=== PATIENT | male | born 1950 | race Caucasian/White ===

== ENCOUNTER 2018-05-10 09:13 | Emergency (ER) | payer OTHER, SELFPAY ==
[2018-05-10 09:14] VITALS: BP 136/76; PULSE 85; RESP 18; TEMP 36.6; O2SAT 98; BMI 27.1
--- NOTE | 2018-05-10 09:26 | CT_ITS ---
STUDY: CT ABDOMEN AND PELVIS WITHOUT CONTRAST REASON FOR EXAM: Male, 68 years old. FLANK PAIN, HEMATURIA, CHOLECYSTECTOMY, PANCREATIC CANCER. RADIATION DOSAGE (If Supplied By Facility): CTDIvol = ( 12.11 ) mGy, DLP = ( 677.92 ) mGycm TECHNIQUE: Transaxial images were obtained from the dome of the diaphragm to the symphysis pubis without oral contrast, and without intravenous contrast. Sagittal and coronal images were reconstructed. Individualized dose optimization techniques were used for this CT. COMPARISON: None. FINDINGS: There is atelectasis at the lung bases. The visualized portions of the heart are within normal limits. There is pneumobilia. There is non-visualization of the gallbladder, which may be secondary to either contraction or a prior cholecystectomy. Normal spleen. There are pancreatic calcifications in the distribution of the ducts consistent with chronic pancreatitis. There is atrophy of the pancreas Normal bilateral adrenal glands. There are multiple small calcifications of the right kidney, less than 2 mm. There are multiple small calcifications of the left kidney, the largest measures up to 3 mm. There is moderate hydroureteronephrosis on the left. There is a 3 mm millimeter calculus at the left uterus (axial image #159 series 2) Normal visualized stomach. Normal small intestine. There is mild amount of retained stool within the colon. There is diffuse atherosclerotic calcification of the abdominal aorta, without a demonstrated aneurysm. Normal inferior vena cava. Normal retroperitoneum. Normal urinary bladder. Normal abdominal wall. There are diffuse degenerative changes of the visualized lumbar spine. CT/Abdomen/Pelvis without Cont IMPRESSION: Moderate left hydroureteronephrosis. 3 mm left bladder calculus. Small bilateral renal calculi. Electronically Signed: Claudia James MD at 12:40 EDT Tel , Service support ,
--- NOTE | 2018-05-10 09:27 | ED.VISSUMM ---
- ER Visit Summary Date of Service: 05/10/18 Chief Complaint: Left flank pain History of Present Illness: The patient is a 68 M presenting with left flank pain. He states it started on Thursday. His pain started suddenly and has been intermittent. He states this feels similar to his previous kidney stones. He has had nausea with no vomiting. He has had mild dysuria and his urine has been dark in color. He has had subjective fevers. Denies diarrhea or constipation. Denies other complaints. Physical Examination: Vitals are stable. Patient is afebrile. Alert no acute distress. HEENT exam is unremarkable. Neck is supple. Lungs are clear and equal bilaterally. Heart is regular rate and rhythm. Abdomen is soft nontender nondistended. No rebound or guarding Back: Left CVA tenderness Extremities are unremarkable. Skin is warm and dry. No rash Remainder of exam is unremarkable. Emergency Department Course and Treatment: Patient is given morphine, Zofran. CBC, chemistries unremarkable other than glucose 131, creatinine 1.55. UA shows 0-5 white blood cells, 25-[address] flank shows moderate left hydroureteronephrosis. 3 mm left bladder calculus. Small bilateral renal calculi. Patient feels improved following pain medications. He is given short course of [place] and Zofran. He is advised to follow-up with his primary care physician. Advised return to ED for worsening complaints. Disposition: Discharge home Impression: Urolithiasis This note was generated with [employer] dictation software. It may contain incorrect words, spelling, and punctuation that were not noted in review of the chart prior to signing ED Disposition - Plan for ED Patient: Chief Complaint: Flank Pain Instructions: ED Stone Renal W Colic Prescriptions: Hydrocodone Bitart/Apap 5-325 [[place] 5MG-325MG] 1 tablet PO Q6H PRN PRN 3 Days #10 tablet PRN Reason: Pain Ondansetron [Zofran Odt] 4 mg PO Q8H PRN PRN #10 tablet PRN Reason: Nausea Referrals: Patel Messer MD [Primary Care Provider] - Tung Fleming MD [STAFF PHYSICIAN] -
[2018-05-10 09:38] LABS: Absolute Lymphocyte Count 1.36 X10^3/ul (0.83-4.51); Absolute Neutrophil Count 6.8 X10^3/uL (2.0-7.7); Basophil# 0.01 X10^3/uL; Basophil% 0.1 % (0-1); Eosinophil# 0.02 X10^3/uL; Eosinophils% 0.2 % (0-5); Hemoglobin 15.1 g/dl (13.0-16.5); Lymphocyte # 1.36 X10^3/ul (4.0); Lymphocyte % 14.7 % (19-41); Mean Corp Hgb Conc 34.3 g/gl (32-36); Mean Corpuscular Hgb 31.3 pg (27.0-32.0); Mean Corpuscular Volume 91.1 fL (80-94); Mean Platelet Vol. 9.3 fl (6.2-12.0); Monocyte# 1.07 X10^3/uL; Monocyte% 11.5 % (0-10); Neutrophil % 73.3 % (47-70); POSITIVE COUNT NO; POSITIVE DIFFERENTIAL NO; POSITIVE MORPHOLOGY NO; Platelet Count 188 K/mm3 (150-450); RBC Distribution Width CV 13.4 % (11.6-14.6); RBC Distribution Width SD 44.3 fl (35.1-43.9); Red Blood Count 4.83 M/mm3 (4.6-6.2); White Blood Count 9.3 K/mm3 (4.4-11.0)
[2018-05-10 09:47] LABS: Anion Gap 10 (5-15); BUN 18 mg/dL (7-18); BUN/Creat Ratio 11.6 RATIO (10-20); Calcium,Total 8.8 mg/dL (8.5-10.1); Chloride 100 mmol/L (98-107); Creatinine, Serum 1.55 mg/dL (0.70-1.30); EST Glomerular Filtration Rate 48 mL/min (>60); Est Glom Filt Rate - Afr Amer 58 mL/min (>60); Estimated Creatinine Clearance 51.46 ml/min; Glucose 131 mg/dL (74-106); Potassium 3.6 mmol/L (3.5-5.1); Sodium Level 136 mmol/L (136-145)
[2018-05-10] MEDS: Ondansetron 4 MG/2 ML Vial IV (09:53)
[2018-05-10] MEDS: Morphine 4 MG/ML Syringe IV ×2 (09:53→11:01)
[2018-05-10] MEDS: 0.9% Normal Saline 1,000 ML 999 ML IV (11:05)
[2018-05-10 11:33] VITALS: BP 163/89; PULSE 67; RESP 14; O2SAT 97
[2018-05-10] MEDS: HYDROmorphone 1 MG/ML Syringe IV (11:36)
[2018-05-10 12:29] LABS: Color, Urine Yellow (Yellow); Glucose, Dipstick Normal (Normal); Ketone-Dipstick 50 mg/dl (Negative); Leukocyte Esterase-Dipstick 25 /ul (Negative); Nitrite-Dipstick Negative (Negative); Occult Blood-Urine 250 /ul (Negative); Protein-Dipstick 30 mg/dl (Negative); Urine Bilirubin Dipstick Negative (Negative); Urine Clarity Sl. Cloudy (Clear); Urine Urobilinogen 1 mg/dl (Normal)
[2018-05-10 12:40] LABS: Bacteria 1+ /hpf (None Seen); Mucous, Urine 2+ /hpf (<or=2+); Red Blood Cells-Urine 25-50 SEEN /hpf (0-5); Squamous Epithelial Cells - UA 0-5 SEEN /hpf (0-5); White Blood Cells 0-5 SEEN /hpf (0-5)
--- NOTE | 2018-05-10 13:34 | ED.DEP ---
ED Disposition - Plan for ED Patient: Chief Complaint: Flank Pain Instructions: ED Stone Renal W Colic Prescriptions: Hydrocodone Bitart/Apap 5-325 [[place] 5MG-325MG] 1 tablet PO Q6H PRN PRN 3 Days #10 tablet PRN Reason: Pain Ondansetron [Zofran Odt] 4 mg PO Q8H PRN PRN #10 tablet PRN Reason: Nausea Referrals: Patel Messer MD [Primary Care Provider] - Tung Fleming MD [STAFF PHYSICIAN] -
[2018-05-10 13:40] VITALS: BP 158/91; PULSE 75; RESP 16; O2SAT 95
== END 2018-05-10 13:58 | disposition home or self-care (01) ==
LOC: ED 10:40
PROVIDERS: Emergency Provider Emergency Medicine; Family Provider Family Medicine; PCP Family Medicine
DX: N21.0 Calculus in bladder (principal); N13.30 Unspecified hydronephrosis; Z87.442 Personal history of urinary calculi
CPT/HCPCS: 74176; 80048; 81001; 85025; 96361; 96374; 96375; 96376; 99283; J7030; A4216; J2405

== ENCOUNTER → 2018-05-13 18:18 | Outpatient (CLI) | payer OTHER, SELFPAY | PROVIDERS: Family Provider Family Medicine; PCP Family Medicine; Visit Provider Nurse Practitioner Adult Health | DX: N39.0 Urinary tract infection, site not specified (principal); R31.9 Hematuria, unspecified | CPT/HCPCS: 87086 ==

== ENCOUNTER 2020-11-20 05:21 | Day surgery (SDC) | payer OTHER, SELFPAY ==
[2020-11-20] VITALS (9 sets, daily range): BP systolic 103–155; BP diastolic 71–89; PULSE 53–63; RESP 16–18; TEMP 36.2–36.7; O2SAT 93–100; BMI 29.1
--- NOTE | 2020-11-20 05:57 | PCM.HP.STD ---
Problem List (1) Screening for intestinal cancer Status: Acute History of Present Illness Date of Admission: 11/20/20 The patient is a 70 year old M who presents for screening colonoscopy today. The patient had a Whipple procedure done by Dr. Bola Arguello in half years ago. He is cared for and referred by Dr. Pb Kruse. The patient states that I assisted him with a colonoscopy 10 years ago. Currently his CEA 19 9 is slightly increased. He is being followed for his pancreatic cancer. He denies abdominal pain. No unexpected weight loss. No bright red blood per rectum or melena. He otherwise has a good feeling of health Past Medical History Allergies No Known Allergies Allergy (Verified 11/12/20 13:06) Home Medications: Ambulatory Orders Medication Instructions Recorded Lipase/Protease/Amylase [Creon Dr 2 cap PO BID 12/21/13 6,000 Units Capsule] Apixaban [Eliquis] 2.5 mg PO BID 05/10/18 Hydrocodone Bitart/Apap 5-325 1 tablet PO Q6H PRN PRN 3 Days #10 05/10/18 [[place] 5MG-325MG] tablet Ondansetron [Zofran Odt] 4 mg PO Q8H PRN PRN #10 tablet 05/10/18 Surgical History: noncontributory Smoking Status: Former smoker Review of Systems Constitutional: Denies: Fever, Night Sweats HEENT: Denies: Difficulty Swallowing Cardiovascular: Denies: Chest Pain Respiratory: Denies: Cough, Shortness of Breath Gastrointestinal: Denies: Abdominal Pain, Nausea, Melena Neurological: Denies: Difficulty swallowing Endocrine: Denies: Change in Body Habitus VTE Information - Inpt Only VTE Present on Admission: No - Physical Exam General: Alert, Oriented x3, Cooperative, No apparent distress HEENT: Atraumatic Oral: Moist Mucosa Neck: Supple Lungs: Clear to auscultation, Normal air movement Cardiovascular: Regular rate, Regular Rhythm Abdomen: Bowel Sounds Present, Soft, Non Tender Extremities: No Calf Tenderness Neurological: - - Normal cognition Psych/Mental Status: Normal Affect Assessment/Plan All Active Problems Screening for intestinal cancer (Acute) Patient with a personal history of resected pancreatic cancer now with a slightly elevating CA 19-9. He has not had a colonoscopy for 10 years. I propose for him a colonoscopy with possible biopsy or polypectomy is indicated. He is aware of the technique, benefit, risk and alternatives. He has had an opportunity to ask and have questions answered. He presents via our open access program today. Waqas Lockett M.D., F.A.C.S.
[2020-11-20] MEDS: Lactated Ringers 1,000 ML 75 ML IV (06:15)
--- NOTE | 2020-11-20 06:49 | OP.COLON_ITS ---
Patient Name: Evonne Khalil Procedure Date: 11/20/2020 5:36 AM Date of : 1950 Age: 70 Procedure: Colonoscopy Indications: Screening for colorectal malignant neoplasm Providers: Waqas Lockett MD Referring MD: Patel eMsser Medicines: Midazolam 3.5 mg IV, Meperidine 100 mg IV Patient Profile: Last Colonoscopy: 10 years ago. Complications: No immediate complications. Procedure: Pre-Anesthesia Assessment: - Prior to the procedure, a History and Physical was performed, and patient medications and allergies were reviewed. The patient's tolerance of previous anesthesia was also reviewed. The risks and benefits of the procedure and the sedation options and risks were discussed with the patient. All questions were answered, and informed consent was obtained. Prior Anticoagulants: The patient has taken Eliquis (apixaban), last dose was 2 days prior to procedure. ASA Grade Assessment: II - A patient with mild systemic disease. After reviewing the risks and benefits, the patient was deemed in satisfactory condition to undergo the procedure. After I obtained informed consent, the scope was passed under direct vision. Throughout the procedure, the patient's blood pressure, pulse, and oxygen saturations were monitored continuously. The Colonoscope was introduced through the anus and advanced to the cecum, identified by appendiceal orifice and ileocecal valve. The colonoscopy was performed without difficulty. The patient tolerated the procedure well. The quality of the bowel preparation was fair. The ileocecal valve and the appendiceal orifice were photographed. Moderate Sedation: Moderate (conscious) sedation was personally administered by the endoscopist. The following parameters were monitored: oxygen saturation, heart rate, blood pressure, and response to care. Total physician intraservice time was 15 minutes. Scope In: 6:30:10 AM Scope Withdrawal Time 0 hours 9 minutes 11 seconds Scope Out: 6:42:42 AM Total Procedure Duration Time 0 hours 12 minutes 32 seconds Findings: Hemorrhoids were found on perianal exam. The digital rectal exam was normal. Pertinent negatives include normal prostate (size, shape, and consistency). A few diverticula were found in the sigmoid colon. The exam was otherwise without abnormality. Impression: - Preparation of the colon was fair. - Hemorrhoids found on perianal exam. - Diverticulosis in the sigmoid colon. - The examination was otherwise normal. - No specimens collected. Recommendation: - Discharge patient to home. - Resume previous diet. - Continue present medications. - Repeat colonoscopy in 10 years for screening purposes. Procedure Code(s): --- Professional --- 15096, Colonoscopy, flexible; diagnostic, including collection of specimen(s) by brushing or washing, when performed (separate procedure) 83120, 59, Moderate sedation services provided by the same physician or other qualified health care associate performing the diagnostic or therapeutic service that the sedation supports, requiring the presence of an independent trained observer to assist in the monitoring of the patient's level of consciousness and physiological status; initial 15 minutes of intraservice time, patient age 5 years or older Diagnosis Code(s): --- Professional --- Z12.11, Encounter for screening for malignant neoplasm of colon K64.9, Unspecified hemorrhoids K57.30, Diverticulosis of large intestine without perforation or abscess without bleeding CPT copyright 2017 [employer]. All rights reserved. The codes documented in this report are preliminary and upon operator ground based air defence review may be revised to meet current compliance requirements. Waqas Lockett MD 11/20/2020 6:48:33 AM This report has been signed electronically. Number of Addenda: 0 Note Initiated On: 11/20/2020 5:36 AM
--- NOTE | 2020-11-20 06:49 | OP.CCLET_ITS ---
11/20/2020 Miles Marx [address] [facility] [address] [place] [address] Re : Colonoscopy procedure for Evonne Khalil Dear Dr. Marx This procedure was performed on Friday, November 20, 2020. My impressions and recommendations are as follows: Impressions : - Preparation of the colon was fair. - Hemorrhoids found on perianal exam. - Diverticulosis in the sigmoid colon. - The examination was otherwise normal. - No specimens collected. Recommendations : - Discharge patient to home. - Resume previous diet. - Continue present medications. - Repeat colonoscopy in 10 years for screening purposes. My findings are described in the full procedure note, which is enclosed. If I can be of further assistance, please feel free to contact me at Doctor phone number(s): Work: . Sincerely, Waqas Lockett MD 11/20/2020 6:48:33 AM This report has been signed electronically.
== END 2020-11-20 07:30 | disposition home or self-care (01) ==
LOC: EN 05:23 → AC 05:27
PROVIDERS: PCP Family Medicine; Referring Provider Family Medicine; Visit Provider Surgery
PROC: 0DJD8ZZ Inspection of Lower Intestinal Tract, Via Natural or Artificial Opening Endoscopic (ICD-10-PCS; CPT 45378; principal; 2020-11-20 06:25)
DX: Z12.11 Encounter for screening for malignant neoplasm of colon (principal); Z20.828 Contact with and (suspected) exposure to other viral communicable diseases; K57.30 Diverticulosis of large intestine without perforation or abscess without bleeding; K64.9 Unspecified hemorrhoids; C25.9 Malignant neoplasm of pancreas, unspecified; Z87.891 Personal history of nicotine dependence; Z79.899 Other long term (current) drug therapy; Z79.01 Long term (current) use of anticoagulants
CPT/HCPCS: 45378; 87426; 99152; 99153; C9803; J7120

== ENCOUNTER 2021-12-12 17:05 | Outpatient (CLI) | payer OTHER, SELFPAY ==
--- NOTE | 2021-12-12 17:14 | RAD_ITS ---
STUDY: X-RAY CHEST REASON FOR EXAM: Male, 71 years old. Technologist Notes LOW GRADE FEVER, HX OF UPPER RIGHT LOBE LUNG CA, AND LOBECTOMY LUNG CANCER TECHNIQUE: XR Chest 2 Views COMPARISON: 08/16/2012 FINDINGS: There is a right pleural effusion. Right lower lobe infiltrate. Left lower lobe atelectasis or scarring. Normal size heart. Normal mediastinum and bailey. Normal visualized pulmonary arteries. There is atherosclerotic calcification of the aortic arch with tortuosity. There are diffuse degenerative changes of the visualized thoracic spine. There is degenerative osteoarthritis of the bilateral shoulders. There is no demonstrated abnormality of the visualized soft tissue structures of the upper abdomen. RAD/Chest PA and Lateral IMPRESSION: There is a right pleural effusion. Right lower lobe infiltrate. Electronically Signed: Yehuda Fox MD at 15:28 EST ,
[2021-12-12 17:47] LABS: Absolute Lymphocyte Count 1.35 X10^3/uL (0.83-4.51); Basophil# 0.02 X10^3/uL; Basophil% 0.4 % (0-1); Eosinophil# 0.48 X10^3/uL; Eosinophils% 10.7 % (0-5); Hematocrit 40.5 % (40-54); Hemoglobin 13.6 g/dL (13.0-16.5); Lymphocyte # 1.35 X10^3/ul (0.83-4.51); Lymphocyte % 30.1 % (19-41); Mean Corp Hgb Conc 33.6 g/dL (32-36); Mean Corpuscular Hgb 30.8 pg (27.0-32.0); Mean Corpuscular Volume 91.6 fL (80-94); Mean Platelet Vol. 8.9 fl (6.2-12.0); Monocyte% 13.4 % (0-10); NRBC Flagged by Analyzer 0 % (0-5); Neutrophil # 1.97 X10^3/uL (2.7-7.7); Neutrophil % 44.1 % (47-70); Platelet Count 386 K/mm3 (150-450); RBC Distribution Width CV 13.3 % (11.6-14.6); RBC Distribution Width SD 45.3 fl (35.1-43.9); Red Blood Count 4.42 M/mm3 (4.6-6.2); White Blood Count 4.5 K/mm3 (4.4-11.0)
[2021-12-12 18:01] LABS: Erythrocyte Sedimentation Rate 37 mm/hr (0-20)
[2021-12-12 18:25] LABS: ALB/GLOB Ratio 0.7 RATIO (0.9-2.4); AST(SGOT) 31 U/L (15-37); Alanine Aminotransfer ALT/SGPT 42 U/L (16-61); Albumin, Serum 2.9 g/dL (3.2-5.0); Alkaline Phosphatase 63 U/L (45-117); Anion Gap 5 (5-15); BUN 17 mg/dL (7-18); BUN/Creat Ratio 15.6 RATIO (10-20); Calcium,Total 8.6 mg/dL (8.5-10.1); Chloride 105 mmol/L (98-107); Creatinine, Serum 1.09 mg/dL (0.70-1.30); EST Glomerular Filtration Rate 71 mL/min (>60); Est Glom Filt Rate - Afr Amer 86 mL/min (>60); Globulin 4.3 g/dL (2.2-4.2); Glucose 104 mg/dL (74-106); Potassium 4.2 mmol/L (3.5-5.1); Protein, Total 7.2 g/dL (6.4-8.2); Sodium Level 135 mmol/L (136-145); Thyroid Stim Hormone (TSH) 2.23 uIU/mL (0.358-3.74)
== END 2021-12-12 23:59 | disposition short-term general hospital (02) ==
PROVIDERS: PCP Family Medicine; Referring Provider Family Medicine; Visit Provider Family Medicine
DX: R53.81 Other malaise (principal); Z85.118 Personal history of other malignant neoplasm of bronchus and lung
CPT/HCPCS: 36415; 71046; 80053; 84443; 85025; 85652; 86140

== ENCOUNTER 2022-01-08 12:37 | Inpatient (IN) | payer OTHER, MEDICARE, SELFPAY ==
[2022-01-08 12:52] VITALS: BP 146/110; PULSE 93; RESP 18; TEMP 36.1; O2SAT 97; BMI 28.5
--- NOTE | 2022-01-08 13:10 | EKG12_ITS ---
Test Reason : PAIN Blood Pressure : / mmHG Vent. Rate : 095 BPM Atrial Rate : 095 BPM P-R Int : 162 ms QRS Dur : 094 ms QT Int : 350 ms P-R-T Axes : 062 -23 065 degrees QTc Int : 439 ms Normal sinus rhythm Anteroseptal infarct , age undetermined Abnormal ECG Confirmed by GUNNER DAHL, YENIFER ([id number]), medical editor TOSIN HANDY ([id number]) on 01/10/2022 9:51:22 AM Referred By: Confirmed By:YENIFER MARTINO MD
--- NOTE | 2022-01-08 13:14 | EDS_ITS ---
HPI History of Present Illness Chief Complaint: Fall Informant: patient Onset/Context/Timing Onset: Today Timing: Continuous Current Severity: Severe Associated Symptoms Associated Symptoms: None Narrative Narrative: Patient slipped on ice and injured his left lower leg. He noted an obvious deformity. Did not notice a skin break. Denies any other injuries. 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 Prior similar symptoms: No Recent Illness/Hospitalization: No PFSH PFSH Medical History Hx of cancer of lung Hx of pulmonary embolus Home Medications [id number]-dieozvy [Ericon Dr 6,000 Units Capsule] 2 cap PO BID 12/21/13 [History Last Taken 12/21/13] apixaban [Eliquis] 5 mg PO BID 05/10/18 [History Last Taken 11/17/20] Allergy/AdvReac Type Severity Reaction Status Date / Time No Known Allergies Allergy Verified 01/08/22 12:56 Surgical History (Updated 01/08/22 @ 12:59 by Angeline Caba) History of lobectomy of lung History of Whipple procedure Social History Smoking Status: Former smoker ROS ROS ED Constitutional Constitutional ED: Denies fever(s) Eyes Eyes: Denies change in vision ENT ENT ED: Denies ear pain Cardiovascular Cardiovascular: Denies chest pain Respiratory/Chest Respiratory/Chest: Denies dyspnea Gastrointestinal Gastrointestinal: Denies abdominal pain Genitourinary Genitourinary ED: Denies dysuria Musculoskeletal Musculoskeletal: Reports arthralgias Integumentary Denies rash Neurologic Neurologic: Denies headache(s) Psychiatric Psychiatric: Denies depression Endocrine Endocrinology: Denies polyuria Allergic/Immunologic Allergic/Immunologic ED: Denies urticaria EXAM Physical Exam Const Vital Signs: 01/08/22 12:52 01/08/22 15:16 Temperature 97.0 F L Temperature Source Temporal Pulse Rate 93 81 Respiratory Rate 18 18 Blood Pressure 146/110 H 168/92 H Blood Pressure Mean 122 117 Pulse Ox 97 99 Oxygen Delivery Method Room Air Room Air Positive well nourished and well developed General Appearance ED: well developed HEENT Negative for trauma Eyes EOMs intact bilaterally Neck supple Resp normal respiratory effort Cardio regular rate GI normal to inspection, nondistended, normoactive bowel sounds Extremity Extremity Narrative: Deformity to left lower extremity distal third. Skin intact. General Extremety ED: Yes tenderness Neuro oriented x3 Sensorium / Orientation: alert Psych mental status grossly normal Skin no rashes or lesions noted MDM MDM MDM Narrative Medical decision making narrative: Patient has an obvious deformity to his left lower leg. Skin is intact. He is neurovascularly intact distally. X-rays confirmed a distal tibia and proximal fibula fracture. He was placed in a posterior and sugar tong Ortho-Glass splint. Fabricated by me. Copious padding. He was neurovascular intact distally afterwards. Patient denies hitting his head. Denies any head or neck pain. No neurologic symptoms or complaints. Medical clearance testing was performed. I spoke with Alberta Freeamn. Options were outpatient follow-up with nonweightbearing status, hospitalization while holding anticoagulation and possible operation as early as Thursday, or transfer to a trauma center. Patient would like to stay in town. He did not feel that he would do well at home. I spoke with medicine to admit for further care. X-rays were reviewed by the radiologist and myself. EKG showed sinus rhythm with nonspecific anterior septal changes. No sign of acute ischemia or infarction pattern. Impression #1 mechanical fall Impression #2 left closed tibia and fibula fracture Lab Data Attestation: I reviewed the patient's lab results. Labs: Laboratory Results - last 24 hr 01/08/22 01/08/22 01/08/22 13:35 13:35 13:35 WBC 11.3 H RBC 4.21 L Hgb 13.6 Hct 38.8 L MCV 92.2 MCH 32.3 H MCHC 35.1 RDW Std Deviation 47.9 H RDW Coeff of Tess 14.4 Plt Count 218 MPV 9.2 Immature Gran % (Auto) 0.800 Neut % (Auto) 79.1 H Lymph % (Auto) 11.2 L [place] % (Auto) 7.6 Eos % (Auto) 0.9 Baso % (Auto) 0.4 Absolute Neuts (auto) 8.9 H Absolute Lymphs (auto) 1.26 Nucleated RBC % 0 PT 14.3 INR 1.2 APTT 26.1 Sodium 141 Potassium 3.8 Chloride 110 H Carbon Dioxide 26.0 Anion Gap 5 BUN 17 Creatinine 1.19 Estim Creat Clear Calc 64.30 Est GFR (MDRD) Af Amer 78 Est GFR (MDRD) Non-Af 64 BUN/Creatinine Ratio 14.3 Glucose 123 H Calcium 8.8 Radiography Diagnostic Testing: Clinical Impression(s) from Imaging Studies Chest X-Ray 01/08/22 14:05 IMPRESSION: Stable elevation of the right hemidiaphragm with mild pleural parenchymal changes at the right lung base. Electronically Signed: Fer Hollingsworth MD at 14:33 EST , Tibia/Fibula X-Ray 01/08/22 14:05 IMPRESSION: Nondisplaced spiral fracture of the proximal neck of the fibula as well as a spiral fracture of the distal diaphysis of the tibia. Soft tissue swelling. Electronically Signed: Fer Hollingsworth MD at 14:35 EST , X-rays were reviewed by the radiologist and myself. Discharge Plan Triage Chief Complaint: Fall ED Provider: Pedrito Rodriguez Dx/Rx/DC Orders Prescriptions: No Action Creon 1 EACH capsule,delayed release(DR/EC) 2 cap PO BID RF: 0 Eliquis 2.5 MG tablet 5 mg PO BID RF: 0 Primary Care Provider: Patel Messer
[2022-01-08] MEDS: Ondansetron 4 MG/2 ML Vial IV (13:30)
[2022-01-08] MEDS: HYDROmorphone 1 MG/ML Syringe IV (13:30)
--- NOTE | 2022-01-08 13:33 | EX.ED.DYSGE1 ---
HPI History of Present Illness Chief Complaint: Fall Informant: patient Onset/Context/Timing Onset: Days Context: Gradual Onset Timing: Continuous Location: R groin Worsened by: tough Associated Symptoms Associated Symptoms: none Narrative Narrative: Gradual onset to the right groin with a boil. Patient had this before. History of hidradenitis suppurativa. Not currently on antibiotics or blood thinners. No fever or systemic symptoms. Prior similar symptoms: Yes Recent Illness/Hospitalization: No PFSH PFSH Medical History Hx of cancer of lung Hx of pulmonary embolus Home Medications ahevxv-dkudoyhj-rpouhjw [Creon Dr 6,000 Units Capsule] 2 cap PO BID 12/21/13 [History Last Taken 12/21/13] apixaban [Eliquis] 5 mg PO BID 05/10/18 [History Last Taken 11/17/20] Allergy/AdvReac Type Severity Reaction Status Date / Time No Known Allergies Allergy Verified 01/08/22 12:56 Surgical History (Updated 01/08/22 @ 12:59 by Angeline Caba) History of lobectomy of lung History of Whipple procedure Social History Smoking Status: Former smoker EXAM Physical Exam Const Vital Signs: 01/08/22 12:52 Temperature 97.0 F L Temperature Source Temporal Pulse Rate 93 Respiratory Rate 18 Blood Pressure 146/110 H Blood Pressure Mean 122 Pulse Ox 97 Oxygen Delivery Method Room Air Discharge Plan Triage Chief Complaint: Fall ED Provider: Pedrito Rodriguez Dx/Rx/DC Orders Prescriptions: No Action Creon 1 EACH capsule,delayed release(DR/EC) 2 cap PO BID RF: 0 Eliquis 2.5 MG tablet 5 mg PO BID RF: 0 Primary Care Provider: Patel Messer
[2022-01-08 13:48] LABS: Absolute Lymphocyte Count 1.26 X10^3/uL (0.83-4.51); Absolute Neutrophil Count 8.9 X10^3/uL (2.0-7.7); Basophil# 0.04 X10^3/uL; Basophil% 0.4 % (0-1); Eosinophils% 0.9 % (0-5); Hematocrit 38.8 % (40-54); Hemoglobin 13.6 g/dL (13.0-16.5); Lymphocyte # 1.26 X10^3/ul (0.83-4.51); Lymphocyte % 11.2 % (19-41); Mean Corp Hgb Conc 35.1 g/dL (32-36); Mean Corpuscular Hgb 32.3 pg (27.0-32.0); Mean Corpuscular Volume 92.2 fL (80-94); Mean Platelet Vol. 9.2 fl (6.2-12.0); Monocyte# 0.86 X10^3/uL; Monocyte% 7.6 % (0-10); NRBC Flagged by Analyzer 0 % (0-5); Neutrophil # 8.91 X10^3/uL (2.7-7.7); Neutrophil % 79.1 % (47-70); Platelet Count 218 K/mm3 (150-450); RBC Distribution Width CV 14.4 % (11.6-14.6); RBC Distribution Width SD 47.9 fl (35.1-43.9); Red Blood Count 4.21 M/mm3 (4.6-6.2); White Blood Count 11.3 K/mm3 (4.4-11.0)
[2022-01-08 13:57] LABS: International Normalized Ratio 1.2; Prothrombin Time (Protime)PT. 14.3 SECONDS (11.7-14.9)
[2022-01-08 13:58] LABS: Partial Thromboplast Time 26.1 Seconds (24.1-36.2)
[2022-01-08 13:59] LABS: BUN 17 mg/dL (7-18); Creatinine, Serum 1.19 mg/dL (0.70-1.30); EST Glomerular Filtration Rate 64 mL/min (>60); Glucose 123 mg/dL (74-106)
[2022-01-08 14:00] LABS: Anion Gap 5 (5-15); BUN/Creat Ratio 14.3 RATIO (10-20); Calcium,Total 8.8 mg/dL (8.5-10.1); Chloride 110 mmol/L (98-107); Est Glom Filt Rate - Afr Amer 78 mL/min (>60); Potassium 3.8 mmol/L (3.5-5.1); Sodium Level 141 mmol/L (136-145)
--- NOTE | 2022-01-08 14:05 | RAD_ITS ---
STUDY: X-RAY CHEST REASON FOR EXAM: Male, 71 years old. Preoperative evaluation. TECHNIQUE: Single AP portable view of the chest. COMPARISON: Comparison is made with prior study dated 12/12/2021. FINDINGS: There is elevation of the right hemidiaphragm. There is blunting of the right costal angle with mild increased linear markings suggestive of asthma or scarring. This is unchanged. Normal size heart. Normal mediastinum and bailey. Normal visualized pulmonary arteries. There is atherosclerotic tortuosity of the aortic arch and descending thoracic aorta. There are diffuse degenerative changes of the visualized thoracic spine. There is degenerative osteoarthritis of the bilateral shoulders. There is no demonstrated abnormality of the visualized soft tissue structures of the upper abdomen. RAD/Chest 1 View (Portable) IMPRESSION: Stable elevation of the right hemidiaphragm with mild pleural parenchymal changes at the right lung base. Electronically Signed: Fre Hollingsworth MD at 14:33 EST ,
--- NOTE | 2022-01-08 14:05 | RAD_ITS ---
STUDY: X-RAY - LEFT TIBIA AND FIBULA REASON FOR EXAM: Male, 71 years old. Fracture TECHNIQUE: 2 view(s) of the tibia and fibula were obtained. COMPARISON: None. FINDINGS: Spiral fracture of the distal tibial diaphysis. Nondisplaced oblique fracture of the proximal neck of the fibula. Soft tissue swelling. RAD/Tibia & Fibula 2 Views IMPRESSION: Nondisplaced spiral fracture of the proximal neck of the fibula as well as a spiral fracture of the distal diaphysis of the tibia. Soft tissue swelling. Electronically Signed: Fer Hollingsworth MD at 14:35 EST ,
--- NOTE | 2022-01-08 15:15 | PCM.HP.STD ---
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 He does take Eliquis for history of VTE and did take his medication on day of presentation in the AM. Pain rated 10 out of 10 with any movement to the left lower extremity. Sensation remains intact and he is able to wiggle his toes. In the ED patient was placed in a splint and sugar tong. Work-up in the ED included T 97, heart rate 93, BP initially 146/110, respiratory rate 18, 97% room air, CBC with WC 11.3, hemoglobin 13.6, platelet 218 with left shift, unremarkable coags, BMP with chloride 110, glucose 123 otherwise not marked appearing, rapid Covid antigen negative, chest x-ray with stable elevation right hemidiaphragm with mild pleural-parenchymal changes at the right lung base, plain film of the left tib-fib with a nondisplaced spiral fracture of the proximal neck of the fibula as well as a spiral fracture of the distal diaphysis of the tibia with soft tissue swelling. Orthopedic surgery, Dr. Alonso contacted per ED physician and discussed case. Hospitalist also contacted Dr. Alonso to review plan for operative intervention. [facility] Medical History (Updated 01/08/22 @ 15:[address] Caro Shelley MD) Factor VIII deficiency History of pancreatic cancer Hx of cancer of lung Hx of pulmonary embolus Home Medications [id number] [Tamara Townsend 6,000 Units Capsule] 2 cap PO BID 12/21/13 [History Last Taken 12/21/13] apixaban [Eliquis] 5 mg PO BID 01/08/22 [History Last Taken 01/08/22] ascorbic acid (vitamin C) 500 mg PO DAILY 01/08/22 [History Last Taken 01/08/22] cholecalciferol (vitamin D3) 125 mcg PO DAILY 01/08/22 [History Last Taken 01/08/22] rye grass extract-quercetin 1 tab PO DAILY 01/08/22 [History Last Taken 01/08/22] zinc 25 mg PO DAILY 01/08/22 [History Last Taken 01/08/22] Allergy/AdvReac Type Severity Reaction Status Date / Time No Known Allergies Allergy Verified 01/08/22 12:56 Family History (Updated 01/08/22 @ 15:[address] Caro Shelley MD) Father Myocardial infarction age 54 from sudden [place]. Heart disease Hypertension Sister Cancer Sister with breast CA. Brother Cancer Brother with prostate CA and another Brother x 1 with Skin CA. Family History other other (Denies any marked maternal family history including DM, CA, HD. Mother age 60 secondary to MVA.) Surgical History (Updated 01/08/22 @ 15:[address] Caro Shelley MD) History of lobectomy of lung History of Whipple procedure Social History (Updated 01/08/22 @ 15:[address] Caro Shelley MD) household members: spouse Smoking Status: Former smoker how long ago did patient quit smoking: Smoked 2-3 years late teens to early 20s, 1/2 ppd until quit. alcohol intake: current alcohol intake frequency: a few times a week substance use type: does not use ROS ROS Narrative Admission Review of Systems: CONSTITUTIONAL: No weight loss, fever, chills, + weakness or fatigue. HEENT: Eyes: No visual loss, blurred vision, double vision or yellow sclerae. Ears, Nose, Throat: No hearing loss, sneezing, congestion, runny nose or sore throat. SKIN: No rash or itching, lesions, wounds. CARDIOVASCULAR: No chest pain, chest pressure or chest discomfort, palpitations, edema, orthopnea, syncopal events. RESPIRATORY: No shortness of breath, cough or sputum, wheezing, hemoptysis. GASTROINTESTINAL: No anorexia, nausea, vomiting or diarrhea, abdominal pain, melena, BRBPR. GENITOURINARY: No dysuria, frequency, urgency or retention. NEUROLOGICAL: No headache, dizziness, syncope, paralysis, ataxia, numbness or tingling in the extremities, focal weakness, change in bowel or bladder control, seizure. MUSCULOSKELETAL: + muscle, back pain, joint pain or stiffness. HEMATOLOGIC: + anemia, bleeding or bruising. LYMPHATICS: No enlarged nodes. No history of splenectomy. PSYCHIATRIC: No history of depression or anxiety. ENDOCRINOLOGIC: No reports of sweating, cold or heat intolerance. No polyuria or polydipsia. ALLERGIES: No history of asthma, hives, eczema or rhinitis. Vital Signs Vital Signs Vital Signs: 01/08/22 12:52 Temperature 97.0 F L Temperature Source Temporal Pulse Rate 93 Respiratory Rate 18 Blood Pressure 146/110 H Blood Pressure Mean 122 Pulse Ox 97 Oxygen Delivery Method Room Air Weight Weight: 210 lb Body Mass Index (BMI) 28.5 Physical Exam Narrative Physical Examination: General: Awake, alert, oriented x 3 and cooperative, laying in the ED bed, fatigued, notes pain currently improved with Dilaudid. Skin: Normal color, normal turgor, no icterus, no cyanosis, left lower extremity wrapped up. HEENT: AT/NC, EOMI, PERRLA, mildly dry MM, no carotid bruits or JVD noted. Lungs: Mildly diminished, greater bases, appropriate effort, no rales, ronchi or wheezing. Heart: Currently regular rate and rhythm; no gallop, rub audible. Abdomen: Soft, mildly overweight, NTTP, ND, distant mildly hyperactive BS, no HSM. Extremities: No cyanosis, clubbing, or edema. Neurological: Patient awake, alert, oriented as noted, cognitive function intact; pupils equally reactive to light and accommodation, cranial nerves II-XII grossly normal, moving all 4 extremities except expected limited movement left lower extremity given spiral fracture tib-fib with splinting and sugar tong in place, sensation intact, able to move toes, strength accordingly severely global decreased. Psychiatric: Affect appears fatigued, notes discomfort lessened with pain medications, no acute evidence of depressive or anxiety feelings. Results Lab / Micro Data Result Diagrams: 01/08/22 13:35 01/08/22 13:35 Labs: Laboratory Results - last 24 hr 01/08/22 13:35: WBC 11.3 H, RBC 4.21 L, Hgb 13.6, Hct 38.8 L, MCV 92.2, MCH 32.3 H, MCHC 35.1, RDW Std Deviation 47.9 H, RDW Coeff of Tess 14.4, Plt Count 218, MPV 9.2, Immature Gran % (Auto) 0.800, Neut % (Auto) 79.1 H, Lymph % (Auto) 11.2 L, [place] % (Auto) 7.6, Eos % (Auto) 0.9, Baso % (Auto) 0.4, Absolute Neuts (auto) 8.9 H, Absolute Lymphs (auto) 1.26, Nucleated RBC % 0 01/08/22 13:35: PT 14.3, INR 1.2, APTT 26.1 01/08/22 13:35: Sodium 141, Potassium 3.8, Chloride 110 H, Carbon Dioxide 26.0, Anion Gap 5, BUN 17, Creatinine 1.19, Estim Creat Clear Calc 64.30, Est GFR (MDRD) Af Amer 78, Est GFR (MDRD) Non-Af 64, BUN/Creatinine Ratio 14.3, Glucose 123 H, Calcium 8.8 Micro: Microbiology 01/08/22 14:10 Nasal Secretion SARS-CoV-2 Antigen (Rapid) - Final Radiology Impression Chest X-Ray 01/08/22 14:05 IMPRESSION: Stable elevation of the right hemidiaphragm with mild pleural parenchymal changes at the right lung base. Electronically Signed: Fer Hollingsworth MD at 14:33 EST , Tibia/Fibula X-Ray 01/08/22 14:05 IMPRESSION: Nondisplaced spiral fracture of the proximal neck of the fibula as well as a spiral fracture of the distal diaphysis of the tibia. Soft tissue swelling. Electronically Signed: Fer Hollingsworth MD at 14:35 EST , Assessment & Plan Assessment/Plan (1) Spiral fracture of shaft of fibula: QUALIFIERS: Encounter type: initial encounter Fracture type: closed Fracture alignment: nondisplaced Laterality: left Qualified Code(s): S82.445A - Nondisplaced spiral fracture of shaft of left fibula, initial encounter for closed fracture (2) Spiral fracture of shaft of tibia: QUALIFIERS: Encounter type: initial encounter Fracture type: closed Fracture alignment: nondisplaced Laterality: left Qualified Code(s): S82.245A - Nondisplaced spiral fracture of shaft of left tibia, initial encounter for closed fracture PLAN: The patient is a 71 y/o M w/ PMHx: Pancreatic cancer s/p whipple with recurrent disease to the lung s/p R lung lobectomy remotely, 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 #1. Mechanical fall, slip with left lower extremity intractable pain with left tib-fib spiral fracture: Orthopedic surgery consulted from ED. Will admit to [facility], maintain NPO for planned OR likely after 1 pm Thursday, gentle IVFs, monitor I/Os, frequent positioning, fall precautions, NWB to LLE, elevation LLE, PRN pain regimen, PRN anti-emetic regimen. PT/OT following operative intervention. CM consulted for discharge planning. NSQIP with below average risk for operative complications however patient given injury pattern does have a risk for potential compartment syndrome before and after surgery per discussion with orthopedic surgery, average risk for need to transition to skilled facility versus rehab facility following intervention. EKG reviewed with no acute evidence of ischemia. Patient is a very functional individual prior to this incident therefore agree with progression to OR which with planned per discussion with surgery on Thursday. #2. Elevated BP without hypertensive diagnosis: Patient with ED blood pressure is elevated however could certainly be secondary to acute severe pain, will continue closely monitor and add oral regimen if appropriate, as needed IV hydralazine in interim. #3. History of VTE w/ Factor VIII deficiency: Patient with history of DVT, PE with lung cancer history on chronic Eliquis regimen, last dose 01/08/2020 2 AM, will hold at this time as patient has been cleared by Dr. Kruse previously to hold several days for surgical interventions with no overlap and given high risk for compartment syndrome per discussion with orthopedic surgery this is their preference. #4. History pancreatic cancer with metastatic history: Patient with history of pancreatic cancer status post Whipple with eventual right lung suspected lower lobe disease concurrently status post partial lobectomy, considered in remission, encourage continued outpatient oncology follow-up. #5. DVT prophylaxis: SCD to right lower extremity only given acute presentation as noted, Eliquis dose last 01/08/2020 2 AM which will be held. Initially had consideration to transition to heparin drip but discussed frankly with patient as orthopedic surgery did note a significant risk for compartment syndrome with his injury with preference for no anticoagulant therapy and he notes that he has been cleared previously by Dr. Kruse to be completely off of his anticoagulation prior to operative interventions for several days at a time. #6. CODE STATUS: Full code. Does not have healthcare power of head filter tank tender helper nor living will set up. is present for conversations. Encouraged them to discuss these items with case management/social work for assistance in initiating. Charges/Coding Visit Charges Inpatient E&M: 21983 Init Hosp L3
[2022-01-08 15:16] VITALS: BP 168/92; PULSE 81; RESP 18; O2SAT 99
[2022-01-08] MEDS: HYDROmorphone 0.5 MG/0.5 ML SYRINGE IV (15:31)
[2022-01-08 15:35] VITALS: BP 160/89; PULSE 90; RESP 16; TEMP 36.1; O2SAT 97
--- NOTE | 2022-01-08 15:55 | CASEMGMT ---
RN ROMAIN Assessment: RN CM to room to meet with patient for initial transition planning/care coordination assessment. RN ROMAIN introduced self and role at [facility]. Patient voices understanding and consents to assessment at this time. Patient's Sugar Khalil present at bedside and active in transition planning. Patient is alert and oriented and answers all questions appropriately, reclined on ER cart in no apparent distress. Care providers, pharmacy, and demographics verified/updated at this time. Admitting Dx: fall, left tib/fib spiral fracture PCP: Patel Messer Specialists: Masci- oncology Preferred Pharmacy: [facility] Insurance: [employer] [facility] Prescription Benefit: yes Living Will/HPOA: Patient denies having a living will or HPOA. LNOK: Sugar Khalil Living Arrangements: Patient lives with in two story house with 2 steps to enter the home with a handrail present. Bathroom available on first floor and states able to setup sleeping arrangements on first floor as well. Patient states independent with ADLs prior to hospitalization. Smoking/ETOH: Former smoker (quit 1975), admits to occasional ETOH use Transportation: Patient drives self and able to drive patient. Patient denies transportation concerns. DME/HHC/SNF: Patient has tub bench, raised toilet seat, hand-held shower and FWW available for use at home. Denies previous HHC or SNF stays. Patient takes Eliquis for history of VTE. Patient has no concerns with going home at time of discharge and denies need for HHC. CM to follow for any discharge planning/needs. Patient and voice no concerns/needs at this time. Advised patient and to ask for CM if any questions/concerns/needs arise. Voices understanding. Plan: home
[2022-01-08 17:00] VITALS: BP 168/98; PULSE 91; RESP 16; TEMP 36.7; O2SAT 97
[2022-01-08 17:01] VITALS: BMI 28.5
[2022-01-08 17:23] LABS: AST(SGOT) 37 U/L (15-37); Alanine Aminotransfer ALT/SGPT 49 U/L (16-61); Albumin, Serum 3.2 g/dL (3.2-5.0); Alkaline Phosphatase 66 U/L (45-117); Bilirubin, Direct 0.11 mg/dL (0.00-0.30); Globulin 3.6 g/dL (2.2-4.2); Protein, Total 6.8 g/dL (6.4-8.2)
[2022-01-08] MEDS: 0.9% Normal Saline 1,000 ML 100 ML IV (17:53)
[2022-01-08 18:01] VITALS: BP 137/90
[2022-01-08] MEDS: oxyCODONE 5 MG Tablet PO ×2 (18:31→23:29)
[2022-01-08] MEDS: Senna/Docusate Sodium 1 Tablet 2 TABLET PO (20:46)
[2022-01-08 21:00] VITALS: BP 141/77; PULSE 90; RESP 16; TEMP 36.7; O2SAT 97
[2022-01-09 02:35] VITALS: BP 124/69; PULSE 71; RESP 16; TEMP 36.6; O2SAT 97
[2022-01-09] MEDS: oxyCODONE 5 MG Tablet PO ×2 (06:05→14:44)
[2022-01-09 06:29] LABS: Absolute Lymphocyte Count 1.74 X10^3/uL (0.83-4.51); Absolute Neutrophil Count 3.7 X10^3/uL (2.0-7.7); Basophil# 0.03 X10^3/uL; Basophil% 0.5 % (0-1); Eosinophil# 0.17 X10^3/uL; Eosinophils% 2.6 % (0-5); Hematocrit 35.6 % (40-54); Hemoglobin 12.1 g/dL (13.0-16.5); Lymphocyte # 1.74 X10^3/ul (0.83-4.51); Mean Corpuscular Hgb 30.9 pg (27.0-32.0); Mean Platelet Vol. 9.1 fl (6.2-12.0); Monocyte# 0.75 X10^3/uL; Monocyte% 11.6 % (0-10); NRBC Flagged by Analyzer 0 % (0-5); Neutrophil # 3.72 X10^3/uL (2.7-7.7); Neutrophil % 57.7 % (47-70); Platelet Count 206 K/mm3 (150-450); RBC Distribution Width CV 14.6 % (11.6-14.6); RBC Distribution Width SD 48.5 fl (35.1-43.9); Red Blood Count 3.91 M/mm3 (4.6-6.2); White Blood Count 6.5 K/mm3 (4.4-11.0)
[2022-01-09 07:02] LABS: ALB/GLOB Ratio 0.8 RATIO (0.9-2.4); AST(SGOT) 27 U/L (15-37); Alanine Aminotransfer ALT/SGPT 40 U/L (16-61); Albumin, Serum 2.9 g/dL (3.2-5.0); Alkaline Phosphatase 64 U/L (45-117); Anion Gap 4 (5-15); BUN 14 mg/dL (7-18); BUN/Creat Ratio 13.1 RATIO (10-20); Calcium,Total 8.3 mg/dL (8.5-10.1); Chloride 106 mmol/L (98-107); Creatinine, Serum 1.07 mg/dL (0.70-1.30); EST Glomerular Filtration Rate 73 mL/min (>60); Est Glom Filt Rate - Afr Amer 88 mL/min (>60); Estimated Creatinine Clearance 71.52 ml/min; Globulin 3.5 g/dL (2.2-4.2); Glucose 104 mg/dL (74-106); Potassium 3.8 mmol/L (3.5-5.1); Protein, Total 6.4 g/dL (6.4-8.2); Sodium Level 135 mmol/L (136-145)
[2022-01-09 08:00] VITALS: BP 132/70; PULSE 74; RESP 18; TEMP 36.6; O2SAT 95
[2022-01-09] MEDS: Senna/Docusate Sodium 1 Tablet 2 TABLET PO (08:35)
--- NOTE | 2022-01-09 10:45 | PCM.PN.HOSP ---
Documented by User: Anita Narvaez NP, [employer]IAL [employer]B [employer]TER-C 01/09/22 10:56 Subjective Subjective Patient seen and examined. Denies significant pain. Denies other symptoms or complaints. Anticipate OR 01/10/22. Objective Data Objective Data Vital Signs: Vital Signs Temp Pulse Resp BP Pulse Ox 97.8 F 74 18 132/70 H 95 01/09/22 08:00 01/09/22 08:00 01/09/22 08:00 01/09/22 08:00 01/09/22 08:00 Oxygen Delivery Method Room Air Weight: 214 lb 15.211 oz Body Mass Index (BMI) 28.5 Intake & Output: Intake and Output for Last 24 Hours 01/07/22 01/08/22 01/09/22 23:59 23:59 23:59 Intake Total 200 / 200 1000 / 1000 Output Total 575 / 575 400 / 400 Balance -375 / -375 600 / 600 Lab / Micro Data Result Diagrams: 01/09/22 05:55 01/09/22 05:55 Labs: Laboratory Results - last 24 hr 01/08/22 13:35: WBC 11.3 H, RBC 4.21 L, Hgb 13.6, Hct 38.8 L, MCV 92.2, MCH 32.3 H, MCHC 35.1, RDW Std Deviation 47.9 H, RDW Coeff of Tess 14.4, Plt Count 218, MPV 9.2, Immature Gran % (Auto) 0.800, Neut % (Auto) 79.1 H, Lymph % (Auto) 11.2 L, [place] % (Auto) 7.6, Eos % (Auto) 0.9, Baso % (Auto) 0.4, Absolute Neuts (auto) 8.9 H, Absolute Lymphs (auto) 1.26, Nucleated RBC % 0 01/08/22 13:35: PT 14.3, INR 1.2, APTT 26.1 01/08/22 13:35: Sodium 141, Potassium 3.8, Chloride 110 H, Carbon Dioxide 26.0, Anion Gap 5, BUN 17, Creatinine 1.19, Estim Creat Clear Calc 64.30, Est GFR (MDRD) Af Amer 78, Est GFR (MDRD) Non-Af 64, BUN/Creatinine Ratio 14.3, Glucose 123 H, Calcium 8.8 01/08/22 13:35: Sodium Cancelled, Potassium Cancelled, Chloride Cancelled, Carbon Dioxide Cancelled, Anion Gap Cancelled, BUN Cancelled, Creatinine Cancelled, Est GFR (MDRD) Af Amer Cancelled, Est GFR (MDRD) Non-Af Cancelled, BUN/Creatinine Ratio Cancelled, Glucose Cancelled, Calcium Cancelled, Total Bilirubin 0.40, Direct Bilirubin 0.11, AST 37, ALT 49, Alkaline Phosphatase 66, Total Protein 6.8, Albumin 3.2, Globulin 3.6, Albumin/Globulin Ratio Cancelled 01/09/22 05:55: WBC 6.5, RBC 3.91 L, Hgb 12.1 L, Hct 35.6 L, MCV 91.0, MCH 30.9, MCHC 34.0, RDW Std Deviation 48.5 H, RDW Coeff of Tess 14.6, Plt Count 206, MPV 9.1, Immature Gran % (Auto) 0.600, Neut % (Auto) 57.7, Lymph % (Auto) 27.0, [place] % (Auto) 11.6 H, Eos % (Auto) 2.6, Baso % (Auto) 0.5, Absolute Neuts (auto) 3.7, Absolute Lymphs (auto) 1.74, Nucleated RBC % 0 01/09/22 05:55: Sodium 135 L, Potassium 3.8, Chloride 106, Carbon Dioxide 25.0, Anion Gap 4 L, BUN 14, Creatinine 1.07, Estim Creat Clear Calc 71.52, Est GFR (MDRD) Af Amer 88, Est GFR (MDRD) Non-Af 73, BUN/Creatinine Ratio 13.1, Glucose 104, Calcium 8.3 L, Total Bilirubin 0.90, AST 27, ALT 40, Alkaline Phosphatase 64, Total Protein 6.4, Albumin 2.9 L, Globulin 3.5, Albumin/Globulin Ratio 0.8 L Micro: Microbiology 01/08/22 14:10 Nasal Secretion SARS-CoV-2 Antigen (Rapid) - Final Radiography Diagnostic Testing: Radiology Impression Chest X-Ray 01/08/22 14:05 IMPRESSION: Stable elevation of the right hemidiaphragm with mild pleural parenchymal changes at the right lung base. Electronically Signed: Fer Hollingsworth MD at 14:33 EST , Tibia/Fibula X-Ray 01/08/22 14:05 IMPRESSION: Nondisplaced spiral fracture of the proximal neck of the fibula as well as a spiral fracture of the distal diaphysis of the tibia. Soft tissue swelling. Electronically Signed: Fer Hollingsworth MD at 14:35 EST , Physical Exam Const alert, oriented x3 and no apparent distress Orientation / Consciousness: awake, oriented to person, oriented to place and oriented to time HEENT normocephalic and moist oral mucous membranes Eyes PERRL, EOMs intact bilaterally and conjunctivae normal Neck no lymphadenopathy Resp normal respiratory effort and clear to auscultation bilaterally Cardio regular rate, regular rhythm and no murmurs Peripheral Pulses: pulses 2+ throughout GI normal to inspection, nondistended, normoactive bowel sounds, non-tender and non-distended Extremity normal to inspection Extremity Narrative: Left lower extremity in cast Skin no rashes or lesions noted Lesions: no lesions Rashes: no rashes Trauma: no lacerations or abrasions Neuro CN's II-XII intact bilaterally, no focal motor deficits, no sensory deficits noted and deep tendon reflexes 2+ bilaterally Psych mental status grossly normal and affect normal Assessment & Plan Assessment/Plan (1) Spiral fracture of shaft of fibula: QUALIFIERS: Encounter type: initial encounter Fracture alignment: nondisplaced Fracture type: closed Laterality: left Qualified Code(s): S82.445A - Nondisplaced spiral fracture of shaft of left fibula, initial encounter for closed fracture (2) Spiral fracture of shaft of tibia: QUALIFIERS: Encounter type: initial encounter Fracture alignment: nondisplaced Fracture type: closed Laterality: left Qualified Code(s): S82.245A - Nondisplaced spiral fracture of shaft of left tibia, initial encounter for closed fracture PLAN: 1. Acute traumatic left tib-fib spiral fracture secondary to mechanical fall-orthopedic medicine on consult. Surgical risk calculator completed on admission, cleared for OR. EKG unremarkable. Eliquis on hold. PT/OT. As needed pain regimen. 2. Elevated blood pressure without history of hypertension-suspect secondary to acute pain on admission. Improved. Continue to monitor. 3. History of VTE with factor VIII deficiency-chronically on Eliquis. Held prior to the OR. Follows with Dr. Kruse. 4. History of pancreatic cancer with metastasis-status post Whipple and partial lobectomy. Considered in remission. DVT prophylaxis-resume Eliquis when okay per ortho This patient was seen by RUDY Hernández under the supervision of Dr. Babin. Time spent examining patient, reviewing data and subsequent management of care: 12 Minutes Documented by User: Dr. Boone Babin MD 01/09/22 12:25 Subjective Subjective Seen and examined. Follow-up for left tibia-fibula fracture or multiple comorbidities. Patient has history of pulmonary embolism with factor VIII deficiency, history of pancreatic cancer status post Whipple surgery with later on metastasis of lung with metastectomy of right upper lobectomy about a year ago. Objective Data Lab / Micro Data Result Diagrams: 01/09/22 05:55 01/09/22 05:55 Physical Exam Narrative Patient complain of pain 5-7/10 intensity over left leg. 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 General: Alert, Oriented x3, Cooperative HEENT: Atraumatic, PERRLA, EOMI, Normocephalic Oral: No Gingival or Mucosal Lesions/ Ulcerations Neck: Supple, No JVD, Negative Carotid Bruits Lungs: Air entry diminished in right lung base. Right hemidiaphragm elevation. No crepitation/rhonchi Cardiovascular: Regular rate, Regular Rhythm, Normal S1, Normal S2, No murmurs Abdomen: Bowel Sounds Present, Soft, Non Tender, Non-Distended : No renal angle tenderness. No suprapubic tenderness. Extremities: Mild edema of left foot, reactive from fracture Capillary Refill Less than 3 Seconds Skin: No rashes, No breakdown Musculoskeletal: Left leg in Shayne wrap bandage. Tenderness present. Neurological: Cranial nerves II-XII grossly intact, DTR 2+/4 and Symmetrical, Neuro grossly intact Psych/Mental Status: Normal Affect, Appropriate. Assessment & Plan Assessment/Plan (1) Spiral fracture of shaft of fibula: QUALIFIERS: Encounter type: initial encounter Fracture alignment: nondisplaced Fracture type: closed Laterality: left Qualified Code(s): S82.445A - Nondisplaced spiral fracture of shaft of left fibula, initial encounter for closed fracture (2) Spiral fracture of shaft of tibia: QUALIFIERS: Encounter type: initial encounter Fracture alignment: nondisplaced Fracture type: closed Laterality: left Qualified Code(s): S82.245A - Nondisplaced spiral fracture of shaft of left tibia, initial encounter for closed fracture PLAN: This patient was seen in conjunction with ART[employer]IAL [employer]B FITTER, Anita. I have independently interviewed and examined the patient and reviewed pertinent history, examination findings, laboratory and plan of management. I have reviewed the note and agree with the documented findings with the few additional points. In brief, patient is 71-year-old gentleman admitted after fall resulting into acute traumatic left tibia-fibula spiral fracture, nondisplaced. Patient has moderate to severe pain. Plan for surgery tomorrow afternoon as patient is on apixaban therefore needs 48 hours to washout the medication. Perioperative surgical risks, NSQIP below average though patient evaluated potential compartment syndrome based on the anatomy of the fracture. Twelve-lead EKG shows no acute evidence of ischemia. Patient has good functional status, more than 4 MET before fall. Chest x-ray shows chronic right hemidiaphragm elevation. Patient had history of CA pancreas diagnosed in 2011 and had Whipple surgery. After that last year he had lung metastasis for which she had right upper lobectomy in January 2021. Since then patient is in remission. Patient also has pulmonary embolism with factor VIII deficiency: On apixaban which is on hold. Follows Dr. Kruse Total time of the visit includes total time spent in counseling or coordination of care, (more than 50% of the total time, spent in obtaining medical information from nurses and other ancillary care providers,explaining to the patient about labs, imaging, diagnosis and management), discussion with cruise consultant, review of labs and imaging is 30 minutes; I spent 18 minutes, more than half time and ART[employer] FITTER spent 12 minutes I have discussed my assessment with ARTIFICIAL LIMB FITTERAnita and orders have been reviewed. Charges/Coding Visit Charges Inpatient E&M: 18386 Subs Hosp L2
--- NOTE | 2022-01-09 11:42 | PCM.CONS.GEN ---
Assessment & Plan Assessment/Plan (1) Spiral fracture of shaft of tibia: QUALIFIERS: Encounter type: initial encounter Fracture type: closed Fracture alignment: nondisplaced Laterality: left Qualified Code(s): S82.245A - Nondisplaced spiral fracture of shaft of left tibia, initial encounter for closed fracture PLAN: Discussed and reviewed treatment options at length with the patient his and daughter including surgical and nonsurgical treatment options at this time they do wish to proceed with closed reduction intramedullary nailing of left tibia shaft fracture. Case and findings were discussed and reviewed at length with Dr. Ashish Alonso. I communicated the findings of fracture blisters near the level of the distal fracture/surgical site. Risks associated with perioperative infection were discussed and reviewed at length. Dr. Ashish Alonso is going to communicate the images of the fracture blisters with his partners to discuss the risk benefits and complications of proceeding with intramedullary nailing versus other intervention. Potential risk benefits and complications of surgical procedure were reviewed at length including but not limited to infection nerve and blood vessel damage persistent pain numbness tingling paresthesias blood clot pulmonary ligament requirement for possible further surgery they voiced understanding signed appropriate consent form and agreed to proceed with the above-stated procedure. All of their questions were answered. We will anticipate for surgical intervention tomorrow afternoon unless we delay due to fracture blistering. Risks associated with COVID-19 pandemic were discussed and reviewed at length with patient and his discussing indications for vaccination and boosters. Discussed the strategies to avoid exposure to the COVID-19 virus while inpatient including minimizing hospital stay. They voiced understanding. (2) Spiral fracture of shaft of fibula: QUALIFIERS: Encounter type: initial encounter Fracture type: closed Fracture alignment: nondisplaced Laterality: left Qualified Code(s): S82.445A - Nondisplaced spiral fracture of shaft of left fibula, initial encounter for closed fracture HPI Consult Data Date of Consult: 01/09/22 HPI Narrative HPI Narrative: CHELA HERRERA, is a 71 M Presented to [facility] yesterday January 08, 2022 after slipping on ice and injuring his left lower leg. The leg was normal and pain-free prior to the injury. He did not hit his head or lose consciousness. He felt his tibia snap. He was taken to [facility] emergency department. X-rays revealed distal tibia shaft fracture proximal fibula fracture. He was placed in splints he was admitted to the third floor at [facility] and orthopedics was consulted.His past history is complicated by the use of Eliquis due to history of pulmonary embolism. He has had pancreatic cancer in the past that was eliminated with Whipple procedure and chemotherapy. 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 Last year he also was diagnosed with lung cancer had a lobectomy and has been cancer free ever since. He denies any knee hip or ankle pain at this time. The pain medicines are helping his pain. No new numbness or tingling into his toes. No fevers chills or other signs of infection. [facility] Medical History (Updated 01/08/22 @ 15:[address] Caro Shelley MD) Factor VIII deficiency History of pancreatic cancer Hx of cancer of lung Hx of pulmonary embolus Home Medications apixaban [Eliquis] 5 mg PO BID 01/08/22 [History Last Taken 01/08/22] ascorbic acid (vitamin C) 500 mg PO DAILY 01/08/22 [History Last Taken 01/08/22] cholecalciferol (vitamin D3) 125 mcg PO DAILY 01/08/22 [History Last Taken 01/08/22] fajsjq-dicwulrn-strbmhq [Creon] 1 cap PO BID 01/08/22 [History Last Taken Unknown] rye grass extract-quercetin 1 tab PO DAILY 01/08/22 [History Last Taken 01/08/22] zinc 25 mg PO DAILY 01/08/22 [History Last Taken 01/08/22] Allergy/AdvReac Type Severity Reaction Status Date / Time No Known Allergies Allergy Verified 01/08/22 12:56 Family History (Updated 01/08/22 @ 15:[address] Caro Shelley MD) Father Myocardial infarction age 54 from sudden [place]. Heart disease Hypertension Sister Cancer Sister with breast CA. Brother Cancer Brother with prostate CA and another Brother x 1 with Skin CA. Family History other Surgical History (Updated 01/08/22 @ 15:[address] Caro Shelley MD) History of lobectomy of lung History of Whipple procedure Social History (Updated 01/08/22 @ 15:[address] Caro Shelley MD) household members: spouse Smoking Status: Former smoker how long ago did patient quit smoking: Smoked 2-3 years late teens to early 20s, 1/2 ppd until quit. alcohol intake: current alcohol intake frequency: a few times a week substance use type: does not use ROS ROS Narrative Review of systems were discussed and reviewed at length with the patient and his all pertinent positives and negatives are documented in the electronic medical record Physical Exam Narrative Inspection of left hip without deformity. Left hip without tenderness gentle range of motion left hip without pain or restriction. Inspection of left knee is without deformity. Left knee without tenderness. Gentle mobility of left knee with leg in splint without pain. Inspection of left lower leg is with intact large medial lateral ankle fracture blisters without erythema warmth or signs of infection. No calf pain or tenderness on the left. Left ankle without deformity or tenderness. Inspection of left foot without deformity. Gentle passive flexion extension of the left ankle and toes are without significant increased pain. Sensation intact to light touch pedal pulses present and equal bilaterally. Capillary refill less than 3 seconds neurovascularly intact without evidence signs or symptoms of compartment syndrome Tib-fib x-rays on the left from [facility] January 08, 2022 discussed and reviewed at length with the patient his and daughter. They are consistent with spiral displaced fracture of the distal tibia shaft with apex anterior angular deformity of the tibia shaft fracture. There is oblique spiral fracture minimally displaced of the proximal aspect of the fibular neck Lab / Micro Data Result Diagrams: 01/09/22 05:55 01/09/22 05:55 Labs: Laboratory Results - last 24 hr 01/08/22 13:35: WBC 11.3 H, RBC 4.21 L, Hgb 13.6, Hct 38.8 L, MCV 92.2, MCH 32.3 H, MCHC 35.1, RDW Std Deviation 47.9 H, RDW Coeff of Tess 14.4, Plt Count 218, MPV 9.2, Immature Gran % (Auto) 0.800, Neut % (Auto) 79.1 H, Lymph % (Auto) 11.2 L, Hitchcock % (Auto) 7.6, Eos % (Auto) 0.9, Baso % (Auto) 0.4, Absolute Neuts (auto) 8.9 H, Absolute Lymphs (auto) 1.26, Nucleated RBC % 0 01/08/22 13:35: PT 14.3, INR 1.2, APTT 26.1 01/08/22 13:35: Sodium 141, Potassium 3.8, Chloride 110 H, Carbon Dioxide 26.0, Anion Gap 5, BUN 17, Creatinine 1.19, Estim Creat Clear Calc 64.30, Est GFR (MDRD) Af Amer 78, Est GFR (MDRD) Non-Af 64, BUN/Creatinine Ratio 14.3, Glucose 123 H, Calcium 8.8 01/08/22 13:35: Sodium Cancelled, Potassium Cancelled, Chloride Cancelled, Carbon Dioxide Cancelled, Anion Gap Cancelled, BUN Cancelled, Creatinine Cancelled, Est GFR (MDRD) Af Amer Cancelled, Est GFR (MDRD) Non-Af Cancelled, BUN/Creatinine Ratio Cancelled, Glucose Cancelled, Calcium Cancelled, Total Bilirubin 0.40, Direct Bilirubin 0.11, AST 37, ALT 49, Alkaline Phosphatase 66, Total Protein 6.8, Albumin 3.2, Globulin 3.6, Albumin/Globulin Ratio Cancelled 01/09/22 05:55: WBC 6.5, RBC 3.91 L, Hgb 12.1 L, Hct 35.6 L, MCV 91.0, MCH 30.9, MCHC 34.0, RDW Std Deviation 48.5 H, RDW Coeff of Tess 14.6, Plt Count 206, MPV 9.1, Immature Gran % (Auto) 0.600, Neut % (Auto) 57.7, Lymph % (Auto) 27.0, Hitchcock % (Auto) 11.6 H, Eos % (Auto) 2.6, Baso % (Auto) 0.5, Absolute Neuts (auto) 3.7, Absolute Lymphs (auto) 1.74, Nucleated RBC % 0 01/09/22 05:55: Sodium 135 L, Potassium 3.8, Chloride 106, Carbon Dioxide 25.0, Anion Gap 4 L, BUN 14, Creatinine 1.07, Estim Creat Clear Calc 71.52, Est GFR (MDRD) Af Amer 88, Est GFR (MDRD) Non-Af 73, BUN/Creatinine Ratio 13.1, Glucose 104, Calcium 8.3 L, Total Bilirubin 0.90, AST 27, ALT 40, Alkaline Phosphatase 64, Total Protein 6.4, Albumin 2.9 L, Globulin 3.5, Albumin/Globulin Ratio 0.8 L Micro: Microbiology 01/08/22 14:10 Nasal Secretion SARS-CoV-2 Antigen (Rapid) - Final Radiology Impression Chest X-Ray 01/08/22 14:05 IMPRESSION: Stable elevation of the right hemidiaphragm with mild pleural parenchymal changes at the right lung base. Electronically Signed: Fer Hollingsworth MD at 14:33 EST , Tibia/Fibula X-Ray 01/08/22 14:05 IMPRESSION: Nondisplaced spiral fracture of the proximal neck of the fibula as well as a spiral fracture of the distal diaphysis of the tibia. Soft tissue swelling. Electronically Signed: Fer Hollingsworth MD at 14:35 EST ,
--- NOTE | 2022-01-09 14:42 | CHAPLAIN ---
Type of Pastoral Visit _x__ Initial Visit ___ Follow-up Visit ___ On-call Visit ___ General Patient Visit ___ Spiritual Assessment ___ Family Conference ___ Bereavement ___ Rapid Response ___ Code Blue ___ Other (describe below) Pastoral Care Referral From _x__ Patient ___ Family ___ Nurse ___ Physician ___ Fountain Worker ___ Clinical Support Tech ___ Other (describe below) Sacrament/Intervention _x__ Active listening ___ Anointing ___ Quaker ___ Bereavement ___ Communion _x__ Rosalba exploration ___ _x__ Life review _x__ Prayer ___ Reconciliation ___ Sacrament of Sick _x__ Supportive presence ___ Wedding ___ Other (describe below) Pastoral Comments patient learned he will be discharged due to postponing surgery; pt describes his feelings about situation, his past history with several major health crises; pt and spouse both speak of their positive outlook due to rosalba in God and good support; pt welcomes presence and prayer for spiritual care support
[2022-01-09 14:45] VITALS: BP 140/76; PULSE 83; RESP 16; TEMP 36.9; O2SAT 97
--- NOTE | 2022-01-09 14:56 | PCM.DC ---
Discharge Instructions Diet Discharge Diet: No restrictions Activity Discharge Activity: Return to Normal Activity Weight Bearing Status: No weight bearing (left lower extremity) Dressing / Incision Call your doctor if you observe: Shortness of breath, Dizziness and Chest pain Follow Up Care Test Results: Test results from this visit will be discussed in further detail at your follow-up appointment, if applicable. Discharge Plan Admission Admit Date/Time: 01/08/22 15:22 Primary Reason for Your Visit: left tib-fib spiral fracture Attending Provider: Boone Babin Primary Care Provider: Patel Messer Consulting Providers: Ashish Alonso Instructions Additional Instructions / Restrictions: If you develop increased left lower extremity pain or swelling, you will need to return to the emergency room immediately. Nonweightbearing left lower extremity. Plan for surgery with Dr. Alonso 01/24/2022. Continue Eliquis with stop date January 21 prior to surgery. Discharge Orders/Prescriptions Prescriptions: Continued ascorbic acid (vitamin C) 500 mg Tablet 500 mg PO DAILY RF: 0 zinc 25 mg Tablet 25 mg PO DAILY RF: 0 cholecalciferol (vitamin D3) 125 mcg (5,000 unit) Capsule 125 mcg PO DAILY RF: 0 Eliquis 5 mg tablet 5 mg PO BID RF: 0 rye grass extract-quercetin 500-250 mg Tablet 1 tab PO DAILY RF: 0 Creon 12,000-38,000 -60,000 unit Capsule,Delayed Release(Dr/Ec) 1 cap PO BID RF: 0 Referrals / Follow Up: Patel Messer MD [Primary Care Provider] - In 1 Week Ashish Alonso MD [STAFF PHYSICIAN] - See Referral Note (Follow-up in office in 10 days. Plan for OR 01/21/22. ) Disposition Disposition (needs filled in before D/C Order can be placed): Home, Self Care
--- NOTE | 2022-01-09 15:06 | DS.PCM_ITS ---
Documented by User: Anita Narvaez JEWELRY ESTIMATOR, JEWELRY ESTIMATOR-C 01/09/22 15:14 Providers Date of Admission: 01/08/22 Date of Discharge: 01/09/22 Primary Care Physician: Dr. Patel Messer MD Consultations 01/08/22 16:51 Consult: Orthopedics Routine Consulting Provider: Ashish Alonso Reason for Consult: LLE tib-fib spiral fx EMERGENT Consult: No MD Notified: Yes Date Notified: 01/08/22 Time Notified: 15:27 Method of Notification: per ED. Reason For Visit: FALL, L TEB-B SPIRAL FX Diagnosis Discharge Diagnosis (1) Spiral fracture of shaft of fibula: Status: Acute Code(s): S82.443A - Displaced spiral fracture of shaft of unspecified fibula, initial encounter for closed fracture Qualifiers: Encounter type: initial encounter Fracture alignment: nondisplaced Fracture type: closed Laterality: left Qualified Code(s): S82.445A - Nondisplaced spiral fracture of shaft of left fibula, initial encounter for closed fracture (2) Spiral fracture of shaft of tibia: Status: Acute Code(s): S82.243A - Displaced spiral fracture of shaft of unspecified tibia, initial encounter for closed fracture Qualifiers: Encounter type: initial encounter Fracture alignment: nondisplaced Fracture type: closed Laterality: left Qualified Code(s): S82.245A - Nondisplaced spiral fracture of shaft of left tibia, initial encounter for cl osed fracture Medications at Discharge Home Medications Creon 1 cap PO BID 01/08/22 Eliquis 5 mg PO BID 01/08/22 ascorbic acid (vitamin C) 500 mg PO DAILY 01/08/22 cholecalciferol (vitamin D3) 125 mcg PO DAILY 01/08/22 rye grass extract-quercetin 1 tab PO DAILY 01/08/22 zinc 25 mg PO DAILY 01/08/22 acetaminophen [Tylenol] 650 mg PO Q4H PRN PRN #0 tab 01/09/22 oxycodone 5 mg PO Q4H PRN PRN 7 Days #15 tab 01/09/22 Hospital Course Operations None Procedures None Summary of Care Provided Hospital Course: Patient is a 71-year-old male admitted 01/08/22 due to fall with left lower extremity pain. 1. Acute traumatic left tib-fib spiral fracture secondary to mechanical fall- orthopedic medicine on consult. Surgical risk calculator completed on admission, cleared for OR. EKG unremarkable. Due to fracture blisters, plan for follow-up in the office in 10 days and scheduled surgery for 01/24/2022. Patient can resume Eliquis at discharge with stop date 01/21/2022 prior to surgery. Nonweightbearing left lower extremity. 2. Elevated blood pressure without history of hypertension-suspect secondary to acute pain on admission. Improved. Continue to monitor. 3. History of VTE with factor VIII deficiency-chronically on Eliquis. Follows with Dr. Kruse. 4. History of pancreatic cancer with metastasis-status post Whipple and partial lobectomy. Considered in remission. Physical Exam Const alert, oriented x3 and no apparent distress Orientation / Consciousness: awake, oriented to person, oriented to place and oriented to time HEENT normocephalic and moist oral mucous membranes Eyes PERRL, EOMs intact bilaterally and conjunctivae normal Neck no lymphadenopathy Resp normal respiratory effort and clear to auscultation bilaterally Cardio regular rate, regular rhythm and no murmurs Peripheral Pulses: pulses 2+ throughout GI normal to inspection, nondistended, normoactive bowel sounds, non-tender and non-distended Extremity normal to inspection Extremity Narrative: Left lower extremity in cast Skin no rashes or lesions noted Lesions: no lesions Rashes: no rashes Trauma: no lacerations or abrasions Neuro CN's II-XII intact bilaterally, no focal motor deficits, no sensory deficits noted and deep tendon reflexes 2+ bilaterally Psych mental status grossly normal and affect normal Patient seen and examined prior to discharge. Physical assessment as noted above. Patient is stable for discharge with follow up recommendations as noted above. This patient was seen by RUDY Hernández under the supervision of Dr. Babin. Time spent examining patient, reviewing data and subsequent management of care: 15 Minutes Weight / BMI Weight Weight: 214 lb 15.211 oz Body Mass Index (BMI) 28.5 ABG / Lab / Microbiology Data Result Diagrams: 01/09/22 05:55 01/09/22 05:55 Laboratory: Laboratory Results - last 24 hr 01/08/22 13:35: Sodium Cancelled, Potassium Cancelled, Chloride Cancelled, Carbon Dioxide Cancelled, Anion Gap Cancelled, BUN Cancelled, Creatinine Cancelled, Est GFR (MDRD) Af Amer Cancelled, Est GFR (MDRD) Non-Af Cancelled, BUN/Creatinine Ratio Cancelled, Glucose Cancelled, Calcium Cancelled, Total Bilirubin 0.40, Direct Bilirubin 0.11, AST 37, ALT 49, Alkaline Phosphatase 66, Total Protein 6.8, Albumin 3.2, Globulin 3.6, Albumin/Globulin Ratio Cancelled 01/09/22 05:55: WBC 6.5, RBC 3.91 L, Hgb 12.1 L, Hct 35.6 L, MCV 91.0, MCH 30.9, MCHC 34.0, RDW Std Deviation 48.5 H, RDW Coeff of Tess 14.6, Plt Count 206, MPV 9.1, Immature Gran % (Auto) 0.600, Neut % (Auto) 57.7, Lymph % (Auto) 27.0, Bibb % (Auto) 11.6 H, Eos % (Auto) 2.6, Baso % (Auto) 0.5, Absolute Neuts (auto) 3.7, Absolute Lymphs (auto) 1.74, Nucleated RBC % 0 01/09/22 05:55: Sodium 135 L, Potassium 3.8, Chloride 106, Carbon Dioxide 25.0, Anion Gap 4 L, BUN 14, Creatinine 1.07, Estim Creat Clear Calc 71.52, Est GFR (MDRD) Af Amer 88, Est GFR (MDRD) Non-Af 73, BUN/Creatinine Ratio 13.1, Glucose 104, Calcium 8.3 L, Total Bilirubin 0.90, AST 27, ALT 40, Alkaline Phosphatase 64, Total Protein 6.4, Albumin 2.9 L, Globulin 3.5, Albumin/Globulin Ratio 0.8 L Microbiology: Microbiology 01/08/22 14:10 Nasal Secretion SARS-CoV-2 Antigen (Rapid) - Final D/C Instructions Discharge Diet: No restrictions Weight Bearing Status: No weight bearing (left lower extremity) Call your doctor if you observe: Shortness of breath, Dizziness and Chest pain Meaningful Use Info Meaningful Use Diagnoses (Choose all that apply): None applicable Discharge Plan Admission Admit Date/Time: 01/08/22 15:22 Primary Reason for Your Visit: left tib-fib spiral fracture Attending Provider: Boone Babin Primary Care Provider: Patel Messer Consulting Providers: Ashish Alonso Instructions Additional Instructions / Restrictions: If you develop increased left lower extremity pain or swelling, you will need to return to the emergency room immediately. Nonweightbearing left lower extremity. Plan for surgery with Dr. Alonso 01/24/2022. Continue Eliquis with stop date January 21 prior to surgery. Discharge Orders/Prescriptions Prescriptions: New acetaminophen [Tylenol] 325 mg Tablet 650 mg PO Q4H PRN PRN (Reason: Fever, pain 1-10) Qty: 0 RF: 0 oxycodone 5 mg Tablet 5 mg PO Q4H PRN PRN (Reason: Pain Score 6-10) 7 Days Qty: 15 RF: 0 Continued ascorbic acid (vitamin C) 500 mg Tablet 500 mg PO DAILY RF: 0 zinc 25 mg Tablet 25 mg PO DAILY RF: 0 cholecalciferol (vitamin D3) 125 mcg (5,000 unit) Capsule 125 mcg PO DAILY RF: 0 Eliquis 5 mg tablet 5 mg PO BID RF: 0 rye grass extract-quercetin 500-250 mg Tablet 1 tab PO DAILY RF: 0 Creon 12,000-38,000 -60,000 unit Capsule,Delayed Release(Dr/Ec) 1 cap PO BID RF: 0 Referrals / Follow Up: Patel Messer MD [Primary Care Provider] - In 1 Week Ashish Alonso MD [STAFF PHYSICIAN] - See Referral Note (Follow-up in office in 10 days. Plan for OR 01/21/22. ) Disposition Disposition (needs filled in before D/C Order can be placed): Home, Self Care Documented by User: Dr. Boone Babin MD 01/09/22 16:17 Providers Date of Admission: 01/08/22 Reason For Visit: FALL, L TEB-FEB SPIRAL FX Medications at Discharge Home Medications Creon 1 cap PO BID 01/08/22 Eliquis 5 mg PO BID 01/08/22 ascorbic acid (vitamin C) 500 mg PO DAILY 01/08/22 cholecalciferol (vitamin D3) 125 mcg PO DAILY 01/08/22 rye grass extract-quercetin 1 tab PO DAILY 01/08/22 zinc 25 mg PO DAILY 01/08/22 acetaminophen [Tylenol] 650 mg PO Q4H PRN PRN #0 tab 01/09/22 oxycodone 5 mg PO Q4H PRN PRN 7 Days #15 tab 01/09/22 Hospital Course Summary of Care Provided Hospital Course: This patient was seen in conjunction with Anita GIORDANO. I have independently interviewed and examined the patient and reviewed pertinent history, examination findings, laboratory and plan of management. I have reviewed the note and agree with the documented findings with the few additional points. In brief, patient is 71-year-old gentleman admitted after fall resulting into acute traumatic left tibia-fibula spiral fracture, nondisplaced. Patient has moderate to severe pain. Plan for surgery tomorrow afternoon as patient is on apixaban therefore needs 48 hours to washout the medication. Perioperative surgical risks, NSQIP below average though patient evaluated potential compartment syndrome based on the anatomy of the fracture. Twelve-lead EKG shows no acute evidence of ischemia. Patient has good functional status, more than 4 MET before fall. Patient was found some blisters in leg in the OR therefore surgery was canceled. Ortho surgeon recommended discharge and follow-up in the office in 10 days. Possible surgery scheduled on January 24. Eliquis resumed Chest x-ray shows chronic right hemidiaphragm elevation. Patient had history of CA pancreas diagnosed in 2011 and had Whipple surgery. After that last year he had lung metastasis for which she had right upper lobectomy in January 2021. Since then patient is in remission. Patient also has pulmonary embolism with factor VIII deficiency: On apixaban which is on hold. Follows Dr. Kruse I have discussed my assessment with Anita GIORDANO and orders have been reviewed. Discharge medication reconciliation done. Discharge follow-up instructions completed. Discharge process discussed with the patient and all questions were answered to patient's satisfaction. Carlo resumed and advised to stop on January 21 in preparation for surgery scheduled on January 24, 2022 Total time spent, exact 35 minutes on discharge meds reconciliation, examination, coordination of care with nurses and ancillary staff, review of imaging and blood test and discussion with the patient on follow-up instructions Physical Exam Narrative Please see the progress note of the same date. Physical findings admission progress note of the same date 01/09/2022. ABG / Lab / Microbiology Data Result Diagrams: 01/09/22 05:55 01/09/22 05:55 Discharge Plan Admission Admit Date/Time: 01/08/22 15:22 Primary Reason for Your Visit: left tib-fib spiral fracture Attending Provider: Boone Babin Primary Care Provider: Patel Messer Consulting Providers: Ashish Alonso Instructions Additional Instructions / Restrictions: If you develop increased left lower extremity pain or swelling, you will need to return to the emergency room immediately. Nonweightbearing left lower extremity. Plan for surgery with Dr. Alonso 01/24/2022. Continue Eliquis with stop date January 21 prior to surgery. Discharge Orders/Prescriptions Prescriptions: New acetaminophen [Tylenol] 325 mg Tablet 650 mg PO Q4H PRN PRN (Reason: Fever, pain 1-10) Qty: 0 RF: 0 oxycodone 5 mg Tablet 5 mg PO Q4H PRN PRN (Reason: Pain Score 6-10) 7 Days Qty: 15 RF: 0 Continued ascorbic acid (vitamin C) 500 mg Tablet 500 mg PO DAILY RF: 0 zinc 25 mg Tablet 25 mg PO DAILY RF: 0 cholecalciferol (vitamin D3) 125 mcg (5,000 unit) Capsule 125 mcg PO DAILY RF: 0 Eliquis 5 mg tablet 5 mg PO BID RF: 0 rye grass extract-quercetin 500-250 mg Tablet 1 tab PO DAILY RF: 0 Creon 12,000-38,000 -60,000 unit Capsule,Delayed Release(Dr/Ec) 1 cap PO BID RF: 0 Referrals / Follow Up: Patel Messer MD [Primary Care Provider] - In 1 Week Ashish Alonso MD [STAFF PHYSICIAN] - See Referral Note (Follow-up in office in 10 days. Plan for OR 01/21/22. ) Disposition Disposition (needs filled in before D/C Order can be placed): Home, Self Care Charges/Coding Addendum Addendum: Please cancel the billing charge of the progress note on the same date. Visit Charges Inpatient E&M: 79376 Disch Hosp Multi Select Codes Visit Charges Visit Charges: 37285 Disch Hosp
--- NOTE | 2022-01-09 15:46 | CASEMGMT ---
CAMERON CM in to pt room, pt sitting up in chair. Pt states he feels good about going home. States therapy came in and instructed him on the walker and he will use his at home. Pt has assistance at home. Denies any further needs.
[2022-01-09 17:00] VITALS: BP 136/74; PULSE 83; RESP 16; TEMP 37.2; O2SAT 98
== END 2022-01-09 17:21 | disposition home or self-care (01) | DRG 563 ==
LOC: ED 13:50 → MS3 15:39
PROVIDERS: Admitting Provider Family Medicine; Emergency Provider Emergency Medicine; PCP Family Medicine; Visit Provider Internal Medicine
DX: S82.245A Nondisplaced spiral fracture of shaft of left tibia, initial encounter for closed fracture (principal); D68.0 Von Willebrand disease; S82.445A Nondisplaced spiral fracture of shaft of left fibula, initial encounter for closed fracture; G62.9 Polyneuropathy, unspecified; W00.9XXA Unspecified fall due to ice and snow, initial encounter; R03.0 Elevated blood-pressure reading, without diagnosis of hypertension; Z79.01 Long term (current) use of anticoagulants; Z87.891 Personal history of nicotine dependence; Z90.2 Acquired absence of lung [part of]; Z85.118 Personal history of other malignant neoplasm of bronchus and lung; Z86.711 Personal history of pulmonary embolism; Z79.899 Other long term (current) drug therapy; Y93.89 Activity, other specified; Y99.9 Unspecified external cause status; Y92.89 Other specified places as the place of occurrence of the external cause
CPT/HCPCS: 71045; 73590; 80048; 80053; 80076; 85025; 85610; 85730; 87426; 93005; 97166; 99285; J7030; J2405

== ENCOUNTER 2022-01-24 05:48 | Day surgery (SDC) | payer OTHER, SELFPAY ==
[2022-01-24] VITALS (10 sets, daily range): BP systolic 133–185; BP diastolic 73–97; PULSE 79–87; RESP 16–20; TEMP 36.1–37.2; O2SAT 93–100; BMI 28.5
[2022-01-24] MEDS: Lactated Ringers 1,000 ML 15 ML IV ×2 (06:32→08:45)
[2022-01-24] MEDS: Cefazolin 2 GM in 0.9% Normal Saline 100 ML IV (07:36)
--- NOTE | 2022-01-24 07:36 | RAD_ITS ---
STUDY: X-RAY - LEFT TIBIA AND FIBULA REASON FOR EXAM: Male, 71 years old. Intraoperative digital documentation views of the intramedullary nail placement. TECHNIQUE: 11 intraoperative digital documentation view(s) of the tibia and fibula were obtained. COMPARISON: None. FINDINGS: 11 intraoperative digital documentation views show placement of intramedullary justine within the tibia with interlocking proximal and distal screws. RAD/Tibia & Fibula 2 Views IMPRESSION: Intraoperative digital documentation views as described. Electronically Signed: Richie Garcia MD at 9:55 EST ,
--- NOTE | 2022-01-24 09:46 | OP.PCM_ITS ---
Operative Report Date of Procedure: 01/24/22 Preoperative diagnosis: Left tibia and fibula fracture, displaced, Postoperative diagnosis: same Title of operation: Reamed locked intramedullary left tibial nailing Surgeon: Ashish Alonso Director Of Physiotherapy Services: Luci Golden PA-C Anesthesia: General Medications: Ancef 2 gm Indications for surgery please refer to dictated consult note Indications for surgical coordinator: accounting administrative assistant was utilized throughout the entire procedure. They helped with patient positioning holding of the limb and holding of retractors. Helped with exposure throughout. They were vital in fracture reduction, maintenance of reduction with placement of guide eduardo, reaming, placement of intramedullary nail. They were also vital with placement of cross locking screws and maintaining limb alignment for such procedure. They were vital with wound closure, bandage, and splint application, and patient transfer. Without surgical technology instructor, surgical time would have been increased and surgical outcome could have been less optimal. Patient was taken to the OR and transferred to the OR table. General anesthetic was given. Appropriate timeouts performed. Ancef given. Nonoperative lower extremity had a STEVE hose and SCD on throughout. Operative lower extremity was prepped padded and draped in usual orthopedic sterile fashion for the procedure with the help of a physician advertising sales assistant. Incision was mapped out over the medial knee. Careful dissection brought us down medial to the patellar tendon. We dissected under the patellar tendon. Guidepin was placed centrally anteriorly. Position verified radiographically. We reamed the anterior cortex over that. We placed a slightly bent ball-tipped guide eduardo through that hole into the medullary canal of the tibia and while the physician advertising sales assistant held the fracture reduced. This was placed into the distal fracture fragment just above the ankle joint and verified with radiographs. We then reamed with a small reamer reaming up to a size {11.5}. Size {10} mm appropriately length nail 360 mm was placed over the guide eduardo while the advertising sales assistant held the fracture reduced and limb in appropriate alignment. Guide eduardo removed. Fracture reduced nicely and was impacted by the advertising sales assistant. Cross lock screws placed proximal medial under d ynamic mode. 2 distal cross locking screws placed with the help of the advertising sales assistant from medial to lateral. 1 cross locking screw was placed from anterior to medial. These were 5 mm diameter screws. X-rays taken throughout. Wounds thoroughly irrigated. Eduardo entry site closure in layers. Skin anoop utilized. Stab incisions for cross locking screws repaired with 3-0 nylon sutures. Xeroform 4 x 4's ABD and splint applied by the advertising sales assistant. Patient awoken from anesthetic and transferred to room bed in recovery room in satisfactory condition. Ancef 2 g IV was given preoperatively. We will use Eliquis 2.5 mg twice a day for DVT prevention. After several days he will resume his 5 mg twice a day dose. This note was generated with [employer] dictation software. It may contain incorrect words, spelling, and punctuation that were not noted in checking the note before signing.
[2022-01-24] MEDS: Acetaminophen 500 MG Tablet 1000 MG PO (12:55)
[2022-01-24] MEDS: oxyCODONE 5 MG Tablet PO (12:56)
[2022-01-24] MEDS: Cefazolin 1 GM/50 ML BAG IV (13:41)
== END 2022-01-24 23:59 | disposition home or self-care (01) ==
LOC: SDC 05:49 → AC 05:49
PROVIDERS: PCP Family Medicine; Referring Provider Orthopaedic Surgery; Visit Provider Orthopaedic Surgery
PROC: (CPT 27759; principal; 2022-01-24 07:10)
DX: S82.242A Displaced spiral fracture of shaft of left tibia, initial encounter for closed fracture (principal); D66 Hereditary factor VIII deficiency; X58.XXXA Exposure to other specified factors, initial encounter; Y93.9 Activity, unspecified; Y99.9 Unspecified external cause status; S82.442A Displaced spiral fracture of shaft of left fibula, initial encounter for closed fracture; Y92.9 Unspecified place or not applicable; Z86.711 Personal history of pulmonary embolism; Z87.891 Personal history of nicotine dependence; Z79.899 Other long term (current) drug therapy; Z79.01 Long term (current) use of anticoagulants; Z85.07 Personal history of malignant neoplasm of pancreas; Z85.118 Personal history of other malignant neoplasm of bronchus and lung
CPT/HCPCS: 27759; 73590; 76000; C1713; J7120; J2405

== ENCOUNTER → 2025-01-02 | Outpatient (CLI) | payer MEDICARE, SELFPAY ==
[2025-01-02 12:36] LABS: Cholesterol 145 mg/dL (200); PSA,Total - Annual Screen 3.65 ng/mL (0.00-4.00)
== END | disposition home or self-care (01) ==
LOC: MFPLAB 10:03
PROVIDERS: PCP Family Medicine; Referring Provider Family Medicine; Visit Provider Family Medicine
DX: L40.50 Arthropathic psoriasis, unspecified (principal); Z12.5 Encounter for screening for malignant neoplasm of prostate
CPT/HCPCS: 36415; 82465; 84153; G0103

== ENCOUNTER 2025-10-27 10:19 | Observation (INO) | payer MEDICARE, SELFPAY ==
[2025-10-27] VITALS (14 sets, daily range): BP systolic 141–161; BP diastolic 67–93; PULSE 66–81; RESP 14–18; TEMP 36.4–37.5; O2SAT 93–99; BMI 27.5; BMI 27.1
--- NOTE | 2025-10-27 10:42 | CT_ITS ---
PROCEDURE: ABDOMEN/PELVIS WITHOUT CONT 10/27/2025 REASON FOR EXAM: PAIN One-week history of right flank pain. Hematuria. History of kidney stones. History of lung cancer and lobectomy. Prior Whipple procedure for pancreatic cancer. TECHNIQUE: Procedure Code: CTABDPEL Modality: CT Procedure: ABDOMEN/PELVIS WITHOUT CONT Noncontrast technique limits evaluation of the abdominal and pelvic viscera. Coronal and Sagittal reconstruction series were provided. One or more dose reduction techniques were used (e.g., Automated exposure control, adjustment of the mA and/or kV according to patient size, use of iterative reconstruction technique). RADIATION DOSE SUMMARY: CTDlvol: 9.77 mGy DLP: 542.01 mGycm COMPARISON: None FINDINGS: Lung bases: Increased linear markings in the lateral aspect of the right lower lobe with the focal pleural thickening. Liver: Pneumobilia. This is in keeping with prior Whipple procedure. Gallbladder: Not visualized. Spleen: Normal size. Pancreas: The head and body portions of the pancreas are not visualized most likely surgically removed. Calcifications are seen in the tail portion of the pancreas. Adrenals: Unremarkable Kidneys: The right kidney is engorged. There is evidence of a moderate degree of right hydronephrosis with a right perinephric stranding. Proximal dilatation of the right ureter due to a 5.1 mm calculus in the midportion of the right ureter. Tiny bilateral nonobstructive intrarenal calculi. Bladder: Urinary bladder is unremarkable. There is prostatic enlargement with the indentation of the bladder base. Bowel: Colonic diverticulosis without diverticulitis. Appendix: The appendix is not identified. There is no inflammatory process identified in the right lower quadrant to suggest appendicitis. Lymph nodes: Unremarkable. Vasculature: Mild diffuse atherosclerotic calcifications are noted. Peritoneum / Retroperitoneum: Unremarkable Bones: Degenerative changes of the spine. CT/Abdomen/Pelvis without Cont IMPRESSION: Status post Whipple procedure as described. Right hydronephrosis and hydroureter due to a 5.1 mm calculus in the midportion of the right ureter. Right perinephric stranding. Prostatic enlargement. Reading Location: [place] [id number]
--- NOTE | 2025-10-27 10:43 | ED.VIS.GI ---
HPI HPI - GI History of Present Illness Chief Complaint: Flank Pain Informant: patient and spouse/S.O. Abdominal Pain/Flank Pain Onset: Weeks (1 week) Context: Gradual Onset Timing: Continuous Location: Right Flank Current Severity: Moderate Maximum Severity: Moderate Nausea/Vomiting/Emesis GI Symptom: Positive for Nausea and Vomiting Onset: Days Severity: Mild Diarrhea/Melena/Hematochezia GI Symptom: Negative for Diarrhea or Melena Associated Symptoms Associated Symptoms: Positive for Hematuria; Negative for Dysuria or Frequency Narrative Narrative: 75-year-old male history of both prior pancreatic and prior lung CA. History of prior kidney stones. Prior pulmonary emboli on the blood thinner Eliquis. Says for about a week he has had right flank pain. Moved to his side. He has recently developed nausea vomiting. And hematuria. Denies any fever or chills. Denies any recent hospitalization. Prior similar symptoms: Yes Recent Illness/Hospitalization: No PFSH PFSH Medical History Wears glasses Alcohol use Pulmonary embolism Factor VIII deficiency History of pancreatic cancer Spiral fracture of shaft of tibia Spiral fracture of shaft of fibula Hx of cancer of lung Hx of pulmonary embolus Home Medications ?Medication ?Instructions ?Recorded ?Last Taken ?Type apixaban 5 mg tablet (Eliquis) 5 mg PO BID BLOOD THINNER 01/08/22 01/20/22 History ascorbic acid (vitamin C) 500 mg 500 mg PO DAILY SUPPLEMENT 01/08/22 01/08/22 History tablet cholecalciferol (vitamin D3) 125 125 mcg PO DAILY SUPPLEMENT 01/08/22 01/08/22 History mcg (5,000 unit) capsule wxorne-jxezfpeh-prgnbeb(pork)12,000-38,000-60,000 1 cap PO BID pancreas 01/08/22 Unknown History unit capsule,del rel (Creon) rye grass extract 500 mg-quercetin 1 tab PO DAILY SUPPLEMENT 01/08/22 01/08/22 History 250 mg tablet zinc 25 mg tablet 25 mg PO DAILY SUPPLEMENT 01/08/22 01/08/22 History acetaminophen 325 mg tablet 650 mg (2 x 325 mg) PO Q4H PRN PRN 01/09/22 Unknown Rx (Tylenol) Fever, pain 1-10 #0 tabs oxycodone 5 mg tablet 5 mg PO Q4H PRN PRN Pain Score 01/09/22 01/24/22 05:30 Rx 6-10 7 days #15 tabs rivaroxaban 20 mg tablet (Xarelto) 20 mg PO DAILY 10/27/25 Unknown History Allergy/AdvReac Type Severity Reaction Status Date / Time No Known Allergies Allergy Verified 10/27/25 10:22 Family History Father Myocardial infarction age 54 from sudden [place]. Heart disease Hypertension Sister Cancer Sister with breast CA. Brother Cancer Brother with prostate CA and another Brother x 1 with Skin CA. Family History no significant family his Surgical History History of lobectomy of lung History of Whipple procedure Surgical History unable to obtain Social History household members: spouse Smoking Status: Former smoker how long ago did patient quit smoking: Smoked 2-3 years late teens to early 20s, 1/2 ppd until quit. alcohol intake: current alcohol intake frequency: a few times a week substance use type: does not use ROS ROS ED ROS Narrative Right flank pain. Nausea vomiting. Hematuria. Constitutional Constitutional ED: Denies chills or fever(s) ENT ENT ED: Denies ear pain Cardiovascular Cardiovascular: Denies chest pain Respiratory/Chest Respiratory/Chest: Denies cough or dyspnea Gastrointestinal Gastrointestinal: Reports abdominal pain, nausea and vomiting; Denies diarrhea Genitourinary Genitourinary ED: Reports hematuria Musculoskeletal Musculoskeletal: Denies arthralgias, back pain, myalgias or neck pain Integumentary Denies abscess Neurologic Neurologic: Denies headache(s) Psychiatric Psychiatric: Denies anxiety Endocrine Endocrinology: Denies polydipsia Hematologic/Lymphatic Hematologic/Lymphatic: Reports lymphadenopathy Allergic/Immunologic Allergic/Immunologic ED: Denies mouth swelling, tongue swelling or urticaria EXAM Physical Exam Narrative Exam Narrative: 75 male sitting upright in bed in the room. Vital signs are stable afebrile. No acute distress. H EENT exam pupils round react light. Moist mutes membranes. Neck nontender JVD. No lymphadenopathy. Lungs clear to auscultation bilaterally. Heart regular rhythm rate about 80 no murmur. Chest wall ribs nontender. Abdomen soft, nontender, nondistended, normal bowel sounds without peritoneal signs. No reproducible abdominal or back or flank pain. No ecchymosis or bruising. No rash. Moving all 4 extremities. Normal strength. Nontender no edema. Neurologically he is awake alert. Answering questions following commands. No focal motor deficits. Const Vital Signs: 10/27/25 10:20 Temperature 98.2 F Temperature Source Oral Pulse Rate 81 Respiratory Rate 16 Blood Pressure 157/93 H Blood Pressure Mean 114 Pulse Ox 98 Oxygen Delivery Method Room Air MDM MDM MDM Narrative Medical decision making narrative: 75-year-old male right flank pain history of kidney stones. He worked up as a possible kidney stone versus UTI versus other. He will be given morphine 6 mg and IV Zofran for pain IV fluids do his nausea and vomiting. Patient is doing well on repeat exam. I spoke to our urologist Dr. Richmond Fleming who has seen the patient before in the past. He will admit the patient due to the kidney stone with obstruction. We are still awaiting urine sample for urinalysis. Patient and and instructed the plan they are comfortable to plan. History & Record Review Discussion w/independent historian: Patient and Family Additional record(s) reviewed:: Prior outpatient record, Prior ED visit and Prior labs Lab Data Attestation: I reviewed the patient's lab results. Lab results narrative: CBC shows a white count of 15.8. H&H 14 and 43. Platelets 224. Chemistry shows sodium 130. Gap 15. BUN and creatinine 20 and 1.68 Nease had elevated creatinines like this before. Glucose 190. CT without contrast flank study shows a 5.1 mm proximal to mid ureteral stone with hydroureter and hydronephrosis. Stranding of the right kidney. Consistent with obstruction. Urinalysis showed no signs of infection. Occult blood. And red blood cells on microscopic. 1+ bacteria. No nitrates no white cells. Labs: Laboratory Results - last 24 hr 10/27/25 10:30 WBC 15.8 H RBC 4.84 Hgb 14.9 Hct 43.7 MCV 90.3 MCH 30.8 MCHC 34.1 RDW Std Deviation 43.8 RDW Coeff of Tess 13.2 Plt Count 224 MPV 9.1 Immature Gran % (Auto) 0.400 Neut % (Auto) 76.3 H Lymph % (Auto) 13.5 L Long % (Auto) 9.7 Eos % (Auto) 0.0 Baso % (Auto) 0.1 Absolute Neuts (auto) 12.0 H Absolute Lymphs (auto) 2.13 Nucleated RBC % 0 Differential Comment COMMENT Sodium 130 L Potassium 4.3 Chloride 94 L Carbon Dioxide 21.7 Anion Gap 15 BUN 20 H Creatinine 1.68 H Estim Creat Clear Calc 42.98 L Est GFR (MDRD) Non-Af 43 L BUN/Creatinine Ratio 11.8 Glucose 190 H Calcium 8.9 Radiography Diagnostic Testing: Clinical Impression(s) from Imaging Studies Abdomen/Pelvis CT 10/27/25 10:42 IMPRESSION: Status post Whipple procedure as described. Right hydronephrosis and hydroureter due to a 5.1 mm calculus in the midportion of the right ureter. Right perinephric stranding. Prostatic enlargement. [facility] Plan Dx/Rx/DC Orders Clinical Impression: Kidney stone on right side, Acute unilateral obstructive uropathy, Acute renal insufficiency, Intractable abdominal pain, History of pancreatic cancer Disposition Disposition: Acute Care Hospital [facility]
[2025-10-27 10:57] LABS: Hematocrit 43.7 % (40-54); Hemoglobin 14.9 g/dL (13.0-16.5); Immature Granulocytes Count 0.060 X10^3/uL (0.0-0.0); Mean Corp Hgb Conc 34.1 g/dL (32-36); Mean Corpuscular Volume 90.3 fL (80-94); Mean Platelet Vol. 9.1 fl (6.2-12.0); NRBC Flagged by Analyzer 0 % (0-5); POSITIVE DIFFERENTIAL YES; Platelet Count 224 K/mm3 (150-450); RBC Distribution Width CV 13.2 % (11.6-14.6); RBC Distribution Width SD 43.8 fl (35.1-43.9); Red Blood Count 4.84 M/mm3 (4.6-6.2); White Blood Count 15.8 K/mm3 (4.4-11.0)
[2025-10-27] MEDS: 0.9% Normal Saline (1000mL) 1,000 ML 999 ML IV (10:57)
[2025-10-27 10:59] LABS: Differential Indicated SCAN CRITERIA MET
[2025-10-27 11:14] LABS: Anion Gap 15 (5-15); BUN 20 mg/dL (4-19); BUN/Creat Ratio 11.8 RATIO (10-20); Calcium,Total 8.9 mg/dL (7.6-11.0); Carbon Dioxide 21.7 mmol/L (21.0-32.0); Chloride 94 mmol/L (98-108); Estimated Creatinine Clearance 42.98 ml/min (50-250); Glucose 190 mg/dL (70-99); Potassium 4.3 mmol/L (3.3-5.1)
--- NOTE | 2025-10-27 11:24 | PCM.HP.STD ---
HPI - General General Date of Service: 10/27/25 Chief Complaint: + HPI Narrative CHELA HERRERA, is a 75 M presents with an obstructing stone in the mid right ureter patient has of severe hydronephrosis will admit the patient for stent placement today [facility] Medical History Wears glasses Alcohol use Pulmonary embolism Factor VIII deficiency History of pancreatic cancer Spiral fracture of shaft of tibia Spiral fracture of shaft of fibula Hx of cancer of lung Hx of pulmonary embolus Home Medications ?Medication ?Instructions ?Recorded ?Last Taken ?Type apixaban 5 mg tablet (Eliquis) 5 mg PO BID BLOOD THINNER 01/08/22 01/20/22 History ascorbic acid (vitamin C) 500 mg 500 mg PO DAILY SUPPLEMENT 01/08/22 01/08/22 History tablet cholecalciferol (vitamin D3) 125 125 mcg PO DAILY SUPPLEMENT 01/08/22 01/08/22 History mcg (5,000 unit) capsule txgnar-zckeqcys-eykyrhl(pork)12,000-38,000-60,000 1 cap PO BID pancreas 01/08/22 Unknown History unit capsule,del rel (Creon) rye grass extract 500 mg-quercetin 1 tab PO DAILY SUPPLEMENT 01/08/22 01/08/22 History 250 mg tablet zinc 25 mg tablet 25 mg PO DAILY SUPPLEMENT 01/08/22 01/08/22 History acetaminophen 325 mg tablet 650 mg (2 x 325 mg) PO Q4H PRN PRN 01/09/22 Unknown Rx (Tylenol) Fever, pain 1-10 #0 tabs oxycodone 5 mg tablet 5 mg PO Q4H PRN PRN Pain Score 01/09/22 01/24/22 05:30 Rx 6-10 7 days #15 tabs rivaroxaban 20 mg tablet (Xarelto) 20 mg PO DAILY 10/27/25 Unknown History Allergy/AdvReac Type Severity Reaction Status Date / Time No Known Allergies Allergy Verified 10/27/25 10:22 Family History Father Myocardial infarction age 54 from sudden [place]. Heart disease Hypertension Sister Cancer Sister with breast CA. Brother Cancer Brother with prostate CA and another Brother x 1 with Skin CA. Family History no significant family his Surgical History History of lobectomy of lung History of Whipple procedure Surgical History unable to obtain Social History household members: spouse Smoking Status: Former smoker how long ago did patient quit smoking: Smoked 2-3 years late teens to early 20s, 1/2 ppd until quit. alcohol intake: current alcohol intake frequency: a few times a week substance use type: does not use Vital Signs Vital Signs Vital Signs: 10/27/25 10:20 Temperature 98.2 F Temperature Source Oral Pulse Rate 81 Respiratory Rate 16 Blood Pressure 157/93 H Blood Pressure Mean 114 Pulse Ox 98 Oxygen Delivery Method Room Air Weight Weight: 92 kg Body Mass Index (BMI) 27.5 Results Lab / Micro Data 10/27/25 10:30 10/27/25 10:30 Labs: Laboratory Results - last 24 hr 10/27/25 10:30: WBC 15.8 H, RBC 4.84, Hgb 14.9, Hct 43.7, MCV 90.3, MCH 30.8, MCHC 34.1, RDW Std Deviation 43.8, RDW Coeff of Tess 13.2, Plt Count 224, MPV 9.1, Immature Gran % (Auto) 0.400, Neut % (Auto) 76.3 H, Lymph % (Auto) 13.5 L, Castro % (Auto) 9.7, Eos % (Auto) 0.0, Baso % (Auto) 0.1, Absolute Neuts (auto) 12.0 H, Absolute Lymphs (auto) 2.13, Nucleated RBC % 0, Sodium 130 L, Potassium 4.3, Chloride 94 L, Carbon Dioxide 21.7, Anion Gap 15, BUN 20 H, Creatinine 1.68 H, Estim Creat Clear Calc 42.98 L, Est GFR (MDRD) Non-Af 43 L, BUN/Creatinine Ratio 11.8, Glucose 190 H, Calcium 8.9 Imaging Radiology Impression Abdomen/Pelvis CT 10/27/25 10:42 IMPRESSION: Status post Whipple procedure as described. Right hydronephrosis and hydroureter due to a 5.1 mm calculus in the midportion of the right ureter. Right perinephric stranding. Prostatic enlargement. Reading Location: [facility] Assessment & Plan Assessment/Plan (1) Calculus of kidney: PLAN: Plan for cystoscopy and right stent placement today in the OR admit for pain control
[2025-10-27 11:42] LABS: Color, Urine Yellow (Yellow); Glucose, Dipstick Normal (Normal); Ketone-Dipstick 5 mg/dl (Negative); Leukocyte Esterase-Dipstick Negative /ul (Negative); Nitrite-Dipstick Negative (Negative); Occult Blood-Urine 250 /ul (Negative); Protein-Dipstick 30 mg/dl (Negative); Specific Gravity, Urine 1.025 (1.002-1.030); Urine Bilirubin Dipstick Negative (Negative)
[2025-10-27 11:48] LABS: Red Blood Cells-Urine 10-25 SEEN /hpf (0-5)
[2025-10-27 11:49] LABS: Mucous, Urine 1+ /hpf (<or=2+); Squamous Epithelial Cells - UA 0-5 SEEN /hpf (0-5)
--- OUTSIDE RECORDS SUMMARY | 2025-10-27 11:56 | XMS RPT_ITS | CCD ---
Author Organization [facility] Care Team Providers Care Shopping Investigator Name Role Phone Antony Messer MD Primary Care Provider [phone] Pb Kruse DO Unavailable Antony Messer Referring Unavailable Antony Messer Attending Unavailable Antony Messer Primary Care Unavailable Antony Messer MD Primary Care Provider [phone] Pb Kruse DO Unavailable PB KRUSE Attending Unavailable CHANO, ANTONY A Primary Care Unavailable CHANO, ANTONY A Primary Care Unavailable NILAM HARRINGTON Referring Unavailable CHANO, ANTONY A Primary Care Unavailable NILAM HARRINGTON Referring Unavailable CHANO, ANTONY A Primary Care Unavailable CHANO, ANTONY A Referring Unavailable CHANO, ANTONY A Primary Care Unavailable CHANO, ANTONY A Primary Care Unavailable NILAM HARRINGTON Attending Unavailable CHANO, ANTONY A Primary Care Unavailable PB KRUSE Referring Unavailable CHANO, ANTONY A Primary Care Unavailable PB KRUSE Referring Unavailable PB KRUSE Referring Unavailable CHANO, ANTONY A Primary Care Unavailable Medications Current Medications Medication Drug Class(es) Dates Sig (Normalized) Sig (Original) acetaminophen 500 mg oral tablet (19 sources) take 2 tablets by mouth every six hours as needed acetaminophen (TYLENOL) 500 mg tablet Indications: Pancreatic cancer (HCC) , Fever Take 1,000 mg by mouth every 6 hours as needed. Active Comment on above: Take 1,000 mg by rad th every 6 hours as needed. amylase 21293 unt / lipase 01121 unt / protease 61690 unt delayed release oral capsule (19 sources) Start: 10-29-2015 take 2 capsules by mouth three times daily at mealtime meulbg-qjidgycv-fcg lase (CREON) 12,000-38,000 -60,000 unit cpDR Take 2 capsules by mouth three times daily with meals. 270 capsule 3 10/29/2015 Active Comment on above: Take 2 capsules by m outh three times daily with meals. ascorbic acid 500 mg oral tablet (19 sources) Vitamin C take 1 tablet by mouth once daily ascorbic acid, vitamin C, (VITAMIN C) 500 mg tablet Take 500 mg by mouth once daily. Active Comment on above: Take 500 mg by mouth once daily. cholecalciferol 5000 unt / folic acid 1 mg oral tablet (19 sources) Vitamin D vitamin D3-folic acid 5,000 unit- 1 mg tab Take by mouth once daily. Active Comment on above: Take by mouth once d aily. enteric contrast (will be provided with radiology test) (20 sources) Start: 05-30-2025 End: 05-31-2025 enteric contrast (will be provided with radiology test) Indications: Encounter for follow-up surveillance of pancreatic cancer , Malignant neoplasm of head of pancreas (HCC) , 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) For CT CHESTABD/PEL W IVCON Routine order Administer, As Directed One Time Only, via Oral, Rectal, both Oral and Rectal, Enteric Tube, Stoma or Indwelling Catheter, Enteric Contrast as designated per enteric contrast guidelines 1 each 05/30/2025 05/31/2025 Active Start: 11-17-[address] (will be provided with radiology test) Indications: Malignant neoplasm of head of pancreas (HCC) , 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) For CT ABD/PEL W IVCON Routine order Administer, As Directed One Time Only, via Oral, Rectal, both Oral and Rectal, Enteric Tube, Stoma or Indwelling Catheter, Enteric Contrast as designated per enteric contrast guidelines 1 Each 11/17/2024 Active Start: 05-09-2024 End: 2024 enteric contrast (will be pr ovided with radiology test) Indications: Malignant neoplasm of head of pancreas (HCC) , 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) For CT CHESTABD/PEL W IVCON Routine order Administer, As Directed One Time Only, via Oral, Rectal, both Oral and Rectal, Enteric Tube, Stoma or Indwelling Catheter, Enteric Contrast as designated per enteric contrast guidelines 1 Each 0 05/09/2024 2024 Start: 11-02-2023 End: 11-17-2024 enteric contrast (will be pr ovided with radiology test) Indications: Malignant neoplasm of head of pancreas (HCC) , 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) For CT ABD/PEL W IVCON Routine order Administer, As Directed One Time Only, via Oral, Rectal, both Oral and Rectal, Enteric Tube, Stoma or Indwelling Catheter, Enteric Contrast as designated per enteric contrast guidelines 1 Each 11/02/2023 11/17/2024 Discontinued Start: 11-02-[address] (will be provided with radiology test) Indications: Malignant neoplasm of head of pancreas (HCC) , 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) For CT ABD/PEL W IVCON Routine order Administer, As Directed One Time Only, via Oral, Rectal, both Oral and Rectal, Enteric Tube, Stoma or Indwelling Catheter, Enteric Contrast as designated per enteric contrast guidelines 1 Each 11/02/2023 Active Start: 11-02-[address] (will be provided with radiology test) Indications: Malignant neoplasm of head of pancreas (HCC) , 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) For CT ABD/PEL W IVCON Routine order Administer, As Directed One Time Only, via Oral, Rectal, both Oral and Rectal, Enteric Tube, Stoma or Indwelling Catheter, Enteric Contrast as designated per enteric contrast guidelines 1 Each 0 11/02/2023 Active Start: 05-13-[address] (will be provided with radiology test) Indications: Malignant neoplasm of head of pancreas (HCC) , 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) For CT ABD/PEL W IVCON Routine order Administer, As Directed One Time Only, via Oral, Rectal, both Oral and Rectal, Enteric Tube, Stoma or Indwelling Catheter, Enteric Contrast as designated per enteric contrast guidelines 1 Each 0 05/13/2023 Active Start: 11-06-2022 End: 11-07-2022 enteric contrast (will be pr ovided with radiology test) Indications: Malignant neoplasm of head of pancreas (HCC) , Malignant neoplasm of upper lobe of right lung (HCC) , H/O resection of pancreas For CT CHESTABD/PEL W IVCON Routine order Administer, As Directed One Time Only, via Oral, Rectal, both Oral and Rectal, Enteric Tube, Stoma or Indwelling Catheter, Enteric Contrast as designated per enteric contrast guidelines 1 Each 0 11/06/2022 11/07/2022 Start: 05-08-2022 End: 05-09-2022 enteric contrast (will be pr ovided with radiology test) Indications: Malignant neoplasm of head of pancreas (HCC) , 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) For CT CHESTABD/PEL W IVCON Routine order Administer, As Directed One Time Only, via Oral, Rectal, both Oral and Rectal, Enteric Tube, Stoma or Indwelling Catheter, Enteric Contrast as designated per enteric contrast guidelines 1 Each 0 05/08/2022 05/09/2022 Active Start: 11-06-[address] (will be provided with radiology test) Indications: Lung nodules , Malignant neoplasm of head of pancreas (HCC) For CT ABD/PEL W IVCON Routine order Administer, As Directed One Time Only, via Oral, Rectal, both Oral and Rectal, Enteric Tube, Stoma or Indwelling Catheter, Enteric Contrast as designated per enteric contrast guidelines 1 Each 0 11/06/2021 Active Comment on above: For CT ABD/PEL W IVC ON Routine order Administer, As Directed One Time Only, via Oral, Rectal, both Oral and Rectal, Enteric Tube, Stoma or Indwelling Catheter, Enteric Contrast as designated per enteric contrast guidelines For CT CHESTABD/PEL W IVCON Routine order Administer, As Directed One Time Only, via Oral, Rectal, both Oral and Rectal, Enteric Tube, Stoma or Indwelling Catheter, Enteric Contrast as designated per enteric contrast guidelines iv contrast (will be provided with radiology test) (20 sources) Start: 05-30-2025 End: 05-31-2025 iv contrast (will be provided with radiology test) Indications: Encounter for follow-up surveillance of pancreatic cancer , Malignant neoplasm of head of pancreas (HCC) , 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) CT Chest ABD/PEL-Inject, intravenously, once for 1 dose.No IV access, insert saline lock prior to the beginning of sedation, infusion, injection of imaging exam. Discontinue saline lock post exam. If Pt. has a central line or IVAD, may access for administration according to line specific nursing protocol. Once exam is complete flush line and de-access according to line specific nursing protocol in the CT contrast administration guidelines link. 1 each 05/30/2025 05/31/2025 Active Start: 11-17-2024 iv contrast (w ill be provided with radiology test) Indications: Malignant neoplasm of head of pancreas (HCC) , 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) CT Chest W -Inject, intravenously, once for 1 dose.No IV access, insert saline lock prior to the beginning of sedation, infusion, injection of imaging exam. Discontinue saline lock post exam. If Pt. has a central line or IVAD, may access for administration according to line specific nursing protocol. Once exam is complete flush line and de-access according to line specific nursing protocol in the CT contrast administration guidelines link. 1 Each 11/17/2024 Active Start: 11-17-2024 iv contrast (w ill be provided with radiology test) Indications: Malignant neoplasm of head of pancreas (HCC) , 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) CT ABD/PEL -Inject, intravenously, once for 1 dose.No IV access, insert saline lock prior to the beginning of sedation, infusion, injection of imaging exam. Discontinue saline lock post exam. If Pt. has a central line or IVAD, may access for administration according to line specific nursing protocol. Once exam is complete flush line and de-access according to line specific nursing protocol in the CT contrast administration guidelines link. 1 Each 11/17/2024 Active Start: 05-09-2024 End: 2024 iv contrast (will be provide d with radiology test) Indications: Malignant neoplasm of head of pancreas (HCC) , 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) CT Chest ABD/PEL-Inject, intravenously, once for 1 dose.No IV access, insert saline lock prior to the beginning of sedation, infusion, injection of imaging exam. Discontinue saline lock post exam. If Pt. has a central line or IVAD, may access for administration according to line specific nursing protocol. Once exam is complete flush line and de-access according to line specific nursing protocol in the CT contrast administration guidelines link. 1 Each 0 05/09/2024 2024 Start: 11-02-2023 End: 11-17-2024 iv contrast (will be provide d with radiology test) Indications: Malignant neoplasm of head of pancreas (HCC) , 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) CT ABD/PEL -Inject, intravenously, once for 1 dose.No IV access, insert saline lock prior to the beginning of sedation, infusion, injection of imaging exam. Discontinue saline lock post exam. If Pt. has a central line or IVAD, may access for administration according to line specific nursing protocol. Once exam is complete flush line and de-access according to line specific nursing protocol in the CT contrast administration guidelines link. 1 Each 11/02/2023 11/17/2024 Discontinued Start: 11-02-2023 End: 11-17-2024 iv contrast (will be provide d with radiology test) Indications: Malignant neoplasm of head of pancreas (HCC) , 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) CT Chest W -Inject, intravenously, once for 1 dose.No IV access, insert saline lock prior to the beginning of sedation, infusion, injection of imaging exam. Discontinue saline lock post exam. If Pt. has a central line or IVAD, may access for administration according to line specific nursing protocol. Once exam is complete flush line and de-access according to line specific nursing protocol in the CT contrast administration guidelines link. 1 Each 11/02/2023 11/17/2024 Discontinued Start: 11-02-2023 iv contrast (w ill be provided with radiology test) Indications: Malignant neoplasm of head of pancreas (HCC) , 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) CT ABD/PEL -Inject, intravenously, once for 1 dose.No IV access, insert saline lock prior to the beginning of sedation, infusion, injection of imaging exam. Discontinue saline lock post exam. If Pt. has a central line or IVAD, may access for administration according to line specific nursing protocol. Once exam is complete flush line and de-access according to line specific nursing protocol in the CT contrast administration guidelines link. 1 Each 11/02/2023 Active Start: 11-02-2023 iv contrast (w ill be provided with radiology test) Indications: Malignant neoplasm of head of pancreas (HCC) , 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) CT Chest W -Inject, intravenously, once for 1 dose.No IV access, insert saline lock prior to the beginning of sedation, infusion, injection of imaging exam. Discontinue saline lock post exam. If Pt. has a central line or IVAD, may access for administration according to line specific nursing protocol. Once exam is complete flush line and de-access according to line specific nursing protocol in the CT contrast administration guidelines link. 1 Each 11/02/2023 Active Start: 11-02-2023 iv contrast (w ill be provided with radiology test) Indications: Malignant neoplasm of head of pancreas (HCC) , 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) CT ABD/PEL -Inject, intravenously, once for 1 dose.No IV access, insert saline lock prior to the beginning of sedation, infusion, injection of imaging exam. Discontinue saline lock post exam. If Pt. has a central line or IVAD, may access for administration according to line specific nursing protocol. Once exam is complete flush line and de-access according to line specific nursing protocol in the CT contrast administration guidelines link. 1 Each 0 11/02/2023 Active Start: 11-02-2023 iv contrast (w ill be provided with radiology test) Indications: Malignant neoplasm of head of pancreas (HCC) , 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) CT Chest W -Inject, intravenously, once for 1 dose.No IV access, insert saline lock prior to the beginning of sedation, infusion, injection of imaging exam. Discontinue saline lock post exam. If Pt. has a central line or IVAD, may access for administration according to line specific nursing protocol. Once exam is complete flush line and de-access according to line specific nursing protocol in the CT contrast administration guidelines link. 1 Each 0 11/02/2023 Active Start: 05-13-2023 iv contrast (w ill be provided with radiology test) Indications: Malignant neoplasm of head of pancreas (HCC) , 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) CT ABD/PEL -Inject, intravenously, once for 1 dose.No IV access, insert saline lock prior to the beginning of sedation, infusion, injection of imaging exam. Discontinue saline lock post exam. If Pt. has a central line or IVAD, may access for administration according to line specific nursing protocol. Once exam is complete flush line and de-access according to line specific nursing protocol in the CT contrast administration guidelines link. 1 Each 0 05/13/2023 Active Start: 05-13-2023 iv contrast (w ill be provided with radiology test) Indications: Malignant neoplasm of head of pancreas (HCC) , 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) CT Chest W -Inject, intravenously, once for 1 dose.No IV access, insert saline lock prior to the beginning of sedation, infusion, injection of imaging exam. Discontinue saline lock post exam. If Pt. has a central line or IVAD, may access for administration according to line specific nursing protocol. Once exam is complete flush line and de-access according to line specific nursing protocol in the CT contrast administration guidelines link. 1 Each 0 05/13/2023 Active Start: 11-06-2022 End: 11-07-2022 iv contrast (will be provide d with radiology test) Indications: Malignant neoplasm of head of pancreas (HCC) , Malignant neoplasm of upper lobe of right lung (HCC) , H/O resection of pancreas CT Chest ABD/PEL-Inject, intravenously, once for 1 dose.No IV access, insert saline lock prior to the beginning of sedation, infusion, injection of imaging exam. Discontinue saline lock post exam. If Pt. has a central line or IVAD, may access for administration according to line specific nursing protocol. Once exam is complete flush line and de-access according to line specific nursing protocol in the CT contrast administration guidelines link. 1 Each 0 11/06/2022 11/07/2022 Start: 05-08-2022 End: 05-09-2022 iv contrast (will be provide d with radiology test) Indications: Malignant neoplasm of head of pancreas (HCC) , 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) CT Chest ABD/PEL-Inject, intravenously, once for 1 dose.No IV access, insert saline lock prior to the beginning of sedation, infusion, injection of imaging exam. Discontinue saline lock post exam. If Pt. has a central line or IVAD, may access for administration according to line specific nursing protocol. Once exam is complete flush line and de-access according to line specific nursing protocol in the CT contrast administration guidelines link. 1 Each 0 05/08/2022 05/09/2022 Active Start: 11-06-2021 iv contrast (w ill be provided with radiology test) Indications: Lung nodules , Malignant neoplasm of head of pancreas (HCC) CT Chest W -Inject, intravenously, once for 1 dose.No IV access, insert saline lock prior to the beginning of sedation, infusion, injection of imaging exam. Discontinue saline lock post exam. If Pt. has a central line or IVAD, may access for administration according to line specific nursing protocol. Once exam is complete flush line and de-access according to line specific nursing protocol in the CT contrast administration guidelines link. 1 Each 0 11/06/2021 Active Start: 11-06-2021 iv contrast (w ill be provided with radiology test) Indications: Lung nodules , Malignant neoplasm of head of pancreas (HCC) CT ABD/PEL -Inject, intravenously, once for 1 dose.No IV access, insert saline lock prior to the beginning of sedation, infusion, injection of imaging exam. Discontinue saline lock post exam. If Pt. has a central line or IVAD, may access for administration according to line specific nursing protocol. Once exam is complete flush line and de-access according to line specific nursing protocol in the CT contrast administration guidelines link. 1 Each 0 11/06/2021 Active Comment on above: CT Chest W -Inject, intravenously, once for 1 dose.No IV access, insert saline lock prior to the beginning of sedation, infusion, injection of imaging exam. Discontinue saline lock post exam. If Pt. has a central line or IVAD, may access for administration according to line specific nursing protocol. Once exam is complete flush line and de-access according to line specific nursing protocol in the CT contrast administration guidelines link. CT ABD/PEL -Inject, intravenously, once for 1 dose.No IV access, insert saline lock prior to the beginning of sedation, infusion, injection of imaging exam. Discontinue saline lock post exam. If Pt. has a central line or IVAD, may access for administration according to line specific nursing protocol. Once exam is complete flush line and de-access according to line specific nursing protocol in the CT contrast administration guidelines link. CT Chest ABD/PEL-Inj ect, intravenously, once for 1 dose.No IV access, insert saline lock prior to the beginning of sedation, infusion, injection of imaging exam. Discontinue saline lock post exam. If Pt. has a central line or IVAD, may access for administration according to line specific nursing protocol. Once exam is complete flush line and de-access according to line specific nursing protocol in the CT contrast administration guidelines link. perflutren lipid microspheres 1.3 mL in NaCl (PF) 0.9% 10 mL injection (DEFINITY) (1 source) Start: 01-17-20 21 End: 04-18-20 22 perflutren lipid microspheres 1.3 mL in NaCl (PF) 0.9% 10 mL injection (DEFINITY) rivaroxaban 20 mg oral tablet (20 sources) Factor Xa Inhibitor Start: 09-11-20 24 take 1 tablet by mouth once daily rivaroxaban (XARELTO) 20 mg tablet Take 1 tablet by mouth once daily. 90 tablet 3 09/11/2024 Active Start: 09-10-2023 End: 09-09-2024 take 1 tablet by mouth once daily rivaroxaban (XARELTO) 20 mg tablet Take 1 tablet by mouth once daily. 90 tablet 3 09/10/2023 09/09/2024 Discontinued Start: 03-18-2022 End: 09-22-2022 take 1 tablet by mouth once daily rivaroxaban (XARELTO) 20 mg tablet Take 1 tablet by mouth once daily. 90 tablet 3 09/22/2022 Active Comment on above: Take 1 tablet by rad th once daily. 125 ml sodium chloride 9 mg/ml prefilled syringe (1 source) Start: 01-16-2021 End: 04-18-2022 sodium chloride 0.9 % (flush) 10 mL (BD POSIFLUSH) zinc acetate 25 mg oral capsule (19 sources) Zinc Acetate, Or al, 25 mg (zinc) cap Take by mouth once daily. Active Comment on above: Take by mouth once d aily. Completed/Discontinued Medications Medication Drug Class(es) Dates Sig (Normalized) Sig (Original) apixaban 5 mg oral tablet (1 source) Factor Xa Inhibitor Start: 05-16-2021 End: 03-18-2022 ELIQUIS 5 mg tab(s) Indications: Other chronic pulmonary embolism without acute cor pulmonale (HCC) , Chronic anticoagulation TAKE 1 TABLET TWICE A DAY 180 tablet 3 05/16/2021 03/18/2022 Discontinued Comment on above: TAKE 1 TABLET TWICE A DAY DULoxetine 30 mg delayed release oral capsule (7 sources) Serotonin and Norepinephrine Reuptake Inhibitor Start: 05-13-2023 End: 05-09-2024 take 1 capsule by mouth once daily DULoxetine (CYMBALTA) 30 mg capsule Take 1 capsule by mouth once daily. 30 capsule 5 05/13/2023 05/09/2024 Discontinued Comment on above: Take 1 capsule by mouth once daily. ibuprofen 200 mg oral tablet (1 source) Nonsteroidal Anti-inflammatory Drug End: 03-18-2022 take 2 tablets by mouth every six hours as needed ibuprofen (ADVIL) 200 mg tablet Indications: Pancreatic cancer (HCC) , Fever Take 400 mg by mouth every 6 hours as needed. 0 03/18/2022 Discontinued Comment on above: Take 400 mg by mouth every 6 hours as ne eded. Problems Active Problems Problem Classification Problem Date Documented Da te Episodic/Chronic Cancer of bronchus; lung (20 sources) Malignant neoplasm of right upper lobe of lung; Translations: [Malignant neoplasm of upper lobe, right bronchus or lung] Onset: 01-31-2021 02-04-2021 Chronic Cancer of other GI organs; peritoneum (4 sources) History of malignant neoplasm of pancreas; Translations: [Encounter for follow-up examination after completed treatment for malignant neoplasm] Onset: 05-30-2025 05-30-2025 Episodic Cancer of pancreas (20 sources) Malignant tumor of head of pancreas; Translations: [Malignant neoplasm of head of pancreas] Onset: 06-22-2012 Resolved: 04-28-2016 02-03-2021 Chronic Other aftercare (1 source) Encounter for follow-up examination after completed treatment for malignant neoplasm; Translations: [Encounter for follow-up surveillance of pancreatic cancer] Onset: 05-30-2025 Episodic Other inflammatory condition of skin (2 sources) Arthropathic psoriasis, unspecified; Translations: [Arthropathic psoriasis, unspecified] Onset: 07-15-2024 Chronic Other nervous system disorders (1 source) Neuropathy caused by chemical substance; Translations: [Drug-induced polyneuropathy] 10-22-2023 Chronic Pulmonary heart disease (12 sources) Chronic pulmonary embolism; Translations: [Chronic pulmonary embolism] Onset: 11-30-2008 Resolved: 10-29-2015 10-22-2023 Chronic Secondary malignancies (20 sources) Secondary malignant neoplasm of right lung; Translations: [Secondary malignant neoplasm of right lung] Onset: 04-11-2021 04-11-2021 Chronic Secondary malignancies (1 source) Secondary malignant neoplasm of right lung; Translations: [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)] Onset: 04-11-2021 Chronic Past or Other Problems Problem Classification Problem Date Documented Date Episodic/Chronic Administrative/social admission (19 sources) Discharge status; Translations: [Encounter for administrative examinations, unspecified] Onset: 01-31-2021 02-04-2021 Episodic Anal and rectal conditions (10 sources) Rectal mass; Translations: [Other specified diseases of anus and rectum] Onset: 04-11-2010 Resolved: 03-27-2014 03-27-2014 Episodic Biliary tract disease (20 sources) Extrahepatic obstructive biliary disease; Translations: [Obstruction of bile duct] Onset: 04-03-2012 Resolved: 10-28-2016 10-28-2016 Chronic Calculus of urinary tract (19 sources) Kidney stone; Translations: [Calculus of kidney] Onset: 2018 01-28-2021 Episodic Coagulation and hemorrhagic disorders (10 sources) Blood coagulation disorder; Translations: [Coagulation defect, unspecified] Onset: 11-30-2008 Resolved: 04-28-2017 04-28-2017 Chronic Complications of surgical procedures or medical care (19 sources) Atrial fibrillation; Translations: [Other postprocedural complications and disorders of the circulatory system, not elsewhere classified] Onset: 02-02-2021 02-04-2021 Episodic Immunizations and screening for infectious disease (2 sources) Encounter for screening for other viral diseases; Translations: [Screening examination for poliomyelitis] Onset: 07-15-2024 Episodic Other aftercare (20 sources) Long-term current use of anticoagulant; Translations: [intermission coordinator (current) use of anticoagulants] Onset: 01-04-2021 02-04-2021 Episodic Other aftercare (10 sources) Patient encounter status; Translations: [Encounter for therapeutic drug level monitoring] Onset: 07-02-2012 Resolved: 03-27-2014 03-27-2014 Episodic Other liver diseases (10 sources) Jaundice; Translations: [Unspecified jaundice] Onset: 04-03-2012 Resolved: 12-13-2013 12-13-2013 Episodic Other nervous system disorders (19 sources) Acute postoperative pain; Translations: [Other acute postprocedural pain] Onset: 01-31-2021 02-04-2021 Episodic Other screening for suspected conditions (not mental disorders or infectious disease) (1 source) Encounter for screening for lipoid disorders; Translations: [Screening for lipoid disorders] Onset: 07-15-2024 Episodic Pulmonary heart disease (20 sources) Pulmonary embolism; Translations: [Other pulmonary embolism without acute cor pulmonale] Onset: 07-02-2012 Resolved: 10-28-2016 04-28-2017 Episodic Residual codes; unclassified (1 source) Decreased libido; Translations: [Decreased libido] Onset: 07-15-2024 Episodic Results Test Name Value Interpretation Reference Range Facility [facility] 05-30-2025 [facility] Visit (SP) Office (H EMAWS) CHELA HERRERA ([id number]) 1950 M Date Time Provider Department 05/30/25 1:30 PM NILAM HARRINGTON During your visit today, we recorded the following information about you: Temperature Pulse Blood pressure Weight 98.5 degrees 70/minute 137/84 90.1 kg Nilam Harrington APRN.TRANSIT CLERK 05/30/2025 2:03 PM Signed Chief Complaint Patient presents with: Established Patient HPI: Chela Herrera is a 75 year old male who presents here today for follow up pancreas cancer. Per Dr. Kruse's previous note: H/o significant for DVT. He underwent evaluation for dyspepsia characterized by reflux and excessive belching along with cramping in the upper abdomen in the spring. He also developed dark urine and light-colored stools and was found to have elevated LFTs. Ultimately underwent a pylorus preserving pancreaticoduodenectomy on 06/03/2012. Previous therapy: 1) Gemcitabine x1 cycle followed by concurrent 5-FU/radiation (completed 09/23/2012). Gemcitabine x1 cycle. He underwent a CT scan of the chest as well as a CT pancreas because of an increase in CA 19-9 earlier this year. The value was still within the normal range but the highest is been since his surgery and up to 10 units from the previous year. CT pancreas on 11/08/2020 revealed an atrophic pancreatic body and tail with few calcifications in the pancreatic tail. There was a small amount of air in the pancreatic duct which was mildly dilated. No other abnormality except for a few nonobstructing right renal calculi less than or equal to 3 mm in diameter. There was also a 1.5 cm right renal cortical cyst. CT of the chest on 11/08/2020 showed within the posterior right upper lobe there was a mildly lobulated slightly spiculated mass measuring 1.6 x 1.5 x 1.1 cm. There were superior mediastinal lymph nodes observed the largest of which was to the right of the origin of the brachiocephalic artery measuring about 1 cm in diameter. There were multiple nonenlarged middle mediastinal lymph nodes. Patient underwent CT-guided fine-needle aspiration of the lung nodule on 11/27/2020. Pathology: FINAL DIAGNOSIS A. RIGHT UPPER LOBE LUNG, FINE NEEDLE ASPIRATE (THINPREP,SMEARS AND CELL BLOCK) Positive for malignant cells. Adenocarcinoma with mucinous features. COMMENT Intracytoplasmic mucin in present in many of the malignant cells. The prior pancreatic adenocarcinoma ([id number]) was reviewed and focally shows morphologic similarity to the current lesion, but the morphology is not specific as to the sight of origin. Scant tumor is present in the cell block. TTF-1 immunohistochemistry will be attempted and reported in an addendum. Material will be also be submitted for molecular studies. Insufficient tissue for TTF-1 testing. PET 12/18/2020: NECK: Physiologic uptake seen in the visualized brain, parapharyngeal soft tissues, base of tongue, vocal cords, and salivary glands. No hypermetabolic cervical lymphadenopathy or hypermetabolic masses. No focal hypermetabolic thyroid lesion. CHEST: Physiologic uptake in the heart and mediastinal blood pool. Lungs, tracheobronchial tree and pleura: A hypermetabolic nodule, measuring 1.4 x 1.4 cm, having maximum SUV of is noted in the posterior aspect of the right upper lobe, having maximum SUV of 4.5. Small area of cavitation is noted within this nodule. Small amount of patchy opacification is noted in the posterior basilar portion of the right lower lobe with minimal FDG uptake with maximum SUV of 1.9, nonspecific, however likely of infectious/inflammatory etiology or sequela of previous infectious/inflammatory etiology. Please note that PET/CT is not sensitive for pulmonary nodules less than 8 mm. Mediastinum and Lymph nodes: Few small mildly hypermetabolic right paratracheal lymph notes with maximum SUV of 4.1; largest measuring approximately 14 x 10 mm. Small prevascular lymph nodes with maximum SUV of 4. Mild FDG uptake is identified in the right hilar region, with maximum SUV of 3.6. Chest wall and axilla: No hypermetabolic lesions. ABDOMEN AND PELVIS: Physiologic uptake seen in the and GI tracts. Liver: No hypermetabolic mass. Small amount of pneumobilia is noted. Biliary: Gallbladder is not identified. Intrahepatic biliary millimeter area, compatible with pneumobilia. Spleen: No hypermetabolic mass. No splenomegaly. Pancreas: Atrophic pancreatic body and tail with few calcifications in the region of the pancreatic tail. Patient is status post resection of the proximal pancreas/pancreatic head.. Adrenals: No hypermetabolic lesions. Kidneys: No right or left hydronephrosis. Tiny calcifications in the right kidney, likely a nonobstructing renal calculi.. GI tract: No dila (more content not included)... Normal [facility] CBC W Auto Differential pane l (Bld)on 05-17-2025 Basophils (Bld) [#/Vol] 0.03 10*3/uL Normal <0.11 [facility] Comment on above: Order Comment: Speci men Type: BLOOD SPECIMEN Ordering Facility: [facility] Address: [address] [place] [address] Performed By: #### T FTEST #### [facility] CLIA [id number] [address] [place] [address] Basophils/100 WBC (Bld) 0.6 % Normal [facility] Comment on above: Order Comment: Speci men Type: BLOOD SPECIMEN Ordering Facility: [facility] Address: [address] [place] [address] Performed By: #### T FTEST #### [facility] CLIA [id number] [address] [place] [address] Differential cell count method Nom (Bld) Auto Normal [facility] Comment on above: Order Comment: Speci men Type: BLOOD SPECIMEN Ordering Facility: [facility] Address: [address] [place] [address] Performed By: #### T FTEST #### [facility] CLIA [id number] [address] [place] [address] Eosinophils (Bld) [#/Vol] 0.12 10*3/uL Normal <0.46 [facility] Comment on above: Order Comment: Speci men Type: BLOOD SPECIMEN Ordering Facility: [facility] Address: [address] [place] [address] Performed By: #### T FTEST #### [facility] CLIA [id number] [address] [place] [address] Eosinophils/100 WBC (Bld) 2.5 % Normal [facility] Comment on above: Order Comment: Speci men Type: BLOOD SPECIMEN Ordering Facility: [facility] Address: [address] [place] [address] Performed By: #### T FTEST #### [facility] CLIA [id number] [address] [place] [address] Erythrocyte distribution width (RBC) [Ratio] 13.5 % Normal 11.5-15.0 [facility] Comment on above: Order Comment: Speci men Type: BLOOD SPECIMEN Ordering Facility: [facility] Address: [address] [place] [address] Performed By: #### T FTEST #### [facility] CLIA [id number] [address] [place] [address] Hematocrit (Bld) [Volume fraction] 42.4 % Normal 39.0-51.0 [facility] Comment on above: Order Comment: Speci men Type: BLOOD SPECIMEN Ordering Facility: [facility] Address: [address] [place] [address] Performed By: #### T FTEST #### [facility] CLIA [id number] [address] [place] [address] Hemoglobin (Bld) [Mass/Vol] 14.5 g/dL Normal 13.0-17.0 [facility] Comment on above: Order Comment: Speci men Type: BLOOD SPECIMEN Ordering Facility: [facility] Address: [address] [place] [address] Performed By: #### T FTEST #### [facility] CLIA [id number] [address] [place] [address] Immature granulocytes (Bld) [#/Vol] 10*3/uL Normal <0.10 [facility] Comment on above: Order Comment: Speci men Type: BLOOD SPECIMEN Ordering Facility: [facility] Address: [address] [facility] [place] [address] Performed By: #### T FTEST #### [facility] CLIA [id number] [address] [place] [address] Immature granulocytes/100 WBC (Bld) 0.0 % Normal [facility] Comment on above: Order Comment: Speci men Type: BLOOD SPECIMEN Ordering Facility: [facility] Address: [address] [facility] [place] [address] Performed By: #### T FTEST #### [facility] CLIA [id number] [address] [place] [address] Lymphocytes (Bld) [#/Vol] 1.72 10*3/uL Normal 1.00-4.00 [facility] Comment on above: Order Comment: Speci men Type: BLOOD SPECIMEN Ordering Facility: [facility] Address: [address] [facility] [place] [address] Performed By: #### T FTEST #### [facility] CLIA [id number] [address] [place] [address] Lymphocytes/100 WBC (Bld) 36.1 % Normal [facility] Comment on above: Order Comment: Speci men Type: BLOOD SPECIMEN Ordering Facility: [facility] Address: [address] [facility] [place] [address] Performed By: #### T FTEST #### [facility] CLIA [id number] [address] [place] [address] MCH (RBC) [Entitic mass] 31.0 pg Normal 26.0-34.0 [facility] Comment on above: Order Comment: Speci men Type: BLOOD SPECIMEN Ordering Facility: [facility] Address: [address] [facility] [place] [address] Performed By: #### T FTEST #### [facility] CLIA [id number] [address] [place] [address] MCHC (RBC) [Mass/Vol] 34.2 g/dL Normal 30.5-36.0 [facility] Comment on above: Order Comment: Speci men Type: BLOOD SPECIMEN Ordering Facility: [facility] Address: [address] [place] [address] Performed By: #### T FTEST #### [facility] CLIA [id number] [address] [place] [address] MCV (RBC) [Entitic vol] 90.8 fL Normal 80.0-100.0 [facility] Comment on above: Order Comment: Speci men Type: BLOOD SPECIMEN Ordering Facility: [facility] Address: [address] [place] [address] Performed By: #### T FTEST #### [facility] CLIA [id number] [address] [place] [address] Monocytes (Bld) [#/Vol] 0.46 10*3/uL Normal <0.87 [facility] Comment on above: Order Comment: Speci men Type: BLOOD SPECIMEN Ordering Facility: [facility] Address: [address] [place] [address] Performed By: #### T FTEST #### [facility] CLIA [id number] [address] [place] [address] Monocytes/100 WBC (Bld) 9.6 % Normal [facility] Comment on above: Order Comment: Speci men Type: BLOOD SPECIMEN Ordering Facility: [facility] Address: [address] [place] [address] Performed By: #### T FTEST #### [facility] CLIA [id number] [address] [place] [address] Neutrophils (Bld) [#/Vol] 2.44 10*3/uL Normal 1.45-7.50 [facility] Comment on above: Order Comment: Speci men Type: BLOOD SPECIMEN Ordering Facility: [facility] Address: [address] [place] [address] Performed By: #### T FTEST #### [facility] CLIA [id number] [address] [place] [address] Neutrophils/100 WBC (Bld) 51.2 % Normal [facility] Comment on above: Order Comment: Speci men Type: BLOOD SPECIMEN Ordering Facility: [facility] Address: [address] [facility] [place] [address] Performed By: #### T FTEST #### [facility] CLIA [id number] [address] [place] [address] Nucleated RBC (Bld) [#/Vol] 10*3/uL Normal <0.01 [facility] Comment on above: Order Comment: Speci men Type: BLOOD SPECIMEN Ordering Facility: [facility] Address: [address] [place] [address] Performed By: #### T FTEST #### [facility] CLIA [id number] [address] [place] [address] Nucleated RBC/100 WBC (Bld) [Ratio] 0.0 /100 WBC Normal [facility] Comment on above: Order Comment: Speci men Type: BLOOD SPECIMEN Ordering Facility: [facility] Address: [address] [place] [address] Performed By: #### T FTEST #### [facility] CLIA [id number] [address] [place] [address] Platelet mean volume (Bld) [Entitic vol] 8.8 fL Low 9.0-12.7 [facility] Comment on above: Order Comment: Speci men Type: BLOOD SPECIMEN Ordering Facility: [facility] Address: [address] [place] [address] Performed By: #### T FTEST #### [facility] CLIA [id number] [address] [place] [address] Platelets (Bld) [#/Vol] 212 10*3/uL Normal 150-400 [facility] Comment on above: Order Comment: Speci men Type: BLOOD SPECIMEN Ordering Facility: [facility] Address: [address] [place] [address] Performed By: #### T FTEST #### [facility] CLIA [id number] [address] [place] [address] RBC (Bld) [#/Vol] 4.67 10*6/uL Normal 4.20-6.00 [facility] Comment on above: Order Comment: Speci men Type: BLOOD SPECIMEN Ordering Facility: [facility] Address: [address] [place] [address] Performed By: #### T FTEST #### [facility] CLIA [id number] [address] [place] [address] WBC (Bld) [#/Vol] 4.77 10*3/uL Normal 3.70-11.00 [facility] Comment on above: Order Comment: Speci men Type: BLOOD SPECIMEN Ordering Facility: [facility] Address: [address] [place] [address] Performed By: #### T FTEST #### [facility] CLIA [id number] [address] [place] [address] CT ABD/PEL W IVCONon 025 CT ABD/PEL W IVCON * * *Final Report* * * DATE OF EXAM: May 17 2025 9:51AM [facility] 0530 - CT ABD/PEL W IVCON / PROCEDURE REASON: multiple diagnoses * * * * Physician Interpretation * * * * EXAMINATION: CT CHEST WITH IV CONTRAST and CT ABDOMEN AND PELVIS WITH IV CONTRAST CLINICAL HISTORY: Pancreatic cancer, monitor (accession [id number]), Metastatic disease evaluation (accession [id number]) TECHNIQUE: CT of the chest from the thoracic inlet to the upper abdomen was performed following IV contrast. CT of the abdomen and pelvis was performed using standard technique, scanning from just above the dome of the diaphragm to the symphysis pubis. MQ: CTCAPW_4 Contrast: IV: 100 ml of Omnipaque 350 Oral: 10 ml of Omni 240 10-25ml diluted with water CT Radiation dose: Integrated Dose-length product (DLP) for this visit = 920 mGy*cm. CT Dose Reduction Employed: Automated exposure control(AEC) and iterative recon COMPARISON: 11/08/2024 RESULT: Lines, tubes, and devices: None. Lung parenchyma, pleura and airways: Postsurgical changes of RIGHT upper lobectomy. Similar architectural distortion of the middle lobe and periphery of the RIGHT lower lobe. Stable 3 mm fissural nodule along the fissure between the middle and RIGHT lower lobes on series 9 image 77. A previously 7 4 x 2 mm middle lobe nodule as not appreciated on the current exam. No new, enlarging, or suspicious pulmonary nodules. Mediastinum and imaged lower neck: Mild burden of coronary artery calcifications. No lymphadenopathy in the chest. Liver/Biliary: Postsurgical changes of hepaticojejunostomy with expected pneumobilia. No focal hepatic lesion. Pancreas and Spleen: Postsurgical changes of pancreaticoduodenal ectomy with severe atrophy of the remnant pancreatic body and tail and dystrophic calcifications. Kidneys and Adrenals: Multiple bilateral nonobstructing nephroliths, largest measuring 6 mm in the interpolar RIGHT kidney. No hydronephrosis. Mild diffuse bilateral renal cortical thinning similar to prior. GI tract/Mesentery/Peritoneum: No bowel wall thickening or dilated bowel. Retroperitoneum and Lymph Nodes: No lymphadenopathy. Vasculature: Mild aortic and branch vessel atherosclerosis.. Narrowing at the origin of the celiac artery is unchanged from prior and likely due to chronic mass effect from the median arcuate ligament. Pelvis: Normal. Bones/Soft Tissues: Degenerative changes of the spine and hips. Localizer images: No significant findings. IMPRESSION: 1. No evidence of recurrent or metastatic malignancy in the chest, abdomen, or pelvis. 2. Bilateral nonobstructing nephroliths. It Consultant: ARIA Transcribe Date/Time: May 24 2025 2:33P Dictated by : AREN RICHARDS MD This examination was interpreted and the report reviewed and electronically signed by: AREN RICHARDS MD on May 24 2025 2:45PM EST [id number] Normal [facility] CT CHEST W IVCONon CT CHEST W IVCON * * *Final Report* * * DATE OF EXAM: May 17 2025 9:51AM [facility] 0539 - CT CHEST W IVCON / PROCEDURE REASON: multiple diagnoses * * * * Physician Interpretation * * * * EXAMINATION: CT CHEST WITH IV CONTRAST and CT ABDOMEN AND PELVIS WITH IV CONTRAST CLINICAL HISTORY: Pancreatic cancer, monitor (accession [id number]), Metastatic disease evaluation (accession [id number]) TECHNIQUE: CT of the chest from the thoracic inlet to the upper abdomen was performed following IV contrast. CT of the abdomen and pelvis was performed using standard technique, scanning from just above the dome of the diaphragm to the symphysis pubis. MQ: CTCAPW_4 Contrast: IV: 100 ml of Omnipaque 350 Oral: 10 ml of Omni 240 10-25ml diluted with water CT Radiation dose: Integrated Dose-length product (DLP) for this visit = 920 mGy*cm. CT Dose Reduction Employed: Automated exposure control(AEC) and iterative recon COMPARISON: 11/08/2024 RESULT: Lines, tubes, and devices: None. Lung parenchyma, pleura and airways: Postsurgical changes of RIGHT upper lobectomy. Similar architectural distortion of the middle lobe and periphery of the RIGHT lower lobe. Stable 3 mm fissural nodule along the fissure between the middle and RIGHT lower lobes on series 9 image 77. A previously 7 4 x 2 mm middle lobe nodule as not appreciated on the current exam. No new, enlarging, or suspicious pulmonary nodules. Mediastinum and imaged lower neck: Mild burden of coronary artery calcifications. No lymphadenopathy in the chest. Liver/Biliary: Postsurgical changes of hepaticojejunostomy with expected pneumobilia. No focal hepatic lesion. Pancreas and Spleen: Postsurgical changes of pancreaticoduodenal ectomy with severe atrophy of the remnant pancreatic body and tail and dystrophic calcifications. Kidneys and Adrenals: Multiple bilateral nonobstructing nephroliths, largest measuring 6 mm in the interpolar RIGHT kidney. No hydronephrosis. Mild diffuse bilateral renal cortical thinning similar to prior. GI tract/Mesentery/Peritoneum: No bowel wall thickening or dilated bowel. Retroperitoneum and Lymph Nodes: No lymphadenopathy. Vasculature: Mild aortic and branch vessel atherosclerosis.. Narrowing at the origin of the celiac artery is unchanged from prior and likely due to chronic mass effect from the median arcuate ligament. Pelvis: Normal. Bones/Soft Tissues: Degenerative changes of the spine and hips. Localizer images: No significant findings. IMPRESSION: 1. No evidence of recurrent or metastatic malignancy in the chest, abdomen, or pelvis. 2. Bilateral nonobstructing nephroliths. It Consultant: ARIA Transcribe Date/Time: May 24 2025 2:33P Dictated by : AREN RICHARDS MD This examination was interpreted and the report reviewed and electronically signed by: AREN RICHARDS MD on May 24 2025 2:45PM EST [id number] Normal [facility] Cancer Ag19-9 SerPl-aCncon 0 05-17-2025 Cancer Ag 19-9 Qn 9.0 [arb'U]/mL Normal <36.0 [facility] Comment on above: Order Comment: Speci men Type: BLOOD SPECIMEN Ordering Facility: [facility] Address: [address] [place] [address] Result Comment: [facility] er antigen 19-9 test is used as an aid in monitoring response to treatment or recurrence in patients with established pancreatic, hepatobiliary, or gastrointestinal malignancies. Clinical correlation is required. The CA 19-9 Antigen test was performed using the [employer] DXI paramagnetic particle chemiluminescent immunoassay method. Results obtained with different assay methods or kits cannot be used interchangeably. Performed By: #### T FTEST #### [facility] CLIA [id number] [address] [place] [address] Comprehensive metabolic 2000 panelon 05-17-2025 Albumin [Mass/Vol] 4.1 g/dL Normal 3.9-4.9 [facility] Comment on above: Order Comment: Speci men Type: BLOOD SPECIMEN Ordering Facility: [facility] Address: [address] [place] [address] Performed By: #### T FTEST #### [facility] CLIA [id number] [address] [place] [address] ALP [Catalytic activity/Vol] 85 U/L Normal 38-113 [facility] Comment on above: Order Comment: Speci men Type: BLOOD SPECIMEN Ordering Facility: [facility] Address: [address] [place] [address] Performed By: #### T FTEST #### [facility] CLIA [id number] [address] [place] [address] ALT [Catalytic activity/Vol] 26 U/L Normal 10-54 [facility] Comment on above: Order Comment: Speci men Type: BLOOD SPECIMEN Ordering Facility: [facility] Address: [address], [place] [address] Performed By: #### T FTEST #### [facility] CLIA [id number] [address] [place] [address] Anion gap [Moles/Vol] 10 mmol/L Normal 8-15 [facility] Comment on above: Order Comment: Speci men Type: BLOOD SPECIMEN Ordering Facility: [facility] Address: [address], [place] [address] Performed By: #### T FTEST #### [facility] CLIA [id number] [address] [place] [address] AST [Catalytic activity/Vol] 24 U/L Normal 14-40 [facility] Comment on above: Order Comment: Speci men Type: BLOOD SPECIMEN Ordering Facility: [facility] Address: [address] [place] [address] Performed By: #### T FTEST #### [facility] CLIA [id number] [address] [place] [address] Bilirubin [Mass/Vol] 0.3 mg/dL Normal 0.2-1.3 [facility] Comment on above: Order Comment: Speci men Type: BLOOD SPECIMEN Ordering Facility: [facility] Address: [address], [place] [address] Performed By: #### T FTEST #### [facility] CLIA [id number] [address] [place] [address] Calcium [Mass/Vol] 9.3 mg/dL Normal 8.5-10.2 [facility] Comment on above: Order Comment: Speci men Type: BLOOD SPECIMEN Ordering Facility: [facility] Address: [address], [place] [address] Performed By: #### T FTEST #### [facility] CLIA [id number] [address] [place] [address] Chloride [Moles/Vol] 109 mmol/L High 98-107 [facility] Comment on above: Order Comment: Speci men Type: BLOOD SPECIMEN Ordering Facility: [facility] Address: [address], [place] [address] Performed By: #### T FTEST #### [facility] CLIA [id number] [address] [place] [address] CO2 [Moles/Vol] 22 mmol/L Normal 22-30 [facility] Comment on above: Order Comment: Speci men Type: BLOOD SPECIMEN Ordering Facility: [facility] Address: [address], [place] [address] Performed By: #### T FTEST #### [facility] CLIA [id number] [address] [place] [address] Creatinine [Mass/Vol] 1.04 mg/dL Normal 0.73-1.22 [facility] Comment on above: Order Comment: Speci men Type: BLOOD SPECIMEN Ordering Facility: [facility] Address: [address], [place] [address] Performed By: #### T FTEST #### [facility] CLIA [id number] [address] [place] [address] Creatinine and Glomerular filtration rate.predicted panel (S/P/Bld) 76 mL/min/1.73m??? Normal >=60 [facility] Comment on above: Order Comment: Speci men Type: BLOOD SPECIMEN Ordering Facility: [facility] Address: [address], [place] [address] Result Comment: Stephanie mated Glomerular Filtration Rate (eGFR) is calculated using the 2020 CKD-EPI creatinine equation. This equation utilizes serum creatinine, sex, and age as parameters. The creatinine assay has traceable calibration to isotope dilution-mass spectrometry. Refer to KDIGO guidelines for clinical interpretation. In patients with unstable renal function, e.g. those with acute kidney injury, the eGFR may not accurately reflect actual GFR. Performed By: #### T FTEST #### [facility] CLIA [id number] [address] [place] [address] Glucose [Mass/Vol] 123 mg/dL High 74-99 [facility] Comment on above: Order Comment: Speci men Type: BLOOD SPECIMEN Ordering Facility: [facility] Address: [address] [place] [address] Result Comment: The [place] [employer] (ADA) provides guidance for cutoff values for fasting glucose and random glucose. The ADA defines fasting as no caloric intake for at least 8 hours. Fasting plasma glucose results between 100 to 125 mg/dL indicate increased risk for diabetes (prediabetes). Fasting plasma glucose results greater than or equal to 126 mg/dL meet the criteria for diagnosis of diabetes. In the absence of unequivocal hyperglycemia, results should be confirmed by repeat testing. In a patient with classic symptoms of hyperglycemia or hyperglycemic crisis, random plasma glucose results greater than or equal to 200 mg/dL meet the criteria for diagnosis of diabetes. Reference: Standards of Medical Care in Diabetes 2016, [place] [employer]. Diabetes Care. 2016.39(Suppl 1). Performed By: #### T FTEST #### [facility] CLIA [id number] [address] [place] [address] Potassium [Moles/Vol] 4.4 mmol/L Normal 3.7-5.1 [facility] Comment on above: Order Comment: Speci men Type: BLOOD SPECIMEN Ordering Facility: [facility] Address: [address] [place] [address] Performed By: #### T FTEST #### [facility] CLIA [id number] [address] [place] [address] Protein [Mass/Vol] 6.8 g/dL Normal 6.3-8.0 [facility] Comment on above: Order Comment: Speci men Type: BLOOD SPECIMEN Ordering Facility: [facility] Address: [address] [facility] [place] [address] Performed By: #### T FTEST #### [facility] CLIA [id number] [address] [place] [address] Sodium [Moles/Vol] 141 mmol/L Normal 136-144 [facility] Comment on above: Order Comment: Speci men Type: BLOOD SPECIMEN Ordering Facility: [facility] Address: [address] [place] [address] Performed By: #### T FTEST #### [facility] CLIA [id number] [address] [place] [address] Urea nitrogen [Mass/Vol] 19 mg/dL Normal 9-24 [facility] Comment on above: Order Comment: Speci men Type: BLOOD SPECIMEN Ordering Facility: [facility] Address: [address], [place] [address] Performed By: #### T FTEST #### [facility] CLIA [id number] [address] [place] [address] Cholesterolon 01-02-2025 Cholesterol [Mass/Vol] 145 mg/dL Normal 200 [facility] Comment on above: Order Comment: Order Date: 07/26/24 Order Info: 2093-01 - CHOL Order Info: 2856-1 - PSA Result Comment: <200 mg/dL Desirable 200-240 mg/dL Borderline >240 mg/dL High Risk Performed By: #### L 501.9910, L501.4900 #### [facility] [address] [place], [address] PSA,Total - Annual Screenon 01-02-2025 PSA,TOT SCREEN 3.65 ng/mL Normal 0.00-4.00 [facility] Comment on above: Order Comment: Order Date: 07/26/24 Order Info: 2093-01 - CHOL Order Info: 2857-1 - PSA Result Comment: This test was performed using the TPSA assay method for the [employer] chemistry system. Values obtained with different assay methods cannot be used interchangably. When changing PSA assays in the course of monitoring a patient, additional sequential testing should be carried out to confirm baseline values. Performed By: #### L 501.9910, L501.4900 #### [facility] [address] [place], [address] CNOVSPon 11-17-2024 OVS Visit (SP) Office (H EMAWS) CHELA HERRERA ([id number]) 1950 M Date Time Provider Department 11/17/24 8:30 AM PB KRUSE HEMKATHERINE During your visit today, we recorded the following information about you: Temperature Pulse Blood pressure Weight 98.6 degrees 70/minute 147/79 92.5 kg Height 1.81 m Pb Kruse, DO 11/17/2024 8:59 AM Signed iagnosis: 1) Stage IIB pancreas cancer. 2) Recurrent VTE. HPI: The patient is a 74 year-old male who had a past medical history significant for DVT. He underwent evaluation for dyspepsia characterized by reflux and excessive belching along with cramping in the upper abdomen in the spring. He also developed dark urine and light-colored stools and was found to have elevated LFTs. Ultimately underwent a pylorus preserving pancreaticoduodenectomy on 06/03/2012. Previous therapy: 1) Gemcitabine x1 cycle followed by concurrent 5-FU/radiation (completed 09/23/2012). Gemcitabine x1 cycle. He underwent a CT scan of the chest as well as a CT pancreas because of an increase in CA 19-9 earlier this year. The value was still within the normal range but the highest is been since his surgery and up to 10 units from the previous year. CT pancreas on 11/08/2020 revealed an atrophic pancreatic body and tail with few calcifications in the pancreatic tail. There was a small amount of air in the pancreatic duct which was mildly dilated. No other abnormality except for a few nonobstructing right renal calculi less than or equal to 3 mm in diameter. There was also a 1.5 cm right renal cortical cyst. CT of the chest on 11/08/2020 showed within the posterior right upper lobe there was a mildly lobulated slightly spiculated mass measuring 1.6 x 1.5 x 1.1 cm. There were superior mediastinal lymph nodes observed the largest of which was to the right of the origin of the brachiocephalic artery measuring about 1 cm in diameter. There were multiple nonenlarged middle mediastinal lymph nodes. Patient underwent CT-guided fine-needle aspiration of the lung nodule on 11/27/2020. Pathology: FINAL DIAGNOSIS A. RIGHT UPPER LOBE LUNG, FINE NEEDLE ASPIRATE (THINPREP,SMEARS AND CELL BLOCK) Positive for malignant cells. Adenocarcinoma with mucinous features. COMMENT Intracytoplasmic mucin in present in many of the malignant cells. The prior pancreatic adenocarcinoma ([id number]) was reviewed and focally shows morphologic similarity to the current lesion, but the morphology is not specific as to the sight of origin. Scant tumor is present in the cell block. TTF-1 immunohistochemistry will be attempted and reported in an addendum. Material will be also be submitted for molecular studies. Insufficient tissue for TTF-1 testing. PET 12/18/2020: NECK: Physiologic uptake seen in the visualized brain, parapharyngeal soft tissues, base of tongue, vocal cords, and salivary glands. No hypermetabolic cervical lymphadenopathy or hypermetabolic masses. No focal hypermetabolic thyroid lesion. CHEST: Physiologic uptake in the heart and mediastinal blood pool. Lungs, tracheobronchial tree and pleura: A hypermetabolic nodule, measuring 1.4 x 1.4 cm, having maximum SUV of is noted in the posterior aspect of the right upper lobe, having maximum SUV of 4.5. Small area of cavitation is noted within this nodule. Small amount of patchy opacification is noted in the posterior basilar portion of the right lower lobe with minimal FDG uptake with maximum SUV of 1.9, nonspecific, however likely of infectious/inflammatory etiology or sequela of previous infectious/inflammatory etiology. Please note that PET/CT is not sensitive for pulmonary nodules less than 8 mm. Mediastinum and Lymph nodes: Few small mildly hypermetabolic right paratracheal lymph notes with maximum SUV of 4.1; largest measuring approximately 14 x 10 mm. Small prevascular lymph nodes with maximum SUV of 4. Mild FDG uptake is identified in the right hilar region, with maximum SUV of 3.6. Chest wall and axilla: No hypermetabolic lesions. ABDOMEN AND PELVIS: Physiologic uptake seen in the and GI tracts. Liver: No hypermetabolic mass. Small amount of pneumobilia is noted. Biliary: Gallbladder is not identified. Intrahepatic biliary millimeter area, compatible with pneumobilia. Spleen: No hypermetabolic mass. No splenomegaly. Pancreas: Atrophic pancreatic body and tail with few calcifications in the region of the pancreatic tail. Patient is status post resection of the proximal pancreas/pancreatic head.. Adrenals: No hypermetabolic lesions. Kidneys: No right or left hydronephrosis. Tiny calcifications in the right kidney, likely a nonobstructing renal calculi.. GI tract: No dilation or wall thickening. The appendix is normal in size and caliber (more content not included)... Normal [facility] CBC W Auto Differential pane l (Bld)on 11-08-2024 Basophils (Bld) [#/Vol] 0.03 10*3/uL Normal <0.11 [facility] Comment on above: Order Comment: Speci men Type: BLOOD SPECIMEN Ordering Facility: [facility] Address: [address] [place] [address] Performed By: #### 5 7021-8 #### [facility] CLIA [id number] [address] [place] [address] [place] Basophils/100 WBC (Bld) 0.6 % Normal [facility] Comment on above: Order Comment: Speci men Type: BLOOD SPECIMEN Ordering Facility: [facility] Address: [address] [place] [address] Performed By: #### 5 7021-8 #### [facility] CLIA [id number] [address] [place] [address] [place] Differential cell count method Nom (Bld) Auto Normal [facility] Comment on above: Order Comment: Speci men Type: BLOOD SPECIMEN Ordering Facility: [facility] Address: [address] [place] [address] Performed By: #### 5 7021-8 #### [facility] CLIA [id number] [address] [place] [address] [place] Eosinophils (Bld) [#/Vol] 0.13 10*3/uL Normal <0.46 [facility] Comment on above: Order Comment: Speci men Type: BLOOD SPECIMEN Ordering Facility: [facility] Address: [address] [place] [address] Performed By: #### 5 7021-8 #### [facility] CLIA [id number] [address] [place] [address] [place] Eosinophils/100 WBC (Bld) 2.5 % Normal [facility] Comment on above: Order Comment: Speci men Type: BLOOD SPECIMEN Ordering Facility: [facility] Address: [address] [place], [place] [address] Performed By: #### 5 7021-8 #### [facility] CLIA [id number] [address] [place] [address] [place] Erythrocyte distribution width (RBC) [Ratio] 13.8 % Normal 11.5-15.0 [facility] Comment on above: Order Comment: Speci men Type: BLOOD SPECIMEN Ordering Facility: [facility] Address: [address] [place] [address] Performed By: #### 5 7021-8 #### [id number] [address] [place] [address] [place] Hematocrit (Bld) [Volume fraction] 44.6 % Normal 39.0-51.0 [facility] Comment on above: Order Comment: Speci men Type: BLOOD SPECIMEN Ordering Facility: [facility] Address: [address] [place] [address] Performed By: #### 5 7021-8 #### [facility] CLIA [id number] [address] [place] [address] [place] Hemoglobin (Bld) [Mass/Vol] 15.1 g/dL Normal 13.0-17.0 [facility] Comment on above: Order Comment: Speci men Type: BLOOD SPECIMEN Ordering Facility: [facility] Address: [address] [place], [place] [address] Performed By: #### 5 7021-8 #### [facility] CLIA [id number] [address] [place] [address] [place] Immature granulocytes (Bld) [#/Vol] 10*3/uL Normal <0.10 [facility] Comment on above: Order Comment: Speci men Type: BLOOD SPECIMEN Ordering Facility: [facility] Address: [address] [place] [address] Performed By: #### 5 7021-8 #### [facility] CLIA [id number] [address] [place] [address] [place] Immature granulocytes/100 WBC (Bld) 0.4 % Normal [facility] Comment on above: Order Comment: Speci men Type: BLOOD SPECIMEN Ordering Facility: [facility] Address: [address] [place] [address] Performed By: #### 5 7021-8 #### [facility] CLIA [id number] [address] [place] [address] [place] Lymphocytes (Bld) [#/Vol] 1.79 10*3/uL Normal 1.00-4.00 [facility] Comment on above: Order Comment: Speci men Type: BLOOD SPECIMEN Ordering Facility: [facility] Address: [address] [place] [address] Performed By: #### 5 7021-8 #### [facility] CLIA [id number] [address] [place] [address] [place] Lymphocytes/100 WBC (Bld) 34.7 % Normal [facility] Comment on above: Order Comment: Speci men Type: BLOOD SPECIMEN Ordering Facility: [facility] Address: [address] [place] [address] Performed By: #### 5 7021-8 #### [facility] CLIA [id number] [address] [place] [address] [place] MCH (RBC) [Entitic mass] 30.6 pg Normal 26.0-34.0 [facility] Comment on above: Order Comment: Speci men Type: BLOOD SPECIMEN Ordering Facility: [facility] Address: [address] [place] [address] Performed By: #### 5 7021-8 #### [facility] CLIA [id number] [address] [place] [address] [place] MCHC (RBC) [Mass/Vol] 33.9 g/dL Normal 30.5-36.0 [facility] Comment on above: Order Comment: Speci men Type: BLOOD SPECIMEN Ordering Facility: [facility] Address: [address] [place] [address] Performed By: #### 5 7021-8 #### [facility] CLIA [id number] [address] [place] [address] [place] MCV (RBC) [Entitic vol] 90.3 fL Normal 80.0-100.0 [facility] Comment on above: Order Comment: Speci men Type: BLOOD SPECIMEN Ordering Facility: [facility] Address: [address] [place] [address] Performed By: #### 5 7021-8 #### [facility] CLIA [id number] [address] [place] [address] [place] Monocytes (Bld) [#/Vol] 0.54 10*3/uL Normal <0.87 [facility] Comment on above: Order Comment: Speci men Type: BLOOD SPECIMEN Ordering Facility: [facility] Address: [address] [place] [address] Performed By: #### 5 7021-8 #### [facility] CLIA [id number] [address] [place] [address] [place] Monocytes/100 WBC (Bld) 10.5 % Normal [facility] Comment on above: Order Comment: Speci men Type: BLOOD SPECIMEN Ordering Facility: [facility] Address: [address] [place] [address] Performed By: #### 5 7021-8 #### [facility] CLIA [id number] [address] [place] [address] [place] Neutrophils (Bld) [#/Vol] 2.65 10*3/uL Normal 1.45-7.50 [facility] Comment on above: Order Comment: Speci men Type: BLOOD SPECIMEN Ordering Facility: [facility] Address: [address] [place] [address] Performed By: #### 5 7021-8 #### [facility] CLIA [id number] [address] [place] [address] [place] Neutrophils/100 WBC (Bld) 51.3 % Normal [facility] Comment on above: Order Comment: Speci men Type: BLOOD SPECIMEN Ordering Facility: [facility] Address: [address] [place] [address] Performed By: #### 5 7021-8 #### [facility] CLIA [id number] [address] [place] [address] [place] Nucleated RBC (Bld) [#/Vol] 10*3/uL Normal <0.01 [facility] Comment on above: Order Comment: Speci men Type: BLOOD SPECIMEN Ordering Facility: [facility] Address: [address] [place] [address] Performed By: #### 5 7021-8 #### [facility] CLIA [id number] [address] [place] [address] [place] Nucleated RBC/100 WBC (Bld) [Ratio] 0.0 /100 WBC Normal [facility] Comment on above: Order Comment: Speci men Type: BLOOD SPECIMEN Ordering Facility: [facility] Address: [address] [place] [address] Performed By: #### 5 7021-8 #### [facility] CLIA [id number] [address] [place] [address] [place] Platelet mean volume (Bld) [Entitic vol] 8.6 fL Low 9.0-12.7 [facility] Comment on above: Order Comment: Speci men Type: BLOOD SPECIMEN Ordering Facility: [facility] Address: [address] [place] [address] Performed By: #### 5 7021-8 #### [facility] CLIA [id number] [address] [place] [address] [place] Platelets (Bld) [#/Vol] 229 10*3/uL Normal 150-400 [facility] Comment on above: Order Comment: Speci men Type: BLOOD SPECIMEN Ordering Facility: [facility] Address: [address] [place] [address] Performed By: #### 5 7021-8 #### [facility] CLIA [id number] [address] [place] [address] [place] RBC (Bld) [#/Vol] 4.94 10*6/uL Normal 4.20-6.00 [facility] Comment on above: Order Comment: Speci men Type: BLOOD SPECIMEN Ordering Facility: [facility] Address: [address] [place] [address] Performed By: #### 5 7021-8 #### [facility] CLIA [id number] [address] [place] [address] [place] WBC (Bld) [#/Vol] 5.16 10*3/uL Normal 3.70-11.00 [facility] Comment on above: Order Comment: Speci men Type: BLOOD SPECIMEN Ordering Facility: [facility] Address: [address] [place] [address] Performed By: #### 5 7021-8 #### [facility] CLIA [id number] [address] [place] [address] [place] CT ABD/PEL W IVCONon --[address] ABD/PEL W IVCON * * *Final Report* * * DATE OF EXAM: Nov 08 2024 9:30AM [facility] 0530 - CT ABD/PEL W IVCON / PROCEDURE REASON: multiple diagnoses * * * * Physician Interpretation * * * * EXAMINATION: CT ABDOMEN AND PELVIS WITH IV CONTRAST CLINICAL HISTORY: Malignant neoplasm of head of pancreas TECHNIQUE: CT of the abdomen and pelvis was performed using standard technique, scanning from just above the dome of the diaphragm to the symphysis pubis. MQ: CTAP_3 Contrast: IV: 100 ml of Omnipaque 350 Oral: 10 ml of Omni 240 10-25ml diluted with water CT Radiation dose: Integrated Dose-length product (DLP) for this visit = 887 mGy*cm. CT Dose Reduction Employed: Automated exposure control(AEC) and iterative recon COMPARISON: 05/03/2024. RESULT: Liver: No mass. Biliary: Chronic pneumobilia. Gallbladder is absent. Spleen: No mass. No splenomegaly. Pancreas: Prior pancreaticoduodenectomy. Pancreatic body and tail are atrophic with dystrophic calcifications distally. Adrenals: No mass. Kidneys: Bilateral renal calculi and renal cortical thinning. No obstructive uropathy. GI tract: No dilation or wall thickening. Lymph nodes: A 1.3 cm periportal node is not significantly changed. Mesentery/Peritoneum: Taylor mesenteric opacity is stable. Retroperitoneum: No mass. Vasculature: - Abdominal aorta and iliac arteries: Atherosclerotic calcifications without aneurysm. 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 - Portal venous system (SMV, splenic vein, portal vein and branches): Patent. - Hepatic veins: Incompletely opacified, likely due to early phase of enhancement. Pelvis: Small urolith layering dependently within the urinary bladder. Bones/Soft Tissues: Degenerative changes. Lower thorax: A chest CT performed will be reported separately. Localizer images: No additional findings. IMPRESSION: Prior pancreaticoduodenectomy. No locally recurrent mass or developing adenopathy. 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 Bilateral renal calculi and renal cortical thinning. No obstructive uropathy. Small bladder urolith. It Consultant: ARIA Transcribe Date/Time: Nov 15 2024 4:06P Dictated by : Brooke SOLIS MD This examination was interpreted and the report reviewed and electronically signed by: Brooke SOLIS MD on Nov 15 2024 4:21PM EST [id number] Normal [facility] CT CHEST W IVCONon 4 CT CHEST W IVCON * * *Final Report* * * DATE OF EXAM: Nov 08 2024 9:30AM [facility] 0539 - CT CHEST W IVCON / PROCEDURE REASON: multiple diagnoses * * * * Physician Interpretation * * * * EXAMINATION: CHEST CT WITH CONTRAST CLINICAL HISTORY: Pancreas carcinoma. Right upper lobe adenocarcinoma November 2020 consistent with metastatic disease. Status post RIGHT upper lobectomy Technique: Spiral CT acquisition of the chest from the thoracic inlet to the upper abdomen following IV contrast. MQ: CTCW_6 Contrast: 100 mL Omnipaque [address] Radiation dose: Integrated Dose-length product (DLP) for this visit = 887 mGy*cm CT Dose Reduction Employed: Automated exposure control(AEC) and iterative recon Comparison: 05/03/2024 RESULT: Limitations: None. Lines, tubes, and devices: None. Lung parenchyma and airways: Right upper lobectomy. Peripheral lower lung curvilinear densities consistent with scarring and/or atelectasis. There is a 2 mm density along the fissure between the middle lobe lower lobe (10:77) unchanged since at least 11/03/2022). Right mid lung density 4 x 2 mm in diameter (10:84) also unchanged from 11/03/2022. Mild LEFT upper lobe bronchiectasis. Focal density in the anterior subsegmental bronchus consistent with inspissated mucus. No consolidation. The central airways are patent. Pleural space: No pleural effusion. No pleural thickening. Lower neck, lymph nodes, and mediastinum: The imaged thyroid gland is normal. No lymphadenopathy in the supraclavicular, axillary, mediastinal, or hilar regions. Heart, pericardium, and thoracic vessels: The thoracic aorta and main pulmonary artery are normal in caliber. The cardiac chambers are normal in size. No coronary artery atherosclerotic calcifications are noted, although the study is not optimized for coronary assessment. No pericardial effusion or thickening. Bones and soft tissues: No destructive bone lesion. Chest wall is unremarkable. Upper abdomen: CT abdomen-pelvis dictated separately Localizer images: No additional findings. IMPRESSION: No interval change in the chest to suggest recurrent metastatic disease. It Consultant: ARIA Transcribe Date/Time: Nov 15 2024 4:31P Dictated by : LEANNE GREEN MD This examination was interpreted and the report reviewed and electronically signed by: LEANNE GREEN MD on Nov 15 2024 4:46PM EST [id number] Normal [facility] Cancer Ag19-9 SerPl-aCncon 1 01-09-2024 Cancer Ag 19-9 Qn 10.0 [arb'U]/mL Normal <36.0 [facility] Comment on above: Order Comment: Speci men Type: BLOOD SPECIMEN Ordering Facility: [facility] Address: [address] [place] [address] Result Comment: [facility] er antigen 19-9 test is used as an aid in monitoring response to treatment or recurrence in patients with established pancreatic, hepatobiliary, or gastrointestinal malignancies. Clinical correlation is required. The CA 19-9 Antigen test was performed using the dBMEDx DXI paramagnetic particle chemiluminescent immunoassay method. Results obtained with different assay methods or kits cannot be used interchangeably. Performed By: #### 2 4108-3 #### [facility] CLIA [id number] [address] [place] [address] [place] Comprehensive metabolic 2000 panelon 11-08-2024 Albumin [Mass/Vol] 4.1 g/dL Normal 3.9-4.9 [facility] Comment on above: Order Comment: Speci men Type: BLOOD SPECIMEN Ordering Facility: [facility] Address: [address] [place] [address] Performed By: #### 2 4323-8 #### [facility] CLIA [id number] [address] [place] [address] [place] ALP [Catalytic activity/Vol] 98 U/L Normal 38-113 [facility] Comment on above: Order Comment: Speci men Type: BLOOD SPECIMEN Ordering Facility: [facility] Address: [address] [place] [address] Performed By: #### 2 4323-8 #### [facility] CLIA [id number] [address] [place] [address] [place] ALT [Catalytic activity/Vol] 37 U/L Normal 10-54 [facility] Comment on above: Order Comment: Speci men Type: BLOOD SPECIMEN Ordering Facility: [facility] Address: [address] [place] [address] Performed By: #### 2 4323-8 #### [facility] CLIA [id number] [address] [place] [address] [place] Anion gap [Moles/Vol] 9 mmol/L Normal 8-15 [facility] Comment on above: Order Comment: Speci men Type: BLOOD SPECIMEN Ordering Facility: [facility] Address: [address] [place] [address] Performed By: #### 2 4323-8 #### [facility] CLIA [id number] [address] [place] [address] [place] AST [Catalytic activity/Vol] 35 U/L Normal 14-40 [facility] Comment on above: Order Comment: Speci men Type: BLOOD SPECIMEN Ordering Facility: [facility] Address: [address] [place] [address] Performed By: #### 2 4323-8 #### [facility] [id number] [address] [place] [address] [place] Bilirubin [Mass/Vol] 0.6 mg/dL Normal 0.2-1.3 [facility] Comment on above: Order Comment: Speci men Type: BLOOD SPECIMEN Ordering Facility: [facility] Address: [address] [place] [address] Performed By: #### 2 4323-8 #### [facility] CLIA [id number] [address] [place] [address] [place] Calcium [Mass/Vol] 9.1 mg/dL Normal 8.5-10.2 [facility] Comment on above: Order Comment: Speci men Type: BLOOD SPECIMEN Ordering Facility: [facility] Address: [address] [place] [address] Performed By: #### 2 4323-8 #### [facility] CLIA [id number] [address] [place] [address] [place] Chloride [Moles/Vol] 105 mmol/L Normal 98-107 [facility] Comment on above: Order Comment: Speci men Type: BLOOD SPECIMEN Ordering Facility: [facility] Address: [address] [place] [address] Performed By: #### 2 4323-8 #### [facility] CLIA [id number] [address] [place] [address] [place] CO2 [Moles/Vol] 24 mmol/L Normal 22-30 [facility] Comment on above: Order Comment: Speci men Type: BLOOD SPECIMEN Ordering Facility: [facility] Address: [address] [place] [address] Performed By: #### 2 4323-8 #### [facility] [id number] [address] [place] [address] [place] Creatinine [Mass/Vol] 1.05 mg/dL Normal 0.73-1.22 [facility] Comment on above: Order Comment: Speci men Type: BLOOD SPECIMEN Ordering Facility: [facility] Address: [address] [place] [address] Performed By: #### 2 4323-8 #### [facility] CLIA [id number] [address] [place] [address] [place] Creatinine and Glomerular filtration rate.predicted panel (S/P/Bld) 75 mL/min/1.73m??? Normal >=60 [facility] Comment on above: Order Comment: Speci men Type: BLOOD SPECIMEN Ordering Facility: [facility] Address: [address] [place] [address] Result Comment: Stephanie mated Glomerular Filtration Rate (eGFR) is calculated using the 2020 CKD-EPI creatinine equation. This equation utilizes serum creatinine, sex, and age as parameters. The creatinine assay has traceable calibration to isotope dilution-mass spectrometry. Refer to KDIGO guidelines for clinical interpretation. In patients with unstable renal function, e.g. those with acute kidney injury, the eGFR may not accurately reflect actual GFR. Performed By: #### 2 4323-8 #### [facility] [id number] [address] [place] [address] [place] Glucose [Mass/Vol] 117 mg/dL High 74-99 [facility] Comment on above: Order Comment: Kaveh levy Type: BLOOD SPECIMEN Ordering Facility: [facility] Address: [address] [place] [address] Result Comment: The [place] [employer] (ADA) provides guidance for cutoff values for fasting glucose and random glucose. The ADA defines fasting as no caloric intake for at least 8 hours. Fasting plasma glucose results between 100 to 125 mg/dL indicate increased risk for diabetes (prediabetes). Fasting plasma glucose results greater than or equal to 126 mg/dL meet the criteria for diagnosis of diabetes. In the absence of unequivocal hyperglycemia, results should be confirmed by repeat testing. In a patient with classic symptoms of hyperglycemia or hyperglycemic crisis, random plasma glucose results greater than or equal to 200 mg/dL meet the criteria for diagnosis of diabetes. Reference: Standards of Medical Care in Diabetes 2016, [employer] [place] [employer]. Diabetes Care. 2016.39(Suppl 1). Performed By: #### 2 4323-8 #### [facility] [id number] [address] [place] [address] [place] Potassium [Moles/Vol] 4.6 mmol/L Normal 3.7-5.1 [facility] Comment on above: Order Comment: Kaveh levy Type: BLOOD SPECIMEN Ordering Facility: [facility] Address: [address] [place] [address] Performed By: #### 2 4323-8 #### [facility] [id number] [address] [place] [address] [place] Protein [Mass/Vol] 6.9 g/dL Normal 6.3-8.0 [facility] Comment on above: Order Comment: Kaveh levy Type: BLOOD SPECIMEN Ordering Facility: [facility] Address: [address] [place] [address] Performed By: #### 2 4323-8 #### [facility] CLIA [id number] [address] [place] [address] [place] Sodium [Moles/Vol] 138 mmol/L Normal 136-144 [facility] Comment on above: Order Comment: Speci men Type: BLOOD SPECIMEN Ordering Facility: [facility] Address: [address] [place] [address] Performed By: #### 2 4323-8 #### [facility] CLIA [id number] [address] [place] [address] [place] Urea nitrogen [Mass/Vol] 19 mg/dL Normal 9-24 [facility] Comment on above: Order Comment: Speci men Type: BLOOD SPECIMEN Ordering Facility: [facility] Address: [address] [place] [address] Performed By: #### 2 4323-8 #### [facility] CLIA [id number] [address] [place] [address] [place] HCV Ab Ser Qlon 07-15-2024 HCV Ab Ql (S) Negative Normal Negative [facility] Comment on above: Order Comment: Speci men Type: BLOOD SPECIMEN Ordering Facility: [facility] [place] [address] Result Comment: The result suggests no evidence of active infection with Hepatitis C virus. Should recent infection be suspected, repeat testing may be considered 4-6 weeks after this draw. Performed By: #### 1 6128-1 #### [facility] CLIA [id number] [address] [place] [address] [place] Lipid 1996 panelon 4 Cholesterol [Mass/Vol] 167 mg/dL Normal <200 [facility] Comment on above: Order Comment: Speci men Type: BLOOD SPECIMEN Ordering Facility: [facility] Address: [address] [place] [address] Result Comment: <200 mg/dL, Desirable 200-239 mg/dL, Borderline high >239 mg/dL, High Performed By: #### 2 4331-1 #### [facility] CLIA [id number] [address] [place] [address] [place] [facility] CLIA [id number] [address] [place] [address] [place] #### 3016-3 #### [facility] CLIA [id number] [address] [place] [address] [place] Cholesterol in HDL [Mass/Vol] 32 mg/dL Low >39 [facility] Comment on above: Order Comment: Kaveh levy Type: BLOOD SPECIMEN Ordering Facility: [facility] Address: [facility] [address], [place] [address] Result Comment: 40-5 9 mg/dL, Acceptable >59 mg/dL, High: Negative risk factor for coronary heart disease <40 mg/dL, Low: Positive risk factor for coronary heart disease Performed By: #### 2 4331-1 #### [facility] CLIA [id number] [address] [place] [address] [place] [facility] CLIA [id number] [address] [place] [address] [place] #### 3016-3 #### [facility] CLIA [id number] [address] [place] [address] [place] Cholesterol in LDL [Mass/Vol] 108 mg/dL High <100 [facility] Comment on above: Order Comment: Kaveh levy Type: BLOOD SPECIMEN Ordering Facility: [facility] Address: [place] [address] Result Comment: <100 mg/dL, Optimal 100-129 mg/dL, Near optimal/above optimal 130-159 mg/dL, Borderline high 160-189 mg/dL, High >189 mg/dL, Very high Secondary prevention optimal LDL Cholesterol levels are recommended to be < 70 mg/dL Performed By: #### 2 4331-1 #### [facility] CLIA [id number] [address] [facility] [place] [place] [address] [place] [facility] CLIA [id number] [address] [place] [address] [place] #### 3016-3 #### [facility] CLIA [id number] [address] [facility] [place] [address] [place] Cholesterol in LDL/Cholesterol in HDL [Mass ratio] 3.38 {ratio} High <2.54 [facility] Comment on above: Order Comment: Speci men Type: BLOOD SPECIMEN Ordering Facility: [facility] Address: [address], [place] [address] Result Comment: Refe rence: 1. National Cholesterol Education Program ATP III Guideline At-A-Glance Quick Desk Reference: National Heart, Lung, and Blood Griffin. National Institutes of Health. 2001: NIH Publication No. 01-3305. 2. An International Atherosclerosis Society position paper: global recommendations for the management of dyslipidemia: executive summary, Atherosclerosis. 2014: 232(2):410-413. Performed By: #### 2 4331-1 #### [facility] CLIA [id number] [address] [place] [address] [place] [facility] [id number] [address] [place] [address] [place] #### 3016-3 #### [facility] CLIA [id number] [address] [place] [address] [place] Cholesterol in VLDL [Mass/Vol] 27 mg/dL Normal <30 [facility] Comment on above: Order Comment: Speci men Type: BLOOD SPECIMEN Ordering Facility: [facility] Address: [address], [place] [address] Performed By: #### 2 4331-1 #### [facility] CLIA [id number] [address] [place] [address] [place] [facility] CLIA [id number] [address] [place] [address] [place] #### 3016-3 #### [facility] CLIA [id number] [address] [place] [address] [place] Cholesterol non HDL [Mass/Vol] 135 mg/dL High <130 [facility] Comment on above: Order Comment: Speci men Type: BLOOD SPECIMEN Ordering Facility: [facility] Address: [address], [place] [address] Result Comment: <130 mg/dL, Optimal 130-159 mg/dL, Near optimal/above optimal 160-189 mg/dL, Borderline high 190-219 mg/dL, High >219 mg/dL, Very high Secondary prevention optimal non HDL Cholesterol levels are recommended to be <100 mg/dL Performed By: #### 2 4331-1 #### [facility] CLIA [id number] [address] [place] [address] [place] [facility] CLIA [id number] [address] [place] [address] [place] #### 3016-3 #### [facility] CLIA [id number] [address] [place] [address] [place] Cholesterol.total /Cholesterol in HDL [Mass ratio] 5.22 {ratio} High <5.10 [facility] Comment on above: Order Comment: Speci men Type: BLOOD SPECIMEN Ordering Facility: [facility] Address: [address], [place] [address] Performed By: #### 2 4331-1 #### [facility] CLIA [id number] [address] [place] [address] [place] [facility] [id number] [address] [place] [address] [place] #### 3016-3 #### [facility] CLIA [id number] [address] [place] [address] [place] FASTING TIME 16 hrs Normal [facility] Comment on above: Order Comment: Speci men Type: BLOOD SPECIMEN Ordering Facility: [facility] Address: [facility] [address], [place] [address] Performed By: #### 2 4331-1 #### [facility] CLIA [id number] [address] [place] [address] [place] [facility] [id number] [address] [place] [address] [place] #### 3016-3 #### [facility] CLIA [id number] [address] [place] [address] [place] Triglyceride [Mass/Vol] 134 mg/dL Normal <150 [facility] Comment on above: Order Comment: Speci men Type: BLOOD SPECIMEN Ordering Facility: [facility] Address: [facility] [address] [place] [address] Result Comment: <150 mg/dL, Normal 150-199 mg/dL, Borderline high 200-499 mg/dL, High >499 mg/dL, Very high Performed By: #### 2 4331-1 #### [facility] CLIA [id number] [address] [place] [address] [place] [facility] [id number] [address] [place] [address] [place] #### 3016-3 #### [facility] CLIA [id number] [address] [place] [address] [place] PSA/PROSTATE SPECIFIC ANTIGE N SCREENINGon 07-15-2024 Prostate specific Ag [Mass/Vol] 4.82 ng/mL High <2.60 [facility] Comment on above: Order Comment: Speci men Type: BLOOD SPECIMEN Ordering Facility: [facility] Address: [address] [address] Result Comment: Nathan l PSA test methodology used is the Electrochemiluminescence Immunoassay by [employer]. Total PSA values by differing methodologies cannot be interchanged. For an individual patient, the significance of a PSA level should be interpreted in a broad clinical context, including age, race, family history, digital rectal exam, prostate size, results of prior testing (prostate biopsy, free PSA, PCA3), and use of 5-alpha reductase inhibitors. Considering the high incidence of asymptomatic cancer in the general population that may not pose an ultimate risk to a patient, the decision to recommend urological evaluation or prostate biopsy should be individualized after consideration of all these factors. REFERENCE: Devi Perez M.D., M.P.H., Raj Rajput M.D., Ph.D., Nj Ennis M.D., Janna Beckwith, M.P.H., Jennifer Paul, Sc.D. Effect of Verification Bias on Screening for Prostate Cancer by Measurement of Prostatic Specific Antigen. N Engl J Med 2003,349:335-42. Performed By: #### P SAS1 #### [facility] CLIA [id number] [address] [place] [address] [place] TESTOSTERONE, FREE AND TOTAL on 07-15-2024 TESTOSTERONE, FREE, S 10.2 ng/dL Normal 3.28-12.2 [facility] Comment on above: Order Comment: Speci men Type: BLOOD SPECIMEN Ordering Facility: [facility] Address: [place] [address] Result Comment: ADDITIONAL INFORMATION This test was developed and its performance characteristics determined by [facility] in a manner consistent with CLIA requirements. This test has not been cleared or approved by the U.S. Food and Drug Administration. Performed By: #### T FTEST #### [facility] CLIA [id number] [address] [place] [address] TESTOSTERONE, TOTAL, S 538 ng/dL Normal 240-950 [facility] Comment on above: Order Comment: Speci men Type: BLOOD SPECIMEN Ordering Facility: [facility] Address: [address], [place] [address] Result Comment: ADDITIONAL INFORMATION Testing performed by Liquid Chromatography-Tandem Mass Spectrometry (LC-MS/MS). This test was developed and its performance characteristics determined by [facility] in a manner consistent with CLIA requirements. This test has not been cleared or approved by the U.S. Food and Drug Administration. Test Performed by: [facility] [address] [place] [address] Product Safety Engineer: Gabi Baker Ph.D.; CLIA# [id number] Performed By: #### T FTEST #### [facility] CLIA [id number] [address] [place] [address] TSH SerPl-aCncon 07-15-2024 TSH Qn 3.080 m[IU]/L Normal 0.270-4.200 [facility] Comment on above: Order Comment: Speci men Type: BLOOD SPECIMEN Ordering Facility: [facility] Address: [address], [place] [address] Performed By: #### 2 4331-1 #### [facility] CLIA [id number] [facility] [place] [address] [place] [facility] CLIA [id number] [address] [place] [address] [place] #### 3016-3 #### [facility] CLIA [id number] [address] [place] [address] [place] PROGRESSon 01-16-2021 PROGRESS HNO ID: [id number] Author: Pedrito Hunt Service: ? Author Type: Physician Type: Progress Notes Filed: 01/17/2021 11:39 AM Note Text: I had the pleasure of speaking with Mr. Herrera. Since seeing him last, he has undergone an EBUS which was negative for alayna disease. They were unable to obtain additional tissue from the primary tumor to aid in differentiation of metastasis from primary. Given the totality of the evidence, I believe this is very unlikely to be a metastasis and have therefore recommended proceeding with a lobectomy. We have discussed the conduct of the operation, risks/benefits and the expected postop course. He is in agreement with proceeding, I will have him work with our scheduling team to identify a suitable date for the surgery and the preop assessment. I have spent 20 minutes in counseling and coordination of care for this patient. I spent more than 50% of the visit face to face with the patient counseling on treatment options and the subsequent plan. Pedrito Hunt MD 01/16/21 Time: 10 min Pt here for follow up Phone visit: Right Lung Adenocarcinoma Last clinic note 12/28/2020 per Pedrito Hunt M.D. IMPRESSION: Patient is a 70 year old male with notable history for pancreatic cancer treated in 2011 who was more recently found to have a new RUL lung lesion. More recently his CA 19-9 screening revealed an elevation thus he underwent imaging revealing a new 1.4 cm hypermetabolic RUL nodule with some uptake in his mediastinal nodes. He has undergone biopsying revealing adenocarcinoma, however, there is not enough tissue for IHC. ? The patient reports an excellent functional status, denies chest pain with activity. He denies weight loss, fatigue, neuro symptoms, bone pain or cough. ? We had a legnthy discussion and I looked at his imaging. Would begin by staging his mediastinum by bronchoscopy. Will request another attempt at biopsy of the primary lesion to obtain tissue for IHC. Will then plan to see patient back. ? PLAN: 1) EBUS and Alejo bronchoscopy then RTC Today's Phone visit 01/16/2021 Bronchoscopy 01/07/2021 Findings: ? ? ?The laryngeal mask airway is in good position. The vocal cords appear ? ? ?normal. The subglottic space is normal. The trachea is of normal ? ? ?caliber. The khadar is sharp. The tracheobronchial tree was examined ? ? ?to at least the first subsegmental level. Bronchial mucosa and ? ? ?anatomy are normal; there are no endobronchial lesions, and no ? ? ?secretions. ? ? ?Once the airway inspection was completed, the standard bronchoscope ? ? ?was withdrawn and the convex probe endobronchial ultrasound (EBUS) ? ? ?bronchoscope was inserted through the same route. A systematic ? ? ?staging of the hilum and mediastinum was performed. ? ? ?Lymph Nodes: The following lymph nodes were evaluated and/or sampled. ? ? ?Lymph node sizing was performed via endobronchial ultrasound for ? ? ?known non-small cell lung cancer. Sampling by transbronchial needle ? ? ?aspiration was also performed using an Olympus EBUS-TBNA 22 gauge ? ? ?needle and sent for routine cytology. ? ? ?- The 11L (interlobar) node was 15.9 mm by EBUS. Three samples with ? ? ?the needle were obtained. ? ? ?- The 4L (lower paratracheal) node was 6.6 mm by EBUS. Five samples ? ? ?with the needle were obtained. ? ? ?- The 2L (upper paratracheal) node was not visualized by EBUS. ? ? ?Sampling was not done (the node was not visualized). ? ? ?- The 7 (subcarinal) node was 5.1 mm by EBUS. Five samples with the ? ? ?needle were obtained. ? ? ?- The 2R (upper paratracheal) node was 5.5 mm by EBUS. Sampling was ? ? ?not done as it was not clinically indicated. ? ? ?- The 4R (lower paratracheal) node was 5.8 mm by EBUS. Five samples ? ? ?with the needle were obtained. ? ? ?Lymph Nodes: Lymph node sizing was performed via endobronchial ? ? ?ultrasound. Sampling by transbronchial needle aspiration was also ? ? ?performed using an Olympus EBUS-TBNA 22 gauge needle and sent for ? ? ?routine cytology. ? ? ?- The 10R (hilar) node was 4.7 mm by EBUS. Sampling was not done due ? ? ?to size criteria (less than 5 mm). ? ? ?- The 11Rs (superior interlobar) node was 5.4 mm by EBUS. Five ? ? ?samples with the needle were obtained. ? ? ?- The 11Ri (inferior interlobar) node was 6.1 mm by EBUS. Five ? ? ?samples with the needle were obtained. ? ? ?Lymph Nodes: Rapid On-Site Evaluation (TAYLOR): Preliminary cytology ? ? ?was suggestive of atypical cells (final results are pending) in the ? ? ?subcarinal mediastinum (level 7). Preliminary cytology was suggestive ? ? ?of benign-appearing lymphoid tissue (final results are pending) in ? ? ?the right lower paratracheal region (level 4R), right superior ? ? ?interlobar region (level 11Rs) and left interlobar region (level ? ? ?11L). Cytology was preliminarily non-diagnostic in the left lower ? ? ?paratracheal region (level 4L) and right inferior interlobar region?(level 11Ri). Impression: ? - Airway exam was normal. ? - EBUS staging for ymph node sizing and sampling was? performed. ? - Rapid On-Site Evaluation (TAYLOR): Preliminary cytology was suggestive of atypical cells in node level 7, of benign-appearing lymphoid tissue in node level 4R, node level 11Rs and node level 11L, and preliminary cytology was non-diagnostic in node level 4L and node level 11Ri (final results are pending). Recommendation: ? ? ? - Await biopsy results. Bronchial Fine Needle Aspiration 01/07/2021 SPECIMEN SUBMITTED A: BRONCHIAL, #22G EBUS TBNA 11L, FINE NEEDLE ASPIRATE (THINPREP, SMEARS AND CELL BLOCK) B: BRONCHIAL,#22G EBUS TBNA 4L, ?FINE NEEDLE ASPIRATE (THINPREP, SMEARS AND CELL BLOCK) C: BRONCHIAL,#22G EBUS TBNA STATION-7, FINE NEEDLE ASPIRATE (THINPREP, SMEARS AND CELL BLOCK) D: BRONCHIAL,#22G EBUS TBNA 4R, ?FINE NEEDLE ASPIRATE (THINPREP, SMEARS AND CELL BLOCK) E: BRONCHIAL,#22G EBUS TBNA 11RS, ?FINE NEEDLE ASPIRATE (THINPREP, SMEARS AND CELL BLOCK) F: BRONCHIAL, #22G EBUS TBNA 11RI, FINE NEEDLE ASPIRATE (THINPREP, SMEARS AND CELL BLOCK) FINAL DIAGNOSIS A. BRONCHIAL, #22G EBUS TBNA 11L, FINE NEEDLE ASPIRATE (THINPREP, SMEARS AND CELL BLOCK) Negative for malignant cells. Benign lymphoid sample. B. BRONCHIAL,#22G EBUS TBNA 4L, ?FINE NEEDLE ASPIRATE (THINPREP, SMEARS AND CELL BLOCK) Negative for malignant cells. Benign bronchial epithelial cells and chronic inflammation. C. BRONCHIAL,#22G EBUS TBNA STATION-7, FINE NEEDLE ASPIRATE (THINPREP, SMEARS AND CELL BLOCK) Rare atypical cells present in the background of a lymphoid sample. D. BRONCHIAL,#22G EBUS TBNA 4R, ?FINE NEEDLE ASPIRATE (THINPREP, SMEARS AND CELL BLOCK) Negative for malignant cells. Benign lymphoid sample. E. BRONCHIAL,#22G EBUS TBNA 11RS, ?FINE NEEDLE ASPIRATE (THINPREP, SMEARS AND CELL BLOCK) Negative for malignant cells. Benign lymphoid sample. F. BRONCHIAL, #22G EBUS TBNA 11RI, FINE NEEDLE ASPIRATE (THINPREP, SMEARS AND CELL BLOCK) Negative for malignant cells. Benign bronchial epithelial cells and chronic inflammation. Comment: Part C - Rare atypical cells are present within the background of a lymphoid sample. These cells are best seen in the smears. No atypical cells are present on the cell block specimen for ancillary studies, including immunohistochemical analysis. Select slides have been reviewed in consultation with Dr. Doug Felton, of the [facility] Cytopathology Department, who concurs. The patient's prior cytology specimen ([id number]) has been reviewed. Juan Velasquez M.D. ? (Electronic Signature) CLINICAL DATA Pancreatic adenocarcinoma and lung adenocarcinoma ADEQUACY INTERPRETATION DIFF QUIK RAPID READ A: #1,2: lymphoid sample(A3, both alcohol fixed) B: #1-5: Non-diagnostic C: #1,3: Atypical cells ? ?#2: Non-diagnostic ? ?#4: Lymphoid ? ?#5: Limited lymphoid D: #1,4: Limited lymphoid ? ?#2: Non-diagnostic ? ?#3: Lymphoid E: #1: Lymphoid ? ?#2-5: Non-diagnostic F: #1-5: Non-diagnostic Dr. Janet Velasquez / Dr. Jose Alfredo Ayoub / Nico Mccollum / Janet Vieyra Each letter in the above intra-procedural assessment refers to a unique site. The specific site is indicated in the final diagnosis portion of the report. Each number in this assessment references a discrete evaluation episode. GROSS DESCRIPTION A: 30cc clear pink CytoLyt with scant particles and 6 smears (2 Diff Quik and 4 paps) B: 30cc hazy red CytoLyt with particles and 10 smears (5 Diff Quik and 5 paps) C: 30cc hazy red CytoLyt with particles and 10 smears (5 Diff Quik and 5 paps) D: 30cc clear colorless CytoLyt and 8 smears (4 Diff Quik and 4 paps) E: 35cc clear pink-tinged CytoLyt and 10 smears (5 Diff Quik and 5 paps) F: 30cc clear pink CytoLyt and 10 smears (5 Diff Quik and 5 paps) STAINS A: ?BRONCHIAL, #22G EBUS TBNA 11L, FINE NEEDLE ASPIRATE (THINPREP, SMEARS AND CELL BLOCK) ? ? ?SMEARS RECEIVED x 6, THIN PREP Non-Neon Tube Pumper, CELL BLOCK, SOILA, Initial B: ?BRONCHIAL,#22G EBUS TBNA 4L, ?FINE NEEDLE ASPIRATE (THINPREP, SMEARS AND CELL BLOCK) ? ? ?SMEARS RECEIVED x 10, THIN PREP Non-Neon Tube Pumper, CELL BLOCK, SOILA, Initial C: ?BRONCHIAL,#22G EBUS TBNA STATION-7, FINE NEEDLE ASPIRATE (THINPREP, SMEARS AND CELL BLOCK) ? ? ?SMEARS RECEIVED x 10, THIN PREP Non-Neon Tube Pumper, CELL BLOCK, SOILA, Initial D: ?BRONCHIAL,#22G EBUS TBNA 4R, ?FINE NEEDLE ASPIRATE (THINPREP, SMEARS AND CELL BLOCK) ? ? ?SMEARS RECEIVED x 8, THIN PREP Non-Neon Tube Pumper, CELL BLOCK, SOILA, Initial E: ?BRONCHIAL,#22G EBUS TBNA 11RS, ?FINE NEEDLE ASPIRATE (THINPREP, SMEARS AND CELL BLOCK) ? ? ?SMEARS RECEIVED x 10, THIN PREP Non-Neon Tube Pumper, CELL BLOCK, SOILA, Initial F: ?BRONCHIAL, #22G EBUS TBNA 11RI, FINE NEEDLE ASPIRATE (THINPREP, SMEARS AND CELL BLOCK) ? ? ?SMEARS RECEIVED x 10, THIN PREP Non-Neon Tube Pumper, CELL BLOCK, SOILA, Initial Normal [facility] NM PET/CT SKULL-THIGH INITon 12-18-2020 NM PET/CT SKULL-THIGH INIT * * *Final Report* * * DATE OF EXAM: Dec 18 2020 9:13AM MDP 0060 - NM PET/CT SKULL-THIGH INIT / PROCEDURE REASON: C34.90-Malignant neoplasm of unspecified part of unspecified bronchus or lung (H * * * * Physician Interpretation * * * * EXAMINATION: REGIONAL FDG PET/CT SCAN: (12/18/2020 9:47 AM) HISTORY: 70 years old Male with Malignant neoplasm of unspecified part of unspecified bronchus or lung (HCC) . INDICATION: Study performed for initial treatment strategy. TECHNIQUE: F18-FDG administered IV was followed about 60 minutes later by PET imaging from skull base to proximal thigh. Free breathing low dose CT was performed without contrast for attenuation correction and anatomic localization. FDG radionuclide dose: 12.[address] Dose-Length Product (DLP): 353 mGy*cm CT Dose Reduction Employed: Automatic exposure control used (AED) COMPARISON: None available CORRELATION: CT scan of the chest dated 11/08/2020. CT scan of the pancreas dated 11/08/2020. RESULT: For reference maximum SUV values: Mediastinal blood pool 2.5. Background Liver: 2.2 NECK: Physiologic uptake seen in the visualized brain, parapharyngeal soft tissues, base of tongue, vocal cords, and salivary glands. No hypermetabolic cervical lymphadenopathy or hypermetabolic masses. No focal hypermetabolic thyroid lesion. CHEST: Physiologic uptake in the heart and mediastinal blood pool. Lungs, tracheobronchial tree and pleura: A hypermetabolic nodule, measuring 1.4 x 1.4 cm, having maximum SUV of is noted in the posterior aspect of the right upper lobe, having maximum SUV of 4.5. Small area of cavitation is noted within this nodule. Small amount of patchy opacification is noted in the posterior basilar portion of the right lower lobe with minimal FDG uptake with maximum SUV of 1.9, nonspecific, however likely of infectious/inflammatory etiology or sequela of previous infectious/inflammatory etiology. Please note that PET/CT is not sensitive for pulmonary nodules less than 8 mm. Mediastinum and Lymph nodes: Few small mildly hypermetabolic right paratracheal lymph notes with maximum SUV of 4.1; largest measuring approximately 14 x 10 mm. Small prevascular lymph nodes with maximum SUV of 4. Mild FDG uptake is identified in the right hilar region, with maximum SUV of 3.6. Chest wall and axilla: No hypermetabolic lesions. ABDOMEN AND PELVIS: Physiologic uptake seen in the and GI tracts. Liver: No hypermetabolic mass. Small amount of pneumobilia is noted. Biliary: Gallbladder is not identified. Intrahepatic biliary millimeter area, compatible with pneumobilia. Spleen: No hypermetabolic mass. No splenomegaly. Pancreas: Atrophic pancreatic body and tail with few calcifications in the region of the pancreatic tail. Patient is status post resection of the proximal pancreas/pancreatic head.. Adrenals: No hypermetabolic lesions. Kidneys: No right or left hydronephrosis. Tiny calcifications in the right kidney, likely a nonobstructing renal calculi.. GI tract: No dilation or wall thickening. The appendix is normal in size and caliber. Lymph nodes: No hypermetabolic abdominal or pelvic lymphadenopathy. Mesentery/Peritoneum: No ascites or hypermetabolic mass lesions. Vasculature: Vascular patency cannot be assessed due to lack of IV contrast. There are atherosclerotic calcifications without aneurysmal dilation. Pelvis: No hypermetabolic mass, ascites or fluid collection. BONES AND EXTREMITIES: Mild FDG uptake is identified in the medial aspect of the left clavicle, with maximum SUV of 3.8; ill-defined area of sclerosis is identified in the accompanying CT in this region (series 3, image [id number]). - IMPRESSION: 1. NECK: No FDG avid neoplastic process. No mass, adenopathy, or fluid collection. 2. CHEST: Small hypermetabolic right upper lobe lung nodule, highly suspicious for malignancy. Mildly hypermetabolic small mediastinal and right hilar lymph nodes, nonspecific, however early metastatic involvement cannot be excluded. 3. ABDOMEN/PELVIS: No FDG avid neoplastic process. No mass, adenopathy, or fluid collection. 4. EXTREMITIES/SKELETON: Mild hypermetabolism in the medial aspect of the left clavicle, corresponding to ill-defined areas of sclerosis; nonspecific finding, however early metastatic disease cannot be excluded. It Consultant: ARIA Transcribe Date/Time: Dec 18 2020 9:47A Dictated by : BARRY MILLS MD This examination was interpreted and the report reviewed and electronically signed by: BARRY MILLS MD on Dec 18 2020 10:11AM EST [id number] [facility] PROGRESSon 12-18-2020 PROGRESS HNO ID: [id number] Author: Stephanie () Lauren Sena Service: Nuclear Medicine Author Type: Director Education Type: Progress Notes Filed: 12/18/2020 8:07 AM Note Text: RADIOLOGY SERVICE PROGRESS NOTE SERVICE DATE: 12/18/2020 SERVICE TIME: 8:07 AM PATIENT IDENTITY VERIFICATION COMPLETED USING TWO (2) STANDARD IDENTIFIERS: Name and Date of confirmed by patient verbally DIAGNOSTIC CT PERFORMED: No IV SITE: Ambulatory: NM only - direct IV injection in the Right antecubital site POST EXAM PIV STATUS: Not applicable PROCEDURE TYPE: NM INJECT: PET/CT BODY SCAN. 12.6 mCi F18 FDG. No other medications given.. ADMINISTRATION TIME: 0800 PATIENT DISCHARGED TO: Ambulatory patient, left NE department area. A Diagnostic radioactive procedure has taken place, with no further precautions necessary other than routine body substance precautions. More information regarding radiation safety can be found using this link: [email or web address] [email or web address] SIGNATURE: RT LIDIA PATIENT NAME: Chela Herrera DATE: December 18, 2020 TIME: 8:07 AM PAGER/CONTACT #: [facility] CNOVon 11-13-2020 CNOV Office Visit ([facility]) CHELA HERRERA ([id number]) 1950 Date Time Provider Department 11/13/20 1:30 PM YAEL OCHOA ([facility]) [facility] During your visit today, we recorded the following information about you: ELENA Rodriguez 11/13/2020 2:10 PM Addendum [facility] Consultation Note Genetic Counselor: ELENA Rodriguez Patient: Chela Herrera Patient Name and confirmed at initiation of visit HIGH LEVEL SUMMARY: ? The patient's personal and family history is potentially suggestive of a hereditary cancer syndrome. ? The patient decided to go home and think further about genetic testing. The patient will call me if he would like to pursue testing and an addendum will be added to the note at that time. IDENTIFICATION AND CHIEF COMPLAINT: Dr. Pb Kruse requested a consultation for genetic counseling and risk assessment for Chela Herrera, a 70 year old male, for discussion of his personal history of pancreatic cancer. He presents to clinic today to discuss the possibility of a genetic predisposition to cancer, and to further clarify his risks, as well as his family members' risks for cancer. HISTORY OF PRESENT ILLNESS: In 2011, at the age of 62, Chela Herrera was diagnosed with adenocarcinoma of the pancreas. This was treated with pylorus preserving pancreaticoduodenectomy, chemotherapy, and radiation therapy. The patient was recently found to have a lung nodule that is scheduled to be biopsied. PAST MEDICAL HISTORY Diagnosis Date - Hemorrhoids, internal - Pulmonary embolism (HCC) 2008 PAST SURGICAL HISTORY Procedure Laterality Date - COLONOSCOP W/ OR W/O [facility] SPEC 04/29/2010 Normal except for anorectal nodule - EYE SURGERY PROCEDURE From Accident - PAST SURGICAL HISTORY OF 06/03/2012 Exploratory laparoscopy and whipple ([facility]) - SURG DIAGNOSTIC EXAM, ANORECTAL 06-04-10 CANCER SURVEILLANCE HISTORY: Colonoscopy: Yes / patient reports last colonoscopy 10 years ago with no polyps, he is scheduled for a colonoscopy next week GI Polyps: No Prostate Cancer surveillance: No Dermatology: No REPRODUCTIVE HISTORY AND PERSONAL RISK ASSESSMENT FACTORS: Weight: Last 1 Encounter Wt Readings: Date: Wt: 10/29/2020 97.5 kg (215 lb) Height: Last 1 Encounter Ht Readings: Date: Ht: 10/29/2020 182 cm (5' 11.65) SOCIAL HISTORY: Social History Tobacco Use - Smoking status: Former Smoker Packs/day: 0.50 Years: 6.00 Pack years: 3.00 Types: Cigarettes Quit date: 11/30/1974 Years since quittin.9 - Smokeless tobacco: Never Used Substance Use Topics - Alcohol use: Yes Comment: only very rarely, none since diagnosis - Drug use: No FAMILY HISTORY: We obtained a detailed, 4-generation family history. Significant diagnoses are listed below: FAMILY HISTORY Problem Relation Age of Onset - Heart Father - Skin Cancer Brother On face - Prostate Cancer Brother 70 - Breast Cancer Sister 42 - Cancer Maternal Grandfather unknown type - Breast Cancer Niece ? - Cancer Paternal cousin stomach - Cancer Paternal Aunt unknown type - Cancer Paternal Uncle unknown type - Accidental Daughter MVA The patient's maternal ancestors are of [place] descent and paternal ancestors are of [place] descent. The patient reports Rastafari ancestry. There is no Ashkenazi Rastafarian ancestry. There is no known consanguinity. A copy of the patient's pedigree will be available under the scanned documents tab following today's visit. GENETIC COUNSELING RISK ASSESSMENT, DISCUSSION, AND SUGGESTED FOLLOW UP: We reviewed the natural history and genetic etiology of sporadic, familial and hereditary cancer syndromes. The patient's personal and family history is potentially suggestive of: a hereditary cancer syndrome The patient meets NCCN HBOC testing criteria based on his personal history of pancreatic cancer. We discussed that identification of a hereditary cancer syndrome may help his care providers tailor his medical management. If a mutation is detected, the National Comprehensive Cancer Network and/or expert opinion recommendations would include increased cancer surveillance and targeted treatment options. If a mutation is detected, the patient will be referred back to the referring provider and to any additional appropriate care providers to discuss the relevant options. Inheritance of hereditary cancer syndromes was discussed with the patient. If a mutation is not found in the patient, this will decrease the likelihood of a hereditary cancer syndrome as the explanation for the patient's personal history of pancreatic cancer. However, it cannot completely rule out this possibility. Cancer surveillance options would be discussed for the patient according to the appropriate standard National Comprehensive Cancer Network and [place] [employer] guidelines, with consideration of their personal and family history risk factors. In this case, the patient will be referred back to their care providers for discussions of management. Based on this assessment of the patient's family and personal history, genetic testing is recommended. The patient was offered Integrated BRACAnalysis with myRisk through [employer] or DETECT Common Hereditary Cancers Panel with preliminary evidence pancreatic cancer genes through [facility]. After considering the risks, benefits, and limitations, the patient chose to go home and think further about genetic testing. The patient will call me if he decides to pursue genetic testing. An addendum will be added to the clinic note at that time. We discussed that an NGS panel can rarely result in an unexpected finding in a gene which may or may not be related to the presenting phenotype. The patient was seen for a total of 30 minutes, greater than 50% of which was spent [id number] counseling. This plan is being carried out per Dr. Vanita Mishra's recommendations. This note will also be sent to the referring provider via the electronic medical record. Yael Ochoa, [facility] CC: Dr. Pb Mishra Referring Provider: PB KRUSE [[id number]] Allergies As of Date: 11/13/2020 (No Known Allergies) Date Reviewed: 11/06/2020 Reviewed by: Janna ([facility]) Lauren Bhardwaj - Fully Assessed Visit Diagnosis:Malignant neoplasm of head of pancreas (HCC) [C25.0] Order(s):CONSULT TO [facility] CANCER GENETIC COUNSELING [[id number]] Order #: [id number]: 1 Prescriptions as of 11/13/2020 Sig: ASCORBIC ACID (VITAMIN C) 500* Take 500 mg by mouth once kya* VITAMIN D3 5,000 UNIT-FOLIC A* Take by mouth once daily. ZINC ACETATE 25 MG (ZINC) CAP* Take by mouth once daily. ELIQUIS 5 MG TABLET TAKE 1 TABLET TWICE A DAY [id number] 12,00* Take 2 capsules by mouth thre* * ACETAMINOPHEN 500 MG TABLET Take 1,000 mg by mouth every * * IBUPROFEN 200 MG TABLET Take 400 mg by mouth every 6 * * MULTIVITAMIN ORAL Take by mouth once daily. 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 10/28/2016 Obstructive jaundice [K83.1] 04/07/2012 12/13/2013 Pancreatic cancer (HCC) [C25.9] 06/22/2012 04/28/2016 Pre-op evaluation [Z01.818] 07/02/2012 12/13/2013 Personal history of pulmonary embolism [Z86.711]07/02/2012 12/13/2013 Anticoagulation management encounter [Z51.81, Z*07/02/2012 03/27/2014 Pulmonary embolism without acute cor pulmonale *10/29/2015 10/28/2016 Malignant neoplasm of head of pancreas (HCC) [C*04/28/2016 Pulmonary embolism without acute cor pulmonale *04/28/2017 Encounter Status:Closed by YAEL OCHOA [facility] on 11/13/20 [facility] PROGRESSon 11-13-2020 PROGRESS HNO ID: [id number] Author: Yael EvansMid-Valley HospitalMalick Ochoa Service: ? Author Type: Genetic Counselor Type: Progress Notes Filed: 11/20/2020 8:51 AM Note Text: [facility] Consultation Note Genetic Counselor: ELENA Rodriguez Patient: Chela Herrera Patient Name and confirmed at initiation of visit HIGH LEVEL SUMMARY: ? The patient's personal and family history is potentially suggestive of a hereditary cancer syndrome. ? The patient decided to go home and think further about genetic testing. The patient will call me if he would like to pursue testing and an addendum will be added to the note at that time. IDENTIFICATION AND CHIEF COMPLAINT: Dr. Pb Kruse requested a consultation for genetic counseling and risk assessment for Chela Herrera, a 70 year old male, for discussion of his personal history of pancreatic cancer. He presents to clinic today to discuss the possibility of a genetic predisposition to cancer, and to further clarify his risks, as well as his family members' risks for cancer. HISTORY OF PRESENT ILLNESS: In 2011, at the age of 62, Chela Herrera was diagnosed with adenocarcinoma of the pancreas. This was treated with pylorus preserving pancreaticoduodenectomy, chemotherapy, and radiation therapy. The patient was recently found to have a lung nodule that is scheduled to be biopsied. PAST MEDICAL HISTORY Diagnosis Date - Hemorrhoids, internal - Pulmonary embolism (HCC) 2008 PAST SURGICAL HISTORY Procedure Laterality Date - COLONOSCOP W/ OR W/O [facility] SPEC 04/29/2010 Normal except for anorectal nodule - EYE SURGERY PROCEDURE From Accident - PAST SURGICAL HISTORY OF 06/03/2012 Exploratory laparoscopy and whipple ([facility]) - SURG DIAGNOSTIC EXAM, ANORECTAL 06-04-10 CANCER SURVEILLANCE HISTORY: Colonoscopy: Yes / patient reports last colonoscopy 10 years ago with no polyps, he is scheduled for a colonoscopy next week GI Polyps: No Prostate Cancer surveillance: No Dermatology: No REPRODUCTIVE HISTORY AND PERSONAL RISK ASSESSMENT FACTORS: Weight: Last 1 Encounter Wt Readings: Date: Wt: 10/29/2020 97.5 kg (215 lb) Height: Last 1 Encounter Ht Readings: Date: Ht: 10/29/2020 182 cm (5' 11.65) SOCIAL HISTORY: Social History Tobacco Use - Smoking status: Former Smoker Packs/day: 0.50 Years: 6.00 Pack years: 3.00 Types: Cigarettes Quit date: 11/30/1974 Years since quittin.9 - Smokeless tobacco: Never Used Substance Use Topics - Alcohol use: Yes Comment: only very rarely, none since diagnosis - Drug use: No FAMILY HISTORY: We obtained a detailed, 4-generation family history. Significant diagnoses are listed below: FAMILY HISTORY Problem Relation Age of Onset - Heart Father - Skin Cancer Brother On face - Prostate Cancer Brother 70 - Breast Cancer Sister 42 - Cancer Maternal Grandfather unknown type - Breast Cancer Niece ? - Cancer Paternal cousin stomach - Cancer Paternal Aunt unknown type - Cancer Paternal Uncle unknown type - Accidental Daughter MVA The patient's maternal ancestors are of [place] descent and paternal ancestors are of [place] descent. The patient reports Rastafari ancestry. There is no Ashkenazi Rastafarian ancestry. There is no known consanguinity. A copy of the patient's pedigree will be available under the scanned documents tab following today's visit. GENETIC COUNSELING RISK ASSESSMENT, DISCUSSION, AND SUGGESTED FOLLOW UP: We reviewed the natural history and genetic etiology of sporadic, familial and hereditary cancer syndromes. The patient's personal and family history is potentially suggestive of: a hereditary cancer syndrome The patient meets NCCN HBOC testing criteria based on his personal history of pancreatic cancer. We discussed that identification of a hereditary cancer syndrome may help his care providers tailor his medical management. If a mutation is detected, the National Comprehensive Cancer Network and/or expert opinion recommendations would include increased cancer surveillance and targeted treatment options. If a mutation is detected, the patient will be referred back to the referring provider and to any additional appropriate care providers to discuss the relevant options. Inheritance of hereditary cancer syndromes was discussed with the patient. If a mutation is not found in the patient, this will decrease the likelihood of a hereditary cancer syndrome as the explanation for the patient's personal history of pancreatic cancer. However, it cannot completely rule out this possibility. Cancer surveillance options would be discussed for the patient according to the appropriate standard National Comprehensive Cancer Network and [place] [employer] guidelines, with consideration of their personal and family history risk factors. In this case, the patient will be referred back to their care providers for discussions of management. Based on this assessment of the patient's family and personal history, genetic testing is recommended. The patient was offered Integrated BRACAnalysis with myRisk through [facility] or DETECT Common Hereditary Cancers Panel with preliminary evidence pancreatic cancer genes through [facility]. After considering the risks, benefits, and limitations, the patient chose to go home and think further about genetic testing. The patient will call me if he decides to pursue genetic testing. An addendum will be added to the clinic note at that time. We discussed that an NGS panel can rarely result in an unexpected finding in a gene which may or may not be related to the presenting phenotype. The patient was seen for a total of 30 minutes, greater than 50% of which was spent [id number] counseling. This plan is being carried out per Dr. Vanita Mishra's recommendations. This note will also be sent to the referring provider via the electronic medical record. Yael Ochoa, [facility] CC: Dr. Pb Mishra [facility] Vital Signs Date Time Vital Sign Value Performing Clinician Faci lity 05-30-2025 13:22-0400 Body mass index (BMI) [Ratio] 27.5 kg/m2 Nialm Harrington CAR TESTER.TRANSIT CLERK Work Phone: [facility] 05-30-2025 13:22-0400 Body temperature 98.49 [degF] Phyllis Harrington CAR TESTER.TRANSIT CLERK Work Phone: [facility] 05-30-2025 13:22-0400 Body weight 90.1 kg Phyllis Harrington CAR TESTER.TRANSIT CLERK Work Phone: [facility] 05-30-2025 13:22-0400 Diastolic blood pressure 84 mm[Hg] Phyllis Harrington CAR TESTER.TRANSIT CLERK Work Phone: [facility] 05-30-2025 13:22-0400 Heart rate 70 /min Nilam Velezenter CAR TESTER.TRANSIT CLERK Work Phone: [facility] 05-30-2025 13:22-0400 Systolic blood pressure 137 mm[Hg] Phyllis Harrington CAR TESTER.TRANSIT CLERK Work Phone: [facility] 11-17-2024 08:26-0500 Body height 181 cm Pb Masci DO Work Phone: [facility] 11-17-2024 08:26-0500 Body mass index (BMI) [Ratio] 28.24 kg/m2 Pb Masci DO Work Phone: [facility] 11-17-2024 08:26-0500 Body temperature 98.6 [degF] Pb Masci DO Work Phone: [facility] 11-17-2024 08:26-0500 Body weight 92.53 kg Pb Masci DO Work Phone: [facility] 11-17-2024 08:26-0500 Diastolic blood pressure 79 mm[Hg] Pb Masci DO Work Phone: [facility] 11-17-2024 08:26-0500 Heart rate 70 /min Pb Masci DO Work Phone: [facility] 11-17-2024 08:26-0500 SaO2% (BldA) [Mass fraction] 98 % Pb Kruse DO Work Phone: [facility] 11-17-2024 08:26-0500 Systolic blood pressure 147 mm[Hg] Pb Kruse DO Work Phone: [facility] 05-09-2024 08:38-0400 Body mass index (BMI) [Ratio] 29.38 kg/m2 Phyllis Harrington CAR TESTER.TRANSIT CLERK Work Phone: [facility] 05-09-2024 08:38-0400 Body temperature 97.81 [degF] Nilam Harrington CAR TESTER.TRANSIT CLERK Work Phone: [facility] 05-09-2024 08:38-0400 Body weight 96.89 kg Phyllis Harrington CAR TESTER.TRANSIT CLERK Work Phone: [facility] 05-09-2024 08:38-0400 Diastolic blood pressure 75 mm[Hg] Phyllis Harrington CAR TESTER.TRANSIT CLERK Work Phone: [facility] 05-09-2024 08:38-0400 Heart rate 60 /min Nilam Harrington CAR TESTER.TRANSIT CLERK Work Phone: [facility] 05-09-2024 08:38-0400 SaO2% (BldA) [Mass fraction] 97 % Nliam Harrington CAR TESTER.TRANSIT CLERK Work Phone: [facility] 05-09-2024 08:38-0400 Systolic blood pressure 146 mm[Hg] Nilam Harrington CAR TESTER.TRANSIT CLERK Work Phone: [facility] 11-06-2022 09:22-0500 Body height 181 cm Anila Simms MD Work Phone: [facility] 11-06-2022 09:22-0500 Body temperature 98.91 [degF] Anila Simms MD Work Phone: [facility] 11-06-2022 09:22-0500 Body weight 100.25 kg Anila Simms MD Work Phone: [facility] 11-06-2022 09:22-0500 Diastolic blood pressure 84 mm[Hg] Anila Simms MD Work Phone: [facility] 11-06-2022 09:22-0500 Heart rate 69 /min Anila Simms MD Work Phone: [facility] 11-06-2022 09:22-0500 SaO2% (BldA) [Mass fraction] 95 % Anila Simms MD Work Phone: [facility] 11-06-2022 09:22-0500 Systolic blood pressure 135 mm[Hg] Anila Simms MD Work Phone: [facility] 05-08-2022 11:10-0400 Body temperature 98.1 [degF] Anila Simms MD Work Phone: [facility] 05-08-2022 11:10-0400 Body weight 100.02 kg Anila Simms MD Work Phone: [facility] 05-08-2022 11:10-0400 Diastolic blood pressure 79 mm[Hg] Anila Simms MD Work Phone: [facility] 05-08-2022 11:10-0400 Heart rate 74 /min Anila Simms MD Work Phone: [facility] 05-08-2022 11:10-0400 Systolic blood pressure 140 mm[Hg] Anila Simms MD Work Phone: [facility] Encounters Encounter Date Encounter Type Care Provider Facility Start: 05-30-2025 End: 05-30-2025 Follow-up encounter Nilam Harrington APRN.CNP Work Phone: Hematology/Oncology Comment on above: Encounter for follow -up surveillance of pancreatic cancer (Primary Dx); Malignant neoplasm of head of pancreas (HCC); 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) Start: 05-30-2025 End: 05-30-2025 Patient encounter procedure Nilam Harrington APRN.CNP Work Phone: Hematology/Oncology Start: 05-30-2025 End: 05-30-2025 ambulatory [facility] Facility:[facility] Start: 05-17-2025 End: 05-17-2025 [facility] Facility:[facility] Start: 05-17-2025 End: 05-17-2025 Subsequent hospital visit by physician Ct Prep [facility] Cat Scan Comment on above: Malignant neoplasm o f head of pancreas (HCC) [C25.0] Start: 01-02-2025 End: 01-02-2025 ambulatory Antony Messer Facility:[facility] Start: 11-17-2024 End: 11-17-2024 ambulatory Pb Kruse DO Work Phone: Hematology/Oncology Comment on above: Malignant neoplasm o f head of pancreas (HCC) (Primary Dx); 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); Other chronic pulmonary embolism without acute cor pulmonale (HCC) Start: 11-17-2024 End: 11-17-2024 Patient encounter procedure Pb Kruse DO Work Phone: Hematology/Oncology Start: 11-08-2024 End: 11-08-2024 ambulatory ANTONY Abdiel MESSER Facility:[facility] Start: 11-08-2024 End: 11-08-2024 Subsequent hospital visit by physician [facility] ([facility]) Work Phone: Cat Scan Comment on above: Malignant neoplasm o f head of pancreas (HCC) [C25.0] Start: 09-09-2024 End: 09-11-2024 Refill Nilam Harrington APRN.TRANSIT CLERK Work Phone: Hematology/Oncology Comment on above: Refill Request Start: 07-15-2024 End: 07-15-2024 ambulatory ANTONY Abdiel MESSER Facility:[facility] Start: 05-09-2024 End: 05-09-2024 ambulatory Nilam Harrington APRN.TRANSIT CLERK Work Phone: Hematology/Oncology Comment on above: Malignant neoplasm o f head of pancreas (HCC) (Primary Dx); 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) Start: 05-09-2024 End: 05-09-2024 Patient encounter procedure Nilam Harrington APRN.TRANSIT CLERK Work Phone: Hematology/Oncology Start: 05-03-2024 End: 05-03-2024 Subsequent hospital visit by physician Ct Prep [facility] Cat Scan Comment on above: Malignant neoplasm o f head of pancreas (HCC) [C25.0], 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] Start: 10-26-2023 End: 10-26-2023 Subsequent hospital visit by physician [facility] ([facility]) Work Phone: Cat Scan Comment on above: Malignant neoplasm o f head of pancreas (HCC) [C25.0] Start: 10-22-2023 Orders Only Pb Corbin Work Phone: Hematology/Oncology Comment on above: Malignant neoplasm o f head of pancreas (HCC) (Primary Dx); 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); Other chronic pulmonary embolism without acute cor pulmonale (HCC); Chemotherapy-induced neuropathy (HCC) Start: 05-13-2023 Telephone encounter Pb tobias DO Work Phone: Hematology/Oncology Comment on above: AVS 05/13 Start: 11-06-2022 Telephone encounter Sherri Anguiano Hematology/Oncology Comment on above: Orders Start: 11-06-2022 End: 11-06-2022 ambulatory Anila Simms MD Work Phone: Hematology/Oncology Comment on above: Malignant neoplasm o f head of pancreas (HCC) (Primary Dx); 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) Start: 11-06-2022 End: 11-06-2022 Patient encounter procedure Anila Simms MD Work Phone: [facility] [employer] Start: 09-22-2022 Refill Pb Lentz O Work Phone: Hematology/Oncology Comment on above: Refill Request Start: 05-08-2022 End: 05-08-2022 Anticoagulant drug monitoring Anila Simms MD Work Phone: Hematology/Oncology Comment on above: Malignant neoplasm o f head of pancreas (HCC) (Primary Dx); 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); Chronic anticoagulation Start: 05-08-2022 End: 05-08-2022 Patient encounter procedure Anila Simms MD Work Phone: [facility] [employer] Start: 03-18-2022 Telephone encounter Pb tobias DO Work Phone: Hematology/Oncology Comment on above: Refill Request Start: 07-02-2012 End: 12-13-[address] ([facility]) Work Phone: [facility] Procedures Date Procedure Procedure Detail Performing Clinician Start: 07-15-2024 Lipid 1996 panel - S sushil or Plasma Nilam Harrington CAR TESTERRICO Work Phone: Start: 05-05-2022 Adult depression screening assessment Anila Simms MD Work Phone: Start: 11-05-2021 Adult depression screening assessment Pb Kruse DO Work Phone: Start: 01-28-2021 H/O: surgery H/O resection of pancreas Pb Kruse DO Work Phone: Start: 04-29-2010 Colonoscopy Pb Kruse DO Work Phone: H/O: surgery H/O resection of pancreas Sherri RAMÍREZ Plan of Treatment Date Care Activity Detail Author Start: 01-11-2034 Urine microalbumin profile DTaP,Tdap,Td Vaccine (2 - Td or Tdap) [facility] Start: 07-15-2029 Lipid panel Lipid Screening [facility] Start: 05-17-2028 [facility] Start: 11-08-2027 [facility] Start: 2027 RSV Vaccine (1 - 1-d ose 75+ series) RSV Vaccine (1 - 1-dose 75+ series) [facility] Start: 05-03-2027 Diabetes Screening [facility] Start: 10-26-2026 Diabetes Screening [facility] Start: 05-08-2026 DIABETES SCREEN DIABETES SCREEN [facility] Start: 05-08-2026 Diabetes Screening [facility] Start: 12-04-2025 End: 12-04-2025 ambulatory 12/04/2025 8:50 AM EST Visit (SP) Office Hematology/Oncology [address] [place] [address] Pb Kruse DO [address] [place] [address] 6 MTH OV* LABS 11/30/2024 Hematology/Oncology Comment on above: 6 MTH OV* LABS 2024 Start: 11-30-2025 End: 03-01-2026 Creatinine and Glomerular filtration rate.predicted panel - Serum, Plasma or Blood CREATININE BLD Lab Routine Malignant neoplasm of head of pancreas (HCC) 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) Expected: 11/30/2025 (Approximate), Expires: 03/01/2026 [facility] Comment on above: Expected: 11/30/2025 (Approximate), Expires: 03/01/2026 Start: 11-30-2025 End: 06-29-2026 CT Abdomen and Pelvis W contrast IV CT ABD/PEL W IVCON Radiology Routine Encounter for follow-up surveillance of pancreatic cancer Malignant neoplasm of head of pancreas (HCC) 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) Expected: 11/30/2025 (Approximate), Expires: 06/29/[address] [facility] Work Phone: Comment on above: Expected: 11/30/2025 (Approximate), Expires: 06/29/2026 Start: 11-30-2025 End: 06-29-2026 CT Chest W contrast IV CT CHEST W IVCON Radiology Routine Encounter for follow-up surveillance of pancreatic cancer Malignant neoplasm of head of pancreas (HCC) 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) Expected: 11/30/2025 (Approximate), Expires: 06/29/2026 [facility] Comment on above: Expected: 11/30/2025 (Approximate), Expires: 06/29/2026 Start: 11-30-2025 End: 11-30-2025 Patient encounter procedure Cat Scan Comment on above: CT CHEST / ABD / PEL CT CHEST/ ABD / PEL Start: 11-30-2025 End: 11-30-2025 ambulatory 11/30/2025 8:30 AM EST Results Only [facility] [address] [place] [address] CBC/CMP/CA19-9. [facility] Comment on above: CBC/CMP/CA19-9. Start: 11-03-2025 DIABETES SCREEN DIABETES SCREEN [facility] Start: 07-17-2025 Influenza vaccination Influenza Vacc ine (#1) [facility] Start: 05-24-2025 End: 05-24-2025 ambulatory 05/24/2025 8:30 AM EDT Visit (SP) Office Hematology/Oncology [address] [place] [address] Nilam Harrington APRN.TRANSIT CLERK [address] [place] [address] 6MO OV/CT& LAB 05/17* Hematology/Oncology Comment on above: 6MO OV/CT& LAB 05/17* Start: 05-17-2025 End: 05-17-2025 Patient encounter procedure Cat Scan Comment on above: Malignant neoplasm o f head of pancreas (HCC) [C25.0] Start: 05-17-2025 End: 05-17-2025 ambulatory 05/17/2025 7:45 AM EDT Results Only [facility] [place] [facility] [address] [place] [address] CBC/CMP/CA 19-9/ [facility] Comment on above: CBC/CMP/CA 19-9/ Start: 05-06-2025 DIABETES SCREEN DIABETES SCREEN [facility] Start: 11-17-2024 End: 11-17-2024 ambulatory 11/17/2024 8:30 AM EST Visit (SP) Office Hematology/Oncology [address] [place] [address] Pb Kruse DO [address] [place] [address] 6 MO OV /CT & lab 11/08* r/s from 11/14 Hematology/Oncology Comment on above: 6 MO OV /CT & lab * r/s from 11/14 Start: 11-16-2024 Advance Directive Discussion Advance Directive Discussion [facility] Start: 11-16-2024 Medicare Advantage Annual Wellness Visit Medicare Advantage Annual Wellness Visit [facility] Start: 11-14-2024 End: 11-14-2024 ambulatory 11/14/2024 8:50 AM EST Visit (SP) Office Hematology/Oncology [address] [place] [address] Pb Kruse DO [address] [place] [place] [address] 6 MO OV *CT & lab 11/08 Hematology/Oncology Comment on above: 6 MO OV *CT & lab Start: 11-08-2024 End: 02-07-2025 CREATININE BLD CREATININE BLD Lab Routine Malignant neoplasm of head of pancreas (HCC) 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) Expected: 11/08/2024 (Approximate), Expires: 02/07/2025 [facility] Comment on above: Expected: 11/08/2024 (Approximate), Expires: 02/07/2025 Start: 11-08-2024 End: 11-08-2024 Patient encounter procedure Cat Scan Comment on above: Malignant neoplasm o f head of pancreas (HCC) [C25.0]; 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) [C78.01] Start: 11-08-2024 End: 11-08-2024 ambulatory 11/08/2024 7:45 AM EST Results Only [facility] [address] [place] [address] CBC/CMP/CA19-9 [facility] Comment on above: CBC/CMP/CA19-9 Start: 11-04-2024 DIABETES SCREEN DIABETES SCREEN [facility] Start: 07-17-2024 Covid-19 Vaccine ( season) Covid-19 Vaccine () [facility] Start: 07-17-2024 Influenza vaccination C [facility] Start: 05-09-2024 End: 05-09-2024 ambulatory 05/09/2024 8:30 AM EDT Visit (SP) Office Hematology/Oncology [address] [place] [address] Nilam Harrington, IRENE.TRANSIT CLERK [address] [place] [address] 6 MO OV/LAB&CT SCAN 05/03* Hematology/Oncology Comment on above: 6 MO OV/LAB&CT SCAN 05/03* Start: 11-16-2023 Advance Directive Discussion Advance Directive Discussion [facility] Start: 11-16-2023 Behavioral Health Screening Behavioral Health Screening [facility] Start: 10-26-2023 End: 01-25-2024 Cancer Ag 19-9 [Units/volume] in Serum or Plasma CA 19-9 BLD Lab Routine Malignant neoplasm of head of pancreas (HCC) 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) Other chronic pulmonary embolism without acute cor pulmonale (HCC) Chemotherapy-induced neuropathy (HCC) Expected: 10/26/2023, Expires: 01/25/[address] 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 Work Phone: Comment on above: Expected: 10/26/2023 , Expires: 01/25/2024 Start: 07-17-2023 Covid-19 Vaccine () Covid-19 Vaccine ( season) [facility] Start: 07-17-2023 Influenza vaccination C [facility] Start: 05-07-2023 End: 12-06-2023 Ct abdomen & pelvis w/contrast material CT ABD/PEL W IVCON Radiology Routine Malignant neoplasm of head of pancreas (HCC) Malignant neoplasm of upper lobe of right lung (HCC) H/O resection of pancreas Expected: 05/07/2023, Expires: 12/06/[address] [facility] Work Phone: Comment on above: Expected: 05/07/2023 , Expires: 12/06/2023 Start: 05-07-2023 End: 12-06-2023 CT CHEST W IVCON CT CHEST W IVCON Radiology Routine Malignant neoplasm of head of pancreas (HCC) Malignant neoplasm of upper lobe of right lung (HCC) H/O resection of pancreas Expected: 05/07/2023, Expires: 12/06/[address] [facility] Work Phone: Comment on above: Expected: 05/07/2023 , Expires: 12/06/2023 Start: 05-05-2023 Adult depression screening assessment DEPRESSION SCREENING [facility] Start: 11-16-2022 ADVANCE DIRECTIVE DISCUSSION ADVANCE DIRECTIVE DISCUSSION [facility] Start: 11-16-2022 DEPRESSION ASSESSMENT DEPRESSION ASS ESSMENT [facility] Start: 11-07-2022 End: 06-07-2023 Ct abdomen & pelvis w/contrast material CT ABD/PEL W IVCON Radiology Routine Malignant neoplasm of head of pancreas (HCC) 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) Expected: 11/07/2022, Expires: 06/07/[address] [facility] Work Phone: Comment on above: Expected: 11/07/2022 , Expires: 06/07/2023 Start: 11-07-2022 End: 06-07-2023 Ct thorax w/contrast material CT CHEST W IVCON Radiology Routine Malignant neoplasm of head of pancreas (HCC) 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) Expected: 11/07/2022, Expires: 06/07/[address] [facility] Work Phone: Comment on above: Expected: 11/07/2022 , Expires: 06/07/2023 Start: 11-05-2022 Adult depression screening assessment DEPRESSION SCREENING [facility] Start: 07-17-2022 Influenza vaccination C [facility] Start: 11-16-2021 ADVANCE DIRECTIVE DISCUSSION ADVANCE DIRECTIVE DISCUSSION [facility] Start: 11-16-2021 DEPRESSION ASSESSMENT DEPRESSION ASS ESSMENT [facility] Start: 2017 Pneumococcal Vaccine : 65+ (1 - PCV) Pneumococcal Vaccine: 65+ (1 - PCV) [facility] Start: 2017 PNEUMOCOCCAL: 65+ (1 - PCV) PNEUMOCOCCAL: 65+ (1 - PCV) [facility] Start: 2017 PNEUMOVAX AGE 65 AND OVER WITH 5YR LOOKBACK (#1) PNEUMOVAX AGE 65 AND OVER WITH 5YR LOOKBACK (#1) [facility] Start: 2012 RSV Vaccine (1 - 1-d ose 60+ series) RSV Vaccine (1 - 1-dose 60+ series) [facility] Start: 04-29-2011 Colonoscopy COLONOSCOPY [facility] Start: 04-29-2011 COLORECTAL CANCER SCREENING COLORECTAL CANCER SCREENING [facility] Start: 04-29-2011 Screening for malign ant neoplasm of colon [facility] Start: 2002 SHINGRIX VACCINE (1 of 2) SHINGRIX VACCINE (1 of 2) [facility] Start: 1997 COLOGUARD (FIT-DNA) COLOGUARD (FIT-D NA) [facility] Start: [address] COLONOGRAPHY [facility] Start: 1997 FECAL OCCULT BLOOD FECAL OCCULT BLOO D [facility] Start: 1997 Screening for malign ant neoplasm of colon [facility] Start: 1997 SIGMOIDOSCOPY SIGMOIDOSCOPY [facility] Start: 1987 Lipid 1996 panel - S sushil or Plasma Lipid Screening [facility] Start: 1987 Lipid panel Lipid Screening [facility] Start: 1987 LIPID SCREEN LIPID SCREEN [facility] Start: 1971 SHINGRIX VACCINE (1 of 2) SHINGRIX VACCINE (1 of 2) [facility] Start: 1971 Urine microalbumin profile [facility] Start: 1970 Anxiety Screening Anxiety Screening [facility] Start: 1970 Depression Screening Depression Scre ening [facility] Start: 1958 PNEUMOCOCCAL: 65+ (1 - PCV) PNEUMOCOCCAL: 65+ (1 - PCV) [facility] Start: 1957 COVID-19 VACCINE (#1) COVID-19 VACCI NE (#1) [facility] Start: 1957 COVID-19 VACCINE (1) COVID-19 VACCIN E (1) [facility] Start: 1952 COVID-19 VACCINE (#1) COVID-19 VACCI NE (#1) [facility] Start: 1952 ABDOMINAL AORTIC ANEURYSM SCREENING ABDOMINAL AORTIC ANEURYSM SCREENING [facility] Start: 1952 Abdominal aortic aneurysm screening Abdominal Aortic Aneurysm Screening [facility] Ct abdomen & pelvis w/contrast material CT ABD/PEL W IVCON Radiology Routine Malignant neoplasm of head of pancreas (HCC) 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) 10/26/2023 9:41 AM EST [facility] Work Phone: CT Abdomen and Pelvi s W contrast IV CT ABD/PEL W IVCON Radiology Routine Malignant neoplasm of head of pancreas (HCC) 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) 05/03/2024 9:41 AM EDT [facility] Work Phone: End: 06-08-2025 CT Abdomen and Pelvis W contrast IV CT ABD/PEL W IVCON Radiology Routine Malignant neoplasm of head of pancreas (HCC) 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) 1 Occurrences starting 05/09/2024 until 06/08/[address] [facility] Work Phone: Comment on above: 1 Occurrences starti ng 05/09/2024 until 06/08/2025 CT Abdomen and Pelvi s W contrast IV CT ABD/PEL W IVCON Radiology Routine Malignant neoplasm of head of pancreas (HCC) 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) 11/08/2024 9:30 AM EST [facility] Work Phone: End: 12-18-2025 CT Abdomen and Pelvis W contrast IV CT ABD/PEL W IVCON Radiology Routine Malignant neoplasm of head of pancreas (HCC) 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) 1 Occurrences starting 11/17/2024 until 12/18/2025 [facility] Comment on above: 1 Occurrences starti ng 11/17/2024 until 12/18/2025 CT Abdomen and Pelvi s W contrast IV CT ABD/PEL W IVCON Radiology Routine Malignant neoplasm of head of pancreas (HCC) 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) 05/17/2025 9:52 AM EDT [facility] CT Chest W contrast IV CT CHEST W IVCON Radiology Routine Malignant neoplasm of head of pancreas (HCC) 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) 05/03/2024 9:41 AM EDT [facility] End: 06-08-2025 CT Chest W contrast IV CT CHEST W IVCON Radiology Routine Malignant neoplasm of head of pancreas (HCC) 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) 1 Occurrences starting 05/09/2024 until 06/08/2025 [facility] Comment on above: 1 Occurrences starti ng 05/09/2024 until 06/08/2025 CT Chest W contrast IV CT CHEST W IVCON Radiology Routine Malignant neoplasm of head of pancreas (HCC) 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) 11/08/2024 9:30 AM EST [facility] End: 12-17-2025 CT Chest W contrast IV CT CHEST W IVCON Radiology Routine Malignant neoplasm of head of pancreas (HCC) 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) 1 Occurrences starting 11/17/2024 until 12/17/[address] [facility] Work Phone: Comment on above: 1 Occurrences starti ng 11/17/2024 until 12/17/2025 CT Chest W contrast IV CT CHEST W IVCON Radiology Routine Malignant neoplasm of head of pancreas (HCC) 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) 05/17/2025 9:52 AM EDT [facility] Work Phone: CT CHEST W IVCON CT CHEST W IVCO N Radiology Routine Malignant neoplasm of head of pancreas (HCC) 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) 10/26/2023 9:41 AM EST [facility] Work Phone: [facility] Payers Date Payer Category Payer Self-pay 2022 Medicare (Managed Care) [employer] PPO [id number] 2022 Medicare [id number] 2019 Unknown MMO [employer]MO [employer] [id number] 2019-Present [phone] [address] [place] [address] PPO [id number] 2017 Medicare [id number] Unknown [id number] Social History Date Type Detail Facility Start: 07-08-2012 Tobacco smoking stat [facility] Ex-smoker [facility] Work Phone: Start: 11-30-1968 End: 11-30-1974 History of tobacco use Current smoker [facility] Work Phone: Start: 11-30-1968 End: 11-30-1974 History of tobacco use Cigarette Smoker [facility] Work Phone: Start: 11-06-2021 End: 05-30-2025 Alcohol intake Current drinker of alcohol (finding) [facility] Start: 11-06-2021 End: 05-08-2023 Alcohol intake [facility] Start: 07-12-2012 History SDOH Alcohol Comment only very rarely, none since diagnosis [facility] Start: 1950 Sex Assigned At Not on file C [facility] Start: 07-08-2012 Tobacco use and exposure Smokeless tobacco non-user [facility] Start: 05-08-2023 End: 05-13-2023 Tobacco use panel [facility] Adult Depression Screening Assessment 0 [facility] Start: 01-02-2021 Sexual orientation Heterosexual (twyla zuñiga) [facility] Functional Status Date Assessment Result Facility 02-04-2021 Are you deaf, or do you have serious difficulty hearing No 02/04/2021 11:11 AM Carmela Hauser APRN.TRANSIT CLERK No [facility] Work Phone: 02-04-2021 Are you blind, or do you have serious difficulty seeing, even when wearing glasses No 02/04/2021 11:11 AM Carmela Hauser APRN.TRANSIT CLERK No [facility] 02-04-2021 Do you have serious difficulty walking or climbing stairs No 02/04/2021 11:11 AM Carmela Hauser APRN.TRANSIT CLERK No [facility] 02-04-2021 Do you have difficul ty dressing or bathing No 02/04/2021 11:11 AM Carmela Hauser APRN.TRANSIT CLERK No [facility] 02-04-2021 Because of a physica l, mental, or emotional condition, do you have difficulty doing errands alone such as visiting a physician's office or shopping No 02/04/2021 11:11 AM Carmela Hauser APRN.TRANSIT CLERK No [facility] Mental Status Date Assessment Result Facility 02-04-2021 Because of a physica l, mental, or emotional condition, do you have serious difficulty concentrating, remembering, or making decisions No 02/04/2021 11:11 AM Carmela Hauser APRN.DENISE No [facility] Clinical Notes 10-29-2015 to 05-30-2025 Nilam Harrington, IRENE.TRANSIT CLERK - 05/30/2025 1:32 PM Pb [place] DO - 11/17/2024 8:32 AM Janna Armstrong, RT(R) - 11/08/2024 9:00 AM Nilam Romero APRN.DENISE - 05/09/2024 8:59 AM EDT Note Date & Type Note Facility 05-30-2025 Note HNO ID: [id number] Author: NILAM HARRINGTON APRN.DENISE Service: ? Author Type: Nurse Practitioner Type: Progress Notes Filed: 05/30/2025 14:03 Note Text: Chief Complaint Patient presents with: Established Patient HPI: Chela Herrera is a 75 year old male who presents here today for follow up pancreas cancer. Per Dr. Kruse's previous note: H/o significant for DVT. He underwent evaluation for dyspepsia characterized by reflux and excessive belching along with cramping in the upper abdomen in the spring. He also developed dark urine and light-colored stools and was found to have elevated LFTs. Ultimately underwent a pylorus preserving pancreaticoduodenectomy on 06/03/2012. Previous therapy: 1) Gemcitabine x1 cycle followed by concurrent 5-FU/radiation (completed 09/23/2012). Gemcitabine x1 cycle. He underwent a CT scan of the chest as well as a CT pancreas because of an increase in CA 19-9 earlier this year. The value was still within the normal range but the highest is been since his surgery and up to 10 units from the previous year. CT pancreas on 11/08/2020 revealed an atrophic pancreatic body and tail with few calcifications in the pancreatic tail. There was a small amount of air in the pancreatic duct which was mildly dilated. No other abnormality except for a few nonobstructing right renal calculi less than or equal to 3 mm in diameter. There was also a 1.5 cm right renal cortical cyst. CT of the chest on 11/08/2020 showed within the posterior right upper lobe there was a mildly lobulated slightly spiculated mass measuring 1.6 x 1.5 x 1.1 cm. There were superior mediastinal lymph nodes observed the largest of which was to the right of the origin of the brachiocephalic artery measuring about 1 cm in diameter. There were multiple nonenlarged middle mediastinal lymph nodes. Patient underwent CT-guided fine-needle aspiration of the lung nodule on 11/27/2020. Pathology: FINAL DIAGNOSIS A. RIGHT UPPER LOBE LUNG, FINE NEEDLE ASPIRATE (THINPREP,SMEARS AND CELL BLOCK) Positive for malignant cells. Adenocarcinoma with mucinous features. COMMENT Intracytoplasmic mucin in present in many of the malignant cells. The prior pancreatic adenocarcinoma ([id number]) was reviewed and focally shows morphologic similarity to the current lesion, but the morphology is not specific as to the sight of origin. Scant tumor is present in the cell block. TTF-1 immunohistochemistry will be attempted and reported in an addendum. Material will be also be submitted for molecular studies. Insufficient tissue for TTF-1 testing. PET 12/18/2020: NECK: Physiologic uptake seen in the visualized brain, parapharyngeal soft tissues, base of tongue, vocal cords, and salivary glands. No hypermetabolic cervical lymphadenopathy or hypermetabolic masses. No focal hypermetabolic thyroid lesion. CHEST: Physiologic uptake in the heart and mediastinal blood pool. Lungs, tracheobronchial tree and pleura: A hypermetabolic nodule, measuring 1.4 x 1.4 cm, having maximum SUV of is noted in the posterior aspect of the right upper lobe, having maximum SUV of 4.5. Small area of cavitation is noted within this nodule. Small amount of patchy opacification is noted in the posterior basilar portion of the right lower lobe with minimal FDG uptake with maximum SUV of 1.9, nonspecific, however likely of infectious/inflammatory etiology or sequela of previous infectious/inflammatory etiology. Please note that PET/CT is not sensitive for pulmonary nodules less than 8 mm. Mediastinum and Lymph nodes: Few small mildly hypermetabolic right paratracheal lymph notes with maximum SUV of 4.1; largest measuring approximately 14 x 10 mm. Small prevascular lymph nodes with maximum SUV of 4. Mild FDG uptake is identified in the right hilar region, with maximum SUV of 3.6. Chest wall and axilla: No hypermetabolic lesions. ABDOMEN AND PELVIS: Physiologic uptake seen in the and GI tracts. Liver: No hypermetabolic mass. Small amount of pneumobilia is noted. Biliary: Gallbladder is not identified. Intrahepatic biliary millimeter area, compatible with pneumobilia. Spleen: No hypermetabolic mass. No splenomegaly. Pancreas: Atrophic pancreatic body and tail with few calcifications in the region of the pancreatic tail. Patient is status post resection of the proximal pancreas/pancreatic head.. Adrenals: No hypermetabolic lesions. Kidneys: No right or left hydronephrosis. Tiny calcifications in the right kidney, likely a nonobstructing renal calculi.. GI tract: No dilation or wall thickening. The appendix is normal in size and caliber. Lymph nodes: No hypermetabolic abdominal or pelvic lymphadenopathy. Mesentery/Peritoneum: No ascites or hypermetabolic mass lesions. Vasculature: Vascular patency cannot be assessed due to lack of I (more content not included)... [facility] 05-30-2025 History of Present illness Narrative Chief Complaint Patient presents with: Established Patient HPI: Chela Herrera is a 75 year old male who presents here today for follow up pancreas cancer. Per Dr. Kruse's previous note: H/o significant for DVT. He underwent evaluation for dyspepsia characterized by reflux and excessive belching along with cramping in the upper abdomen in the spring. He also developed dark urine and light-colored stools and was found to have elevated LFTs. Ultimately underwent a pylorus preserving pancreaticoduodenectomy on 06/03/2012. Previous therapy: 1) Gemcitabine x1 cycle followed by concurrent 5-FU/radiation (completed 09/23/2012). Gemcitabine x1 cycle. He underwent a CT scan of the chest as well as a CT pancreas because of an increase in CA 19-9 earlier this year. The value was still within the normal range but the highest is been since his surgery and up to 10 units from the previous year. CT pancreas on 11/08/2020 revealed an atrophic pancreatic body and tail with few calcifications in the pancreatic tail. There was a small amount of air in the pancreatic duct which was mildly dilated. No other abnormality except for a few nonobstructing right renal calculi less than or equal to 3 mm in diameter. There was also a 1.5 cm right renal cortical cyst. CT of the chest on 11/08/2020 showed within the posterior right upper lobe there was a mildly lobulated slightly spiculated mass measuring 1.6 x 1.5 x 1.1 cm. There were superior mediastinal lymph nodes observed the largest of which was to the right of the origin of the brachiocephalic artery measuring about 1 cm in diameter. There were multiple nonenlarged middle mediastinal lymph nodes. Patient underwent CT-guided fine-needle aspiration of the lung nodule on 11/27/2020. Pathology: FINAL DIAGNOSIS A. RIGHT UPPER LOBE LUNG, FINE NEEDLE ASPIRATE (THINPREP,SMEARS AND CELL BLOCK) Positive for malignant cells. Adenocarcinoma with mucinous features. COMMENT Intracytoplasmic mucin in present in many of the malignant cells. The prior pancreatic adenocarcinoma ([id number]) was reviewed and focally shows morphologic similarity to the current lesion, but the morphology is not specific as to the sight of origin. Scant tumor is present in the cell block. TTF-1 immunohistochemistry will be attempted and reported in an addendum. Material will be also be submitted for molecular studies. Insufficient tissue for TTF-1 testing. PET 12/18/2020: NECK: Physiologic uptake seen in the visualized brain, parapharyngeal soft tissues, base of tongue, vocal cords, and salivary glands. No hypermetabolic cervical lymphadenopathy or hypermetabolic masses. No focal hypermetabolic thyroid lesion. CHEST: Physiologic uptake in the heart and mediastinal blood pool. Lungs, tracheobronchial tree and pleura: A hypermetabolic nodule, measuring 1.4 x 1.4 cm, having maximum SUV of is noted in the posterior aspect of the right upper lobe, having maximum SUV of 4.5. Small area of cavitation is noted within this nodule. Small amount of patchy opacification is noted in the posterior basilar portion of the right lower lobe with minimal FDG uptake with maximum SUV of 1.9, nonspecific, however likely of infectious/inflammatory etiology or sequela of previous infectious/inflammatory etiology. Please note that PET/CT is not sensitive for pulmonary nodules less than 8 mm. Mediastinum and Lymph nodes: Few small mildly hypermetabolic right paratracheal lymph notes with maximum SUV of 4.1; largest measuring approximately 14 x 10 mm. Small prevascular lymph nodes with maximum SUV of 4. Mild FDG uptake is identified in the right hilar region, with maximum SUV of 3.6. Chest wall and axilla: No hypermetabolic lesions. ABDOMEN AND PELVIS: Physiologic uptake seen in the and GI tracts. Liver: No hypermetabolic mass. Small amount of pneumobilia is noted. Biliary: Gallbladder is not identified. Intrahepatic biliary millimeter area, compatible with pneumobilia. Spleen: No hypermetabolic mass. No splenomegaly. Pancreas: Atrophic pancreatic body and tail with few calcifications in the region of the pancreatic tail. Patient is status post resection of the proximal pancreas/pancreatic head.. Adrenals: No hypermetabolic lesions. Kidneys: No right or left hydronephrosis. Tiny calcifications in the right kidney, likely a nonobstructing renal calculi.. GI tract: No dilation or wall thickening. The appendix is normal in size and caliber. Lymph nodes: No hypermetabolic abdominal or pelvic lymphadenopathy. Mesentery/Peritoneum: No ascites or hypermetabolic mass lesions. Vasculature: Vascular patency cannot be assessed due to lack of IV contrast. There are atherosclerotic calcifications without aneurysmal dilation. Pelvis: No hypermetabolic mass, ascites or fluid collection. BONES AND EXTREMITIES: Mild FDG uptake is identified in the medial aspect of the left clavicle, with maximum SUV of 3.8; ill-defined area of sclerosis is identified in the accompanying CT in this region (series 3, image [id number]). MRI Brain 12/14/2020: No evidence of intracranial metastatic disease. Underwent right upper lobectomy. Pathology based on same K-rachana mutation and his primary pancreatic tumor and be lung tumor highly suggestive of late metastatic recurrence of pancreas cancer. Presents for ongoing oncologic management. OV 10/2023: Cymbalta helped neuropathy of the feet, but caused fatigue. He stopped it. Capsaicin initially helped, but then started to burn too much. Using OTC Magnalife foot cream--helps some in the evenings. No respiratory symptoms. He is active and has no functional limitations. No abdominal symptoms. Appetite is normal. No heartburn or reflux. Bowels working normally. No black or bloody stools. Continues on apixaban for history of PE and malignancy. No unusual bleeding or unexplained bruising. No new concerns today. Pt. here today with spouse. Appetite:Good. Wt. up 5# since Nov. Energy level:Good. Denies fevers or recent illness. Resp:denies cough or sob Cardiac:denies chest pain/palpitations GI:denies abd pain, n/v, moving bowels regularly :denies dysuria/hematuria Extrem:denies new pain Neuro:+neuropathy to feet stable Skin:denies bleeding Heme:denies bleeding, on xarelto The ROS is otherwise negative. Past medical history, appointments, medications, allergies reviewed. No changes. EXAM: BP 137/84 Pulse 70 Temp 36.9 C (98.5 F) (Oral) Wt 90.1 kg (198 lb 10.2 oz) BMI 27.50 kg/m APPEARANCE Well appearing, alert, in no acute distress, well-hydrated, well nourished. HEART RRR with normal S1 and S2, no murmurs LUNG clear to auscultation LYMPH NODES No cervical lymphadenopathy, No supraclavicular lymphadenopathy, and No axillary lymphadenopathy. ABDOMEN bowel sounds normoactive, soft, non-tender EXTREMITIES No edema NEURO Awake, alert and oriented x 3, Normal gait, and No involuntary motions. SKIN Skin color, texture, turgor normal, no suspicious rashes or lesions LABS: Latest Ref Rng 05/03/2024 11/08/2024 05/17/2025 WBC 3.70 - 11.00 k/uL 4.73 5.16 4.77 RBC 4.20 - 6.00 m/uL 4.78 4.94 4.67 Hemoglobin 13.0 - 17.0 g/dL 15.1 15.1 14.5 Hematocrit 39.0 - 51.0 % 43.6 44.6 42.4 MCV 80.0 - 100.0 fL 91.2 90.3 90.8 MCH 26.0 - 34.0 pg 31.6 30.6 31.0 MCHC 30.5 - 36.0 g/dL 34.6 33.9 34.2 RDW-CV 11.5 - 15.0 % 13.4 13.8 13.5 Platelet Count 150 - 400 k/uL 208 229 212 MPV 9.0 - 12.7 fL 9.0 8.6 (L) 8.8 (L) Neut% % 47.9 51.3 51.2 Abs Neut (ANC) 1.45 - 7.50 k/uL 2.26 2.65 2.44 Lymph% % 37.4 34.7 36.1 Abs Lymph 1.00 - 4.00 k/uL 1.77 1.79 1.72 Major% % 11.4 10.5 9.6 Abs Major <0.87 k/uL 0.54 0.54 0.46 Eosin% % 2.3 2.5 2.5 Abs Eosin <0.46 k/uL 0.11 0.13 0.12 Baso% % 0.8 0.6 0.6 Abs Baso <0.11 k/uL 0.04 0.03 0.03 Immature Gran % % 0.2 0.4 0.0 IMMATURE GRANS (ABS) <0.10 k/uL <0.03 <0.03 <0.03 NRBC /100 WBC 0.0 0.0 0.0 Absolute nRBC <0.01 k/uL <0.01 <0.01 <0.01 DTYPE Auto Auto Auto Latest Ref Rng 11/08/2024 05/17/2025 Protein, Total 6.3 - 8.0 g/dL 6.9 6.8 Albumin 3.9 - 4.9 g/dL 4.1 4.1 Calcium 8.5 - 10.2 mg/dL 9.1 9.3 Bilirubin, Total 0.2 - 1.3 mg/dL 0.6 0.3 Alkaline Phosphatase 38 - 113 U/L 98 85 AST 14 - 40 U/L 35 24 ALT 10 - 54 U/L 37 26 Glucose 74 - 99 mg/dL 117 (H) 123 (H) BUN 9 - 24 mg/dL 19 19 Creatinine 0.73 - 1.22 mg/dL 1.05 1.04 Sodium 136 - 144 mmol/L 138 141 Potassium 3.7 - 5.1 mmol/L 4.6 4.4 Chloride 98 - 107 mmol/L 105 109 (H) CO2 22 - 30 mmol/L 24 22 Anion Gap 8 - 15 mmol/L 9 10 eGFR >=60 mL/min/1.73m 75 76 Latest Ref Rng 05/03/2024 11/08/2024 05/17/2025 CA19-9 <36.0 U/mL 12.0 10.0 9.0 RADIOLOGY: CT chest/abd/pelvis 05/17/25: IMPRESSION: 1. No evidence of recurrent or metastatic malignancy in the chest, abdomen, or pelvis. 2. Bilateral nonobstructing nephroliths. ASSESSMENT/PLAN: 1. Encounter for follow-up surveillance of pancreatic cancer - ICD9: V67.59, V10.09, ICD10: Z08, Z85.07 (primary diagnosis) 2. Malignant neoplasm of head of pancreas (HCC) - ICD9: 157.0, ICD10: C25.0 3. 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 Kruse's previous note: Assessment: -KPS is 100%. -In summary the patient is a 73-year-old male who received adjuvant gemcitabine and radiation for stage IIB resected pancreas cancer. 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 -Reviewed CT scans in detail. Note made of celiac artery stenosis. He is asymptomatic from this. Plan: -Repeat CBC, CMP, CA19.9 & CT chest abdomen and pelvis w/ and office visit in about 6 months. -Follow-up with PCP for blood pressure and other general health care management. (I27.82) Other chronic pulmonary embolism without acute cor pulmonale (HCC) Assessment: -History of pulmonary embolism approximately year before diagnosis of pancreas cancer. -Tolerating rivaroxaban and without side effect. Plan: -Continue Xarelto. - No concerning findings on exam. - Reviewed labs/CT's with pt. and family member. - No bleeding issues on xarelto. Tolerating well. - Continue xarelto. - Continue follow up with PCP for routine care. - CT's in 6 months. - Follow up with Dr. Kruse after CT's with CBC/CMP/CA19-9. - Pt. aware to call office with any questions/concerns. The patient indicates understanding of these issues and agrees with the plan. All documentation from previous visit of 11/17/24-Dr. Kruse was copied and pasted, documentation has been reviewed and edited as necessary for today's visit. Nilam Harrington APRN.TRANSIT CLERK documented in this encounter [facility] 11-17-2024 Note HNO ID: [id number] Author: PB KRUSE, DO Service: ? Author Type: Physician Type: Progress Notes Filed: 11/17/2024 08:59 Note Text: iagnosis: 1) Stage IIB pancreas cancer. 2) Recurrent VTE. HPI: The patient is a 74 year-old male who had a past medical history significant for DVT. He underwent evaluation for dyspepsia characterized by reflux and excessive belching along with cramping in the upper abdomen in the spring. He also developed dark urine and light-colored stools and was found to have elevated LFTs. Ultimately underwent a pylorus preserving pancreaticoduodenectomy on 06/03/2012. Previous therapy: 1) Gemcitabine x1 cycle followed by concurrent 5-FU/radiation (completed 09/23/2012). Gemcitabine x1 cycle. He underwent a CT scan of the chest as well as a CT pancreas because of an increase in CA 19-9 earlier this year. The value was still within the normal range but the highest is been since his surgery and up to 10 units from the previous year. CT pancreas on 11/08/2020 revealed an atrophic pancreatic body and tail with few calcifications in the pancreatic tail. There was a small amount of air in the pancreatic duct which was mildly dilated. No other abnormality except for a few nonobstructing right renal calculi less than or equal to 3 mm in diameter. There was also a 1.5 cm right renal cortical cyst. CT of the chest on 11/08/2020 showed within the posterior right upper lobe there was a mildly lobulated slightly spiculated mass measuring 1.6 x 1.5 x 1.1 cm. There were superior mediastinal lymph nodes observed the largest of which was to the right of the origin of the brachiocephalic artery measuring about 1 cm in diameter. There were multiple nonenlarged middle mediastinal lymph nodes. Patient underwent CT-guided fine-needle aspiration of the lung nodule on 11/27/2020. Pathology: FINAL DIAGNOSIS A. RIGHT UPPER LOBE LUNG, FINE NEEDLE ASPIRATE (THINPREP,SMEARS AND CELL BLOCK) Positive for malignant cells. Adenocarcinoma with mucinous features. COMMENT Intracytoplasmic mucin in present in many of the malignant cells. The prior pancreatic adenocarcinoma ([id number]) was reviewed and focally shows morphologic similarity to the current lesion, but the morphology is not specific as to the sight of origin. Scant tumor is present in the cell block. TTF-1 immunohistochemistry will be attempted and reported in an addendum. Material will be also be submitted for molecular studies. Insufficient tissue for TTF-1 testing. PET 12/18/2020: NECK: Physiologic uptake seen in the visualized brain, parapharyngeal soft tissues, base of tongue, vocal cords, and salivary glands. No hypermetabolic cervical lymphadenopathy or hypermetabolic masses. No focal hypermetabolic thyroid lesion. CHEST: Physiologic uptake in the heart and mediastinal blood pool. Lungs, tracheobronchial tree and pleura: A hypermetabolic nodule, measuring 1.4 x 1.4 cm, having maximum SUV of is noted in the posterior aspect of the right upper lobe, having maximum SUV of 4.5. Small area of cavitation is noted within this nodule. Small amount of patchy opacification is noted in the posterior basilar portion of the right lower lobe with minimal FDG uptake with maximum SUV of 1.9, nonspecific, however likely of infectious/inflammatory etiology or sequela of previous infectious/inflammatory etiology. Please note that PET/CT is not sensitive for pulmonary nodules less than 8 mm. Mediastinum and Lymph nodes: Few small mildly hypermetabolic right paratracheal lymph notes with maximum SUV of 4.1; largest measuring approximately 14 x 10 mm. Small prevascular lymph nodes with maximum SUV of 4. Mild FDG uptake is identified in the right hilar region, with maximum SUV of 3.6. Chest wall and axilla: No hypermetabolic lesions. ABDOMEN AND PELVIS: Physiologic uptake seen in the and GI tracts. Liver: No hypermetabolic mass. Small amount of pneumobilia is noted. Biliary: Gallbladder is not identified. Intrahepatic biliary millimeter area, compatible with pneumobilia. Spleen: No hypermetabolic mass. No splenomegaly. Pancreas: Atrophic pancreatic body and tail with few calcifications in the region of the pancreatic tail. Patient is status post resection of the proximal pancreas/pancreatic head.. Adrenals: No hypermetabolic lesions. Kidneys: No right or left hydronephrosis. Tiny calcifications in the right kidney, likely a nonobstructing renal calculi.. GI tract: No dilation or wall thickening. The appendix is normal in size and caliber. Lymph nodes: No hypermetabolic abdominal or pelvic lymphadenopathy. Mesentery/Peritoneum: No ascites or hypermetabolic mass lesions. Vasculature: Vascular patency cannot be assessed due to lack of IV contrast. There are atherosclerotic calcifications without aneurysmal dilation. Pelvi (more content not included)... [facility] 11-17-2024 History of Present illness Narrative iagnosis: 1) Stage IIB pancreas cancer. 2) Recurrent VTE. HPI: The patient is a 74 year-old male who had a past medical history significant for DVT. He underwent evaluation for dyspepsia characterized by reflux and excessive belching along with cramping in the upper abdomen in the spring. He also developed dark urine and light-colored stools and was found to have elevated LFTs. Ultimately underwent a pylorus preserving pancreaticoduodenectomy on 06/03/2012. Previous therapy: 1) Gemcitabine x1 cycle followed by concurrent 5-FU/radiation (completed 09/23/2012). Gemcitabine x1 cycle. He underwent a CT scan of the chest as well as a CT pancreas because of an increase in CA 19-9 earlier this year. The value was still within the normal range but the highest is been since his surgery and up to 10 units from the previous year. CT pancreas on 11/08/2020 revealed an atrophic pancreatic body and tail with few calcifications in the pancreatic tail. There was a small amount of air in the pancreatic duct which was mildly dilated. No other abnormality except for a few nonobstructing right renal calculi less than or equal to 3 mm in diameter. There was also a 1.5 cm right renal cortical cyst. CT of the chest on 11/08/2020 showed within the posterior right upper lobe there was a mildly lobulated slightly spiculated mass measuring 1.6 x 1.5 x 1.1 cm. There were superior mediastinal lymph nodes observed the largest of which was to the right of the origin of the brachiocephalic artery measuring about 1 cm in diameter. There were multiple nonenlarged middle mediastinal lymph nodes. Patient underwent CT-guided fine-needle aspiration of the lung nodule on 11/27/2020. Pathology: FINAL DIAGNOSIS A. RIGHT UPPER LOBE LUNG, FINE NEEDLE ASPIRATE (THINPREP,SMEARS AND CELL BLOCK) Positive for malignant cells. Adenocarcinoma with mucinous features. COMMENT Intracytoplasmic mucin in present in many of the malignant cells. The prior pancreatic adenocarcinoma ([id number]) was reviewed and focally shows morphologic similarity to the current lesion, but the morphology is not specific as to the sight of origin. Scant tumor is present in the cell block. TTF-1 immunohistochemistry will be attempted and reported in an addendum. Material will be also be submitted for molecular studies. Insufficient tissue for TTF-1 testing. PET 12/18/2020: NECK: Physiologic uptake seen in the visualized brain, parapharyngeal soft tissues, base of tongue, vocal cords, and salivary glands. No hypermetabolic cervical lymphadenopathy or hypermetabolic masses. No focal hypermetabolic thyroid lesion. CHEST: Physiologic uptake in the heart and mediastinal blood pool. Lungs, tracheobronchial tree and pleura: A hypermetabolic nodule, measuring 1.4 x 1.4 cm, having maximum SUV of is noted in the posterior aspect of the right upper lobe, having maximum SUV of 4.5. Small area of cavitation is noted within this nodule. Small amount of patchy opacification is noted in the posterior basilar portion of the right lower lobe with minimal FDG uptake with maximum SUV of 1.9, nonspecific, however likely of infectious/inflammatory etiology or sequela of previous infectious/inflammatory etiology. Please note that PET/CT is not sensitive for pulmonary nodules less than 8 mm. Mediastinum and Lymph nodes: Few small mildly hypermetabolic right paratracheal lymph notes with maximum SUV of 4.1; largest measuring approximately 14 x 10 mm. Small prevascular lymph nodes with maximum SUV of 4. Mild FDG uptake is identified in the right hilar region, with maximum SUV of 3.6. Chest wall and axilla: No hypermetabolic lesions. ABDOMEN AND PELVIS: Physiologic uptake seen in the and GI tracts. Liver: No hypermetabolic mass. Small amount of pneumobilia is noted. Biliary: Gallbladder is not identified. Intrahepatic biliary millimeter area, compatible with pneumobilia. Spleen: No hypermetabolic mass. No splenomegaly. Pancreas: Atrophic pancreatic body and tail with few calcifications in the region of the pancreatic tail. Patient is status post resection of the proximal pancreas/pancreatic head.. Adrenals: No hypermetabolic lesions. Kidneys: No right or left hydronephrosis. Tiny calcifications in the right kidney, likely a nonobstructing renal calculi.. GI tract: No dilation or wall thickening. The appendix is normal in size and caliber. Lymph nodes: No hypermetabolic abdominal or pelvic lymphadenopathy. Mesentery/Peritoneum: No ascites or hypermetabolic mass lesions. Vasculature: Vascular patency cannot be assessed due to lack of IV contrast. There are atherosclerotic calcifications without aneurysmal dilation. Pelvis: No hypermetabolic mass, ascites or fluid collection. BONES AND EXTREMITIES: Mild FDG uptake is identified in the medial aspect of the left clavicle, with maximum SUV of 3.8; ill-defined area of sclerosis is identified in the accompanying CT in this region (series 3, image [id number]). MRI Brain 12/14/2020: No evidence of intracranial metastatic disease. Underwent right upper lobectomy. Pathology based on same K-rachana mutation and his primary pancreatic tumor and be lung tumor highly suggestive of late metastatic recurrence of pancreas cancer. Presents for ongoing oncologic management. OV 10/2023: Cymbalta helped neuropathy of the feet, but caused fatigue. He stopped it. Capsaicin initially helped, but then started to burn too much. Using OTC Magnalife foot cream--helps some in the evenings. No respiratory symptoms. He is active and has no functional limitations. No abdominal symptoms. Appetite is normal. No heartburn or reflux. Bowels working normally. No black or bloody stools. Continues on apixaban for history of PE and malignancy. No unusual bleeding or unexplained bruising. Presents for ongoing oncologic management. Interim history: Left knee has been normal. No nausea or vomiting. No reflux. Denies abdominal pain and in particular postprandial abdominal pain. Bowels are working normally. Remains on pancreatic enzyme replacement. No significant diarrhea. No unusual bleeding or unexplained bruising. No respiratory symptoms. He remains active. No cough, wheezing or shortness of breath with exertion. Symptoms of neuropathy in the feet have improved somewhat. He attributes this to using a foot massager. PMH, medications and allergies personally reviewed by me today. Any changes documented in appropriate section. Family history: significant for breast cancer in a sister at young age and prostate cancer in a brother ROS: Constitutional: No acute illnesses since last seen. No episodes of recurring fever. No night sweats. Neuro: Denies REGALADO, vertigo. HEENT: No recent change in voice, vision or hearing. Resp: See above. CVS: Denies exertional chest pain and LE edema. GI: See above. : No dysuria or gross hematuria. Endo: No hot flashes. Musculoskeletal: Denies bone, back, joint and muscular pain. Heme: See above. Derm: No rash. Psych: Normal mood. PHYSICAL EXAM: VITALS. Blood pressure 147/79, pulse 70, temperature 37 C (98.6 F), temperature source Temporal, height 181 cm (5' 11.26), weight 92.5 kg (204 lb), SpO2 98%. EYES: Sclerae are anicteric bilaterally. LYMPHATIC: There is no palpable cervical or supraclavicular adenopathy. RESPIRATORY: Normal respiratory excursion. CARDIOVASCULAR: Rhythm is regular. ABDOMEN: The abdomen is nondistended. There is no organomegaly. No tenderness. Extremities: Free of edema. SKIN: No jaundice. ASSESSMENT/PLAN: (C25.0) Malignant neoplasm of head of pancreas (HCC) (primary encounter diagnosis) (C78.01) 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) Assessment: -KPS is 100%. -In summary the patient is a 73-year-old male who received adjuvant gemcitabine and radiation for stage IIB resected pancreas cancer. 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 -Reviewed CT scans in detail. Note made of celiac artery stenosis. He is asymptomatic from this. Plan: -Repeat CBC, CMP, CA19.9 & CT chest abdomen and pelvis w/ and office visit in about 6 months. -Follow-up with PCP for blood pressure and other general health care management. (I27.82) Other chronic pulmonary embolism without acute cor pulmonale (HCC) Assessment: -History of pulmonary embolism approximately year before diagnosis of pancreas cancer. -Tolerating rivaroxaban and without side effect. Plan: -Continue Xarelto. Portions of this documentation were copied and pasted from my previous office visit note dated 11/02/2023 in order to provide a cohesive continuity of the history. The note has been reviewed and edited and updated as necessary. I spent a total of 20 minutes on the date of the service which included preparing to see the patient, [id number] patient care, completing clinical documentation, obtaining and/or reviewing separately obtained history, performing a medically appropriate examination, ordering medications, tests, or procedures, communicating with other HCPs (not separately reported), and communicating results to the patient/family/caregiver. Pb Kruse DO documented in this encounter [facility] 11-08-2024 History of Present illness Narrative Radiology Service Progress Note DATE OF SERVICE: November 08, 2024 TIME: 10:37 AM PATIENT IDENTITY VERIFICATION COMPLETED USING TWO (2) STANDARD IDENTIFIERS: Name and Date of confirmed by patient verbally. FALL SCREENING: Has the patient had 2 falls in the last year or 1 fall with injury or currently using an Ambulatory Assistive Device (Walker, Cane, Wheelchair, Crutches, etc.)? No PATIENT GENDER DATA: Male PATIENT RELEVANT IMPLANT DATA REVIEWED: Yes PATIENT PRESENTS WITH AN IMPLANTABLE OR ATTACHED REEL AND REWINDER OPERATOR: No ALLERGIES: Reviewed and unchanged CONTRAST ALLERGY: NO. EXAM: CT -CONTRAST INDUCED NEPHROPATHY RISK FACTORS: Patient age > 60 years CREATININE: Creatinine Date Value Ref Range Status 11/08/2024 1.05 0.73 - 1.22 mg/dL Final 05/03/2024 1.25 (H) 0.73 - 1.22 mg/dL Final 11/02/2023 1.26 (H) 0.73 - 1.22 mg/dL Final Estimated Glomerular Filtration Rate Date Value Ref Range Status 11/08/2024 75 >=60 mL/min/1.73m Final Comment: Estimated Glomerular Filtration Rate (eGFR) is calculated using the 2020 CKD-EPI creatinine equation. This equation utilizes serum creatinine, sex, and age as parameters. The creatinine assay has traceable calibration to isotope dilution-mass spectrometry. Refer to KDIGO guidelines for clinical interpretation. In patients with unstable renal function, e.g. those with acute kidney injury, the eGFR may not accurately reflect actual GFR. eGFR- Date Value Ref Range Status 11/04/2021 >60 Final P.O.C.T. RESULTS: POC done: Yes, See Lab Tab November 08, 2024 TREATMENT: N/A PERIPHERAL IV DATA: Ambulatory: A peripheral IV was started in the Left antecubital site with a Angio cath: 22 gauge. RADIOLOGY DEPARTMENT: CT; Exam(s) Completed: Chest Abdomen Pelvis SIGNATURE: RT Brianna([place]) PATIENT NAME: Chela Herrera DATE: November 08, 2024 TIME: 10:37 AM documented in this encounter [facility] 11-08-2024 Note HNO ID: [id number] Author: JANNA BHARDWAJ RT(R) Service: ? Author Type: Director Education Type: Progress Notes Filed: 11/08/2024 10:38 Note Text: Radiology Service Progress Note DATE OF SERVICE: November 08, 2024 TIME: 10:37 AM PATIENT IDENTITY VERIFICATION COMPLETED USING TWO (2) STANDARD IDENTIFIERS: Name and Date of confirmed by patient verbally. FALL SCREENING: Has the patient had 2 falls in the last year or 1 fall with injury or currently using an Ambulatory Assistive Device (Walker, Cane, Wheelchair, Crutches, etc.)? No PATIENT GENDER DATA: Male PATIENT RELEVANT IMPLANT DATA REVIEWED: Yes PATIENT PRESENTS WITH AN IMPLANTABLE OR ATTACHED REEL AND REWINDER OPERATOR: No ALLERGIES: Reviewed and unchanged CONTRAST ALLERGY: NO. EXAM: CT -CONTRAST INDUCED NEPHROPATHY RISK FACTORS: Patient age > 60 years CREATININE: Creatinine Date Value Ref Range Status 11/08/2024 1.05 0.73 - 1.22 mg/dL Final 05/03/2024 1.25 (H) 0.73 - 1.22 mg/dL Final 11/02/2023 1.26 (H) 0.73 - 1.22 mg/dL Final Estimated Glomerular Filtration Rate Date Value Ref Range Status 11/08/2024 75 >=60 mL/min/1.73m? Final Comment: Estimated Glomerular Filtration Rate (eGFR) is calculated using the 2020 CKD-EPI creatinine equation. This equation utilizes serum creatinine, sex, and age as parameters. The creatinine assay has traceable calibration to isotope dilution-mass spectrometry. Refer to KDIGO guidelines for clinical interpretation. In patients with unstable renal function, e.g. those with acute kidney injury, the eGFR may not accurately reflect actual GFR. eGFR- Date Value Ref Range Status 11/04/2021 >60 Final P.O.C.T. RESULTS: POC done: Yes, See Lab Tab November 08, 2024 TREATMENT: N/A PERIPHERAL IV DATA: Ambulatory: A peripheral IV was started in the Left antecubital site with a Angio cath: 22 gauge. RADIOLOGY DEPARTMENT: CT; Exam(s) Completed: Chest Abdomen Pelvis SIGNATURE: RT Brianna(R) PATIENT NAME: Chela Herrera DATE: November 08, 2024 TIME: 10:37 AM [facility] 05-09-2024 History of Present illness Narrative Chief Complaint Patient presents with: Established Patient HPI: Chela Herrera is a 73 year old male who presents here today for follow up pancreas cancer. Per Dr. Kruse's previous note: H/o DVT. He underwent evaluation for dyspepsia characterized by reflux and excessive belching along with cramping in the upper abdomen in the spring. He also developed dark urine and light-colored stools and was found to have elevated LFTs. Ultimately underwent a pylorus preserving pancreaticoduodenectomy on 06/03/2012. Previous therapy: 1) Gemcitabine x1 cycle followed by concurrent 5-FU/radiation (completed 09/23/2012). Gemcitabine x1 cycle. He underwent a CT scan of the chest as well as a CT pancreas because of an increase in CA 19-9 earlier this year. The value was still within the normal range but the highest is been since his surgery and up to 10 units from the previous year. CT pancreas on 11/08/2020 revealed an atrophic pancreatic body and tail with few calcifications in the pancreatic tail. There was a small amount of air in the pancreatic duct which was mildly dilated. No other abnormality except for a few nonobstructing right renal calculi less than or equal to 3 mm in diameter. There was also a 1.5 cm right renal cortical cyst. CT of the chest on 11/08/2020 showed within the posterior right upper lobe there was a mildly lobulated slightly spiculated mass measuring 1.6 x 1.5 x 1.1 cm. There were superior mediastinal lymph nodes observed the largest of which was to the right of the origin of the brachiocephalic artery measuring about 1 cm in diameter. There were multiple nonenlarged middle mediastinal lymph nodes. Patient underwent CT-guided fine-needle aspiration of the lung nodule on 11/27/2020. Pathology: FINAL DIAGNOSIS A. RIGHT UPPER LOBE LUNG, FINE NEEDLE ASPIRATE (THINPREP,SMEARS AND CELL BLOCK) Positive for malignant cells. Adenocarcinoma with mucinous features. COMMENT Intracytoplasmic mucin in present in many of the malignant cells. The prior pancreatic adenocarcinoma ([id number]) was reviewed and focally shows morphologic similarity to the current lesion, but the morphology is not specific as to the sight of origin. Scant tumor is present in the cell block. TTF-1 immunohistochemistry will be attempted and reported in an addendum. Material will be also be submitted for molecular studies. Insufficient tissue for TTF-1 testing. PET 12/18/2020: NECK: Physiologic uptake seen in the visualized brain, parapharyngeal soft tissues, base of tongue, vocal cords, and salivary glands. No hypermetabolic cervical lymphadenopathy or hypermetabolic masses. No focal hypermetabolic thyroid lesion. CHEST: Physiologic uptake in the heart and mediastinal blood pool. Lungs, tracheobronchial tree and pleura: A hypermetabolic nodule, measuring 1.4 x 1.4 cm, having maximum SUV of is noted in the posterior aspect of the right upper lobe, having maximum SUV of 4.5. Small area of cavitation is noted within this nodule. Small amount of patchy opacification is noted in the posterior basilar portion of the right lower lobe with minimal FDG uptake with maximum SUV of 1.9, nonspecific, however likely of infectious/inflammatory etiology or sequela of previous infectious/inflammatory etiology. Please note that PET/CT is not sensitive for pulmonary nodules less than 8 mm. Mediastinum and Lymph nodes: Few small mildly hypermetabolic right paratracheal lymph notes with maximum SUV of 4.1; largest measuring approximately 14 x 10 mm. Small prevascular lymph nodes with maximum SUV of 4. Mild FDG uptake is identified in the right hilar region, with maximum SUV of 3.6. Chest wall and axilla: No hypermetabolic lesions. ABDOMEN AND PELVIS: Physiologic uptake seen in the and GI tracts. Liver: No hypermetabolic mass. Small amount of pneumobilia is noted. Biliary: Gallbladder is not identified. Intrahepatic biliary millimeter area, compatible with pneumobilia. Spleen: No hypermetabolic mass. No splenomegaly. Pancreas: Atrophic pancreatic body and tail with few calcifications in the region of the pancreatic tail. Patient is status post resection of the proximal pancreas/pancreatic head.. Adrenals: No hypermetabolic lesions. Kidneys: No right or left hydronephrosis. Tiny calcifications in the right kidney, likely a nonobstructing renal calculi.. GI tract: No dilation or wall thickening. The appendix is normal in size and caliber. Lymph nodes: No hypermetabolic abdominal or pelvic lymphadenopathy. Mesentery/Peritoneum: No ascites or hypermetabolic mass lesions. Vasculature: Vascular patency cannot be assessed due to lack of IV contrast. There are atherosclerotic calcifications without aneurysmal dilation. Pelvis: No hypermetabolic mass, ascites or fluid collection. BONES AND EXTREMITIES: Mild FDG uptake is identified in the medial aspect of the left clavicle, with maximum SUV of 3.8; ill-defined area of sclerosis is identified in the accompanying CT in this region (series 3, image [id number]). MRI Brain 12/14/2020: No evidence of intracranial metastatic disease. Underwent right upper lobectomy. Pathology based on same K-rachana mutation and his primary pancreatic tumor and be lung tumor highly suggestive of late metastatic recurrence of pancreas cancer. No new concerns today. Pt. here today with spouse. Appetite:Too good. I'm trying to do better portion control. Wt. down 9# since 2022. Energy level:Good. Denies fevers or recent illness. Resp:denies cough or sob Cardiac:denies chest pain/palpitations GI:denies abd pain, n/v, moving bowels regularly :denies dysuria/hematuria Extrem:denies pain Neuro:+toes-stable Skin:denies rashes Heme:denies bleeding, on xarelto The ROS is otherwise negative. Past medical history, appointments, medications, allergies reviewed. No changes. EXAM: BP 146/75 Pulse 60 Temp 36.6 C (97.8 F) (Temporal) Wt 96.9 kg (213 lb 9.6 oz) SpO2 97% BMI 29.38 kg/m APPEARANCE Well appearing, alert, in no acute distress, well-hydrated, well nourished. HEART RRR with normal S1 and S2, no murmurs LUNG clear to auscultation LYMPH NODES No cervical lymphadenopathy, No supraclavicular lymphadenopathy, and No axillary lymphadenopathy. ABDOMEN bowel sounds normoactive, soft, non-tender, non-distended EXTREMITIES No edema NEURO Awake, alert and oriented x 3, Normal gait, and No involuntary motions. SKIN Skin color, texture, turgor normal, no suspicious rashes or lesions LABS: Latest Ref Rng 10/26/2023 05/03/2024 WBC 3.70 - 11.00 k/uL 6.61 4.73 RBC 4.20 - 6.00 m/uL 4.92 4.78 Hemoglobin 13.0 - 17.0 g/dL 15.5 15.1 Hematocrit 39.0 - 51.0 % 45.0 43.6 MCV 80.0 - 100.0 fL 91.5 91.2 MCH 26.0 - 34.0 pg 31.5 31.6 MCHC 30.5 - 36.0 g/dL 34.4 34.6 RDW-CV 11.5 - 15.0 % 13.4 13.4 Platelet Count 150 - 400 k/uL 218 208 MPV 9.0 - 12.7 fL 8.8 (L) 9.0 Neut% % 53.8 47.9 Abs Neut (ANC) 1.45 - 7.50 k/uL 3.56 2.26 Lymph% % 33.3 37.4 Abs Lymph 1.00 - 4.00 k/uL 2.20 1.77 Major% % 9.4 11.4 Abs Major <0.87 k/uL 0.62 0.54 Eosin% % 2.4 2.3 Abs Eosin <0.46 k/uL 0.16 0.11 Baso% % 0.6 0.8 Abs Baso <0.11 k/uL 0.04 0.04 Immature Gran % % 0.5 0.2 IMMATURE GRANS (ABS) <0.10 k/uL 0.03 <0.03 NRBC /100 WBC 0.0 0.0 Absolute nRBC <0.01 k/uL <0.01 <0.01 DTYPE Auto Auto Latest Ref Rng 10/26/2023 05/03/2024 Protein, Total 6.3 - 8.0 g/dL 7.0 6.9 Albumin 3.9 - 4.9 g/dL 4.1 4.1 Calcium 8.5 - 10.2 mg/dL 9.0 9.4 Bilirubin, Total 0.2 - 1.3 mg/dL 0.4 0.5 Alkaline Phosphatase 38 - 113 U/L 75 87 AST 14 - 40 U/L 30 30 ALT 10 - 54 U/L 42 31 Glucose 74 - 99 mg/dL 117 (H) 116 (H) BUN 9 - 24 mg/dL 21 16 Creatinine 0.73 - 1.22 mg/dL 1.33 (H) 1.25 (H) Sodium 136 - 144 mmol/L 139 139 Potassium 3.7 - 5.1 mmol/L 4.3 4.9 Chloride 98 - 107 mmol/L 105 106 CO2 22 - 30 mmol/L 24 25 Anion Gap 8 - 15 mmol/L 10 8 eGFR >=60 mL/min/1.73m 57 (L) 62 Latest Ref Rng 05/08/2023 10/26/2023 05/03/2024 CA19-9 <36.0 U/mL 13.0 13.0 12.0 RADIOLOGY: CT chest 05/03/24: IMPRESSION: No appreciable recurrent or metastatic malignancy in the chest, abdomen, or pelvis. CT abd/pelvis 05/03/24: IMPRESSION: No appreciable recurrent or metastatic malignancy in the chest, abdomen, or pelvis. ASSESSMENT/PLAN: 1. Malignant neoplasm of head of pancreas (HCC) - ICD9: 157.0, ICD10: C25.0 (primary diagnosis) 2. 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 Kruse's previous note: Assessment: -KPS is 100%. -In summary the patient is a 73-year-old male who received adjuvant gemcitabine and radiation for stage IIB resected pancreas cancer. 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 -His neuropathy has been stable. -Small increase in serum Cr. No NSAID use. -Discussed RSV and Covid vaccination. He declines. Also declines influenza vaccination. -However he would like to get Shingrix. Plan: -Repeat CBC, CMP, CA19.9 & CT chest abdomen and pelvis w/ and office visit in about 6 months. -Discuss with PCP other health care issues including serum Cr and Shingrix vaccination (I27.82) Other chronic pulmonary embolism without acute cor pulmonale (HCC) Assessment: -Patient had a history of pulmonary embolism approximately year before diagnosis of pancreas cancer. -Tolerating rivaroxaban and without side effect. Plan: -Continue Xarelto. - No new concerning findings on exam. - Reviewed labs/CT's with pt. and spouse. - Continue xarelto. - Continue follow up with PCP for routine care. - CT's chest/abd/pelvis/CBC/CMP/CA19-9 in 6 months. - Follow up at least one week later for OV with Dr. Kruse or myself. - Pt. aware to call office with any questions/concerns. The patient indicates understanding of these issues and agrees with the plan. All documentation from previous visit of 11/02/24-Dr. Kruse was copied and pasted, documentation has been reviewed and edited as necessary for today's visit. Nilam Harrington APRN.CNP documented in this encounter [facility] 05-03-2024 History of Present illness Narrative Radiology Service Progress Note DATE OF SERVICE: May 03, 2024 TIME: 1:11 PM PATIENT IDENTITY VERIFICATION COMPLETED USING TWO (2) STANDARD IDENTIFIERS: Name and Date of confirmed by patient verbally. FALL SCREENING: Has the patient had 2 falls in the last year or 1 fall with injury or currently using an Ambulatory Assistive Device (Walker, Cane, Wheelchair, Crutches, etc.)? No PATIENT GENDER DATA: Male PATIENT RELEVANT IMPLANT DATA REVIEWED: Yes PATIENT PRESENTS WITH AN IMPLANTABLE OR ATTACHED REEL AND REWINDER OPERATOR: No ALLERGIES: Reviewed and unchanged CONTRAST ALLERGY: NO. EXAM: CT -CONTRAST INDUCED NEPHROPATHY RISK FACTORS: Patient age > 60 years CREATININE: Creatinine Date Value Ref Range Status 05/03/2024 1.25 (H) 0.73 - 1.22 mg/dL Final 11/02/2023 1.26 (H) 0.73 - 1.22 mg/dL Final 10/26/2023 1.33 (H) 0.73 - 1.22 mg/dL Final Estimated Glomerular Filtration Rate Date Value Ref Range Status 05/03/2024 62 >=60 mL/min/1.73m Final Comment: Estimated Glomerular Filtration Rate (eGFR) is calculated using the 2020 CKD-EPI creatinine equation. This equation utilizes serum creatinine, sex, and age as parameters. The creatinine assay has traceable calibration to isotope dilution-mass spectrometry. Refer to KDIGO guidelines for clinical interpretation. In patients with unstable renal function, e.g. those with acute kidney injury, the eGFR may not accurately reflect actual GFR. eGFR- Date Value Ref Range Status 11/04/2021 >60 Final P.O.C.T. RESULTS: POC done: Yes, See Lab Tab May 03, 2024 TREATMENT: N/A PERIPHERAL IV DATA: Ambulatory: A peripheral IV was started in the Left antecubital site with a Angio cath: 22 gauge. RADIOLOGY DEPARTMENT: CT; Exam(s) Completed: Chest Abdomen Pelvis SIGNATURE: RT Brianna([place]) PATIENT NAME: Chela Herrera DATE: May 03, 2024 TIME: 1:11 PM documented in this encounter [facility] 10-26-2023 History of Present illness Narrative Radiology Service Progress Note DATE OF SERVICE: October 26, 2023 TIME: 4:13 PM PATIENT IDENTITY VERIFICATION COMPLETED USING TWO (2) STANDARD IDENTIFIERS: Name and Date of confirmed by patient verbally. FALL SCREENING: Has the patient had 2 falls in the last year or 1 fall with injury or currently using an Ambulatory Assistive Device (Walker, Cane, Wheelchair, Crutches, etc.)? No PATIENT GENDER DATA: Male PATIENT RELEVANT IMPLANT DATA REVIEWED: Yes ALLERGIES: Reviewed and unchanged CONTRAST ALLERGY: NO. EXAM: CT -CONTRAST INDUCED NEPHROPATHY RISK FACTORS: Patient age > 60 years CREATININE: Creatinine Date Value Ref Range Status 10/26/2023 1.33 (H) 0.73 - 1.22 mg/dL Final 05/08/2023 1.16 0.73 - 1.22 mg/dL Final 11/03/2022 1.14 0.73 - 1.22 mg/dL Final Estimated Glomerular Filtration Rate Date Value Ref Range Status 10/26/2023 57 (L) >=60 mL/min/1.73m Final Comment: Estimated Glomerular Filtration Rate (eGFR) is calculated using the 2020 CKD-EPI creatinine equation. This equation utilizes serum creatinine, sex, and age as parameters. The creatinine assay has traceable calibration to isotope dilution-mass spectrometry. Refer to KDIGO guidelines for clinical interpretation. In patients with unstable renal function, e.g. those with acute kidney injury, the eGFR may not accurately reflect actual GFR. eGFR- Date Value Ref Range Status 11/04/2021 >60 Final P.O.C.T. RESULTS: POC done: Yes, See Lab Tab October 26, 2023 TREATMENT: N/A PERIPHERAL IV DATA: Ambulatory: A peripheral IV was started in the Left antecubital site with a Angio cath: 22 gauge. RADIOLOGY DEPARTMENT: CT; Exam(s) Completed: Chest Abdomen Pelvis SIGNATURE: RT Brianna(R) PATIENT NAME: Chela Herrera DATE: October 26, 2023 TIME: 4:13 PM documented in this encounter [facility] 05-15-2023 Miscellaneous Notes Pt called and confirmed Scheduled CT and labs and requested. Message left for patient to contact office to confirm appointments. Check out comments: CBC/CMP/CA19-9 CTs then OV in about 6 months. OV scheduled 11/02. Once CT orders are signed please schedule pt for labs and ct wk prior to ov. Pt wants earliest possible. Once completed please document in this encounter. Thank you! documented in this encounter [facility] 11-07-2022 Miscellaneous Notes Spoke with patient and scheduled. CT chest abdomen pelvis with contrast in 6 months, order in epic Anlia Simms MD Good morning, when I was scheduling this patient he mentioned dr simms wanted scans done in 6 months but there is nothing ordered. Thank you. I told the patient I would call him to schedule when he orders them. Thanks. documented in this encounter [facility] 11-06-2022 Instructions Anila Simms MD - 11/06/2022 10:08 AM EST -Discuss with PCP regarding fatty liver disease, hyperglycemia and possible treatment of cholesterol on his next office visit. documented in this encounter [facility] 11-06-2022 History of Present illness Narrative Diagnosis: 1) Stage IIB pancreas cancer. 2) Recurrent VTE. Per Dr. Kruse's last visit on 11/06/2021 HPI: The patient is a 72 year-old male who had a past medical history significant for DVT. He underwent evaluation for dyspepsia characterized by reflux and excessive belching along with cramping in the upper abdomen in the spring. He also developed dark urine and light-colored stools and was found to have elevated LFTs. Ultimately underwent a pylorus preserving pancreaticoduodenectomy on 06/03/2012. Previous therapy: 1) Gemcitabine x1 cycle followed by concurrent 5-FU/radiation (completed 09/23/12). Gemcitabine x1 cycle. He underwent a CT scan of the chest as well as a CT pancreas because of an increase in CA 19-9 earlier this year. The value was still within the normal range but the highest is been since his surgery and up to 10 units from the previous year. CT pancreas on 11/08/2020 revealed an atrophic pancreatic body and tail with few calcifications in the pancreatic tail. There was a small amount of air in the pancreatic duct which was mildly dilated. No other abnormality except for a few nonobstructing right renal calculi less than or equal to 3 mm in diameter. There was also a 1.5 cm right renal cortical cyst. CT of the chest on 11/08/2020 showed within the posterior right upper lobe there was a mildly lobulated slightly spiculated mass measuring 1.6 x 1.5 x 1.1 cm. There were superior mediastinal lymph nodes observed the largest of which was to the right of the origin of the brachiocephalic artery measuring about 1 cm in diameter. There were multiple nonenlarged middle mediastinal lymph nodes. Patient underwent CT-guided fine-needle aspiration of the lung nodule on 11/27/2020. Pathology: FINAL DIAGNOSIS A. RIGHT UPPER LOBE LUNG, FINE NEEDLE ASPIRATE (THINPREP,SMEARS AND CELL BLOCK) Positive for malignant cells. Adenocarcinoma with mucinous features. COMMENT Intracytoplasmic mucin in present in many of the malignant cells. The prior pancreatic adenocarcinoma ([id number]) was reviewed and focally shows morphologic similarity to the current lesion, but the morphology is not specific as to the sight of origin. Scant tumor is present in the cell block. TTF-1 immunohistochemistry will be attempted and reported in an addendum. Material will be also be submitted for molecular studies. Insufficient tissue for TTF-1 testing. PET 12/18/2020: NECK: Physiologic uptake seen in the visualized brain, parapharyngeal soft tissues, base of tongue, vocal cords, and salivary glands. No hypermetabolic cervical lymphadenopathy or hypermetabolic masses. No focal hypermetabolic thyroid lesion. CHEST: Physiologic uptake in the heart and mediastinal blood pool. Lungs, tracheobronchial tree and pleura: A hypermetabolic nodule, measuring 1.4 x 1.4 cm, having maximum SUV of is noted in the posterior aspect of the right upper lobe, having maximum SUV of 4.5. Small area of cavitation is noted within this nodule. Small amount of patchy opacification is noted in the posterior basilar portion of the right lower lobe with minimal FDG uptake with maximum SUV of 1.9, nonspecific, however likely of infectious/inflammatory etiology or sequela of previous infectious/inflammatory etiology. Please note that PET/CT is not sensitive for pulmonary nodules less than 8 mm. Mediastinum and Lymph nodes: Few small mildly hypermetabolic right paratracheal lymph notes with maximum SUV of 4.1; largest measuring approximately 14 x 10 mm. Small prevascular lymph nodes with maximum SUV of 4. Mild FDG uptake is identified in the right hilar region, with maximum SUV of 3.6. Chest wall and axilla: No hypermetabolic lesions. ABDOMEN AND PELVIS: Physiologic uptake seen in the and GI tracts. Liver: No hypermetabolic mass. Small amount of pneumobilia is noted. Biliary: Gallbladder is not identified. Intrahepatic biliary millimeter area, compatible with pneumobilia. Spleen: No hypermetabolic mass. No splenomegaly. Pancreas: Atrophic pancreatic body and tail with few calcifications in the region of the pancreatic tail. Patient is status post resection of the proximal pancreas/pancreatic head.. Adrenals: No hypermetabolic lesions. Kidneys: No right or left hydronephrosis. Tiny calcifications in the right kidney, likely a nonobstructing renal calculi.. GI tract: No dilation or wall thickening. The appendix is normal in size and caliber. Lymph nodes: No hypermetabolic abdominal or pelvic lymphadenopathy. Mesentery/Peritoneum: No ascites or hypermetabolic mass lesions. Vasculature: Vascular patency cannot be assessed due to lack of IV contrast. There are atherosclerotic calcifications without aneurysmal dilation. Pelvis: No hypermetabolic mass, ascites or fluid collection. BONES AND EXTREMITIES: Mild FDG uptake is identified in the medial aspect of the left clavicle, with maximum SUV of 3.8; ill-defined area of sclerosis is identified in the accompanying CT in this region (series 3, image [id number]). MRI Brain 12/14/2020: No evidence of intracranial metastatic disease. Underwent right upper lobectomy. Pathology based on same K-rachana mutation and his primary pancreatic tumor and be lung tumor highly suggestive of late metastatic recurrence of pancreas cancer. Presents for ongoing oncologic management. Interim history: He has no complaints today. He has no chest pain or shortness of breath. He has no cough or wheeze. Appetite has been normal. No abdominal pain, bloating or distention. No reflux. No nausea. Continues on apixaban for history of PE and malignancy. No unusual bleeding or unexplained bruising. Family history: significant for breast cancer in a sister at young age and prostate cancer in a brother PMH, medications and allergies as below personally reviewed by me today. Any changes documented in appropriate section. ROS: Constitutional: No acute illnesses since last seen. No episodes of recurring fever. No night sweats. Neuro: Denies REGALADO, vertigo. HEENT: No recent change in voice, vision or hearing. Resp: See above. CVS: Denies exertional chest pain and LE edema. GI: See above. : No dysuria or gross hematuria. Endo: No hot flashes. Musculoskeletal: Denies bone, back, joint and muscular pain. Heme: See above. Derm: No rash. Psych: Normal mood. PHYSICAL EXAM: Well-appearing and in no acute distress. Performance status 100% BP 135/84 Pulse 69 Temp 98.9 Ht 5' 11.26 (1.81m) Wt 221 lb (100.2kg) SpO2 95% BMI 30.60 kg/(m^2). EYES: Sclerae are anicteric bilaterally. ENT: Oral mucosa is unremarkable. NECK: Supple. LYMPHATIC: There is no palpable cervical or supraclavicular adenopathy. RESPIRATORY: Normal respiratory excursion. CARDIOVASCULAR: Rhythm is regular. ABDOMEN: The abdomen is nondistended. There is no organomegaly. No tenderness. Extremities: Free of edema. Left foot in the cast SKIN: No jaundice or rash. No petechiae. NEUROLOGIC: wares sorter II-XII are grossly intact. No focal motor weakness. LABS: Component Latest Ref Rng & Units 11/03/2022 WBC 3.70 - 11.00 k/uL 5.55 RBC 4.20 - 6.00 m/uL 4.91 Hemoglobin 13.0 - 17.0 g/dL 15.5 Hematocrit 39.0 - 51.0 % 44.2 MCV 80.0 - 100.0 fL 90.0 MCH 26.0 - 34.0 pg 31.6 MCHC 30.5 - 36.0 g/dL 35.1 RDW-CV 11.5 - 15.0 % 13.4 Platelet Count 150 - 400 k/uL 227 MPV 9.0 - 12.7 fL 8.9 (L) Neut% % 51.3 Abs Neut (ANC) 1.45 - 7.50 k/uL 2.85 Lymph% % 36.8 Abs Lymph 1.00 - 4.00 k/uL 2.04 Major% % 8.5 Abs Major <0.87 k/uL 0.47 Eosin% % 2.5 Abs Eosin <0.46 k/uL 0.14 Baso% % 0.5 Abs Baso <0.11 k/uL 0.03 Immature Gran % % 0.4 IMMATURE GRANS (ABS) <0.10 k/uL <0.03 NRBC /100 WBC 0.0 Absolute nRBC <0.01 k/uL <0.01 DTYPE Auto Component Latest Ref Rng & Units 11/03/2022 Protein, Total 6.3 - 8.0 g/dL 6.8 Albumin 3.9 - 4.9 g/dL 3.9 Calcium 8.5 - 10.2 mg/dL 8.7 Bilirubin, Total 0.2 - 1.3 mg/dL 0.4 Alkaline Phosphatase 38 - 113 U/L 92 AST 14 - 40 U/L 47 (H) ALT 10 - 54 U/L 56 (H) Glucose 74 - 99 mg/dL 120 (H) BUN 9 - 24 mg/dL 16 Creatinine 0.73 - 1.22 mg/dL 1.14 Sodium 136 - 144 mmol/L 138 Potassium 3.7 - 5.1 mmol/L 4.2 Chloride 97 - 105 mmol/L 105 CO2 22 - 30 mmol/L 22 Anion Gap 9 - 18 mmol/L 11 eGFR >=60 mL/min/1.73m 69 CA19-9 <36.0 U/mL 13.0 IMAGING: CT chest: Comparison: CT 05/06/2022 IMPRESSION: No significant change. No findings suggestive of metastatic disease. There is coronary artery calcification. CT abdomen and pelvis: COMPARISON: 05/06/2022 CT IMPRESSION: Decrease in size of RIGHT renal cyst. Otherwise stable findings including a mildly enlarged portacaval lymph node, hepatic steatosis, and nonobstructing nephrolithiasis. ASSESSMENT/PLAN: (C25.0) Malignant neoplasm of head of pancreas (HCC) (primary encounter diagnosis) (C78.01) 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) (R91.8) Lung nodules Assessment: -KPS is 100%. -In summary the patient is a 71-year-old male who received adjuvant gemcitabine and radiation for stage IIB resected pancreas cancer. 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 -Remains MERLE on imaging 1 year after his lung resection for an isolated metastasis. Plan: -Repeat CBC, CMP, CA19.9 & CT chest abdomen and pelvis w/ and office visit in about 6 months. -Discuss with PCP regarding fatty liver disease, hyperglycemia and possible treatment of cholesterol on his next office visit. 2) history of PE. Patient had a history of pulmonary embolism approximately year before diagnosis of pancreas cancer. Tolerating rivaroxaban and without side effect. Plan: -Continue Xarelto. Portions of this documentation were copied and pasted from previous office visit notes in order to provide a cohesive continuity of the history. The note has been reviewed and edited and updated as necessary. Anila Simms MD Cc: Antony Messer MD documented in this encounter [facility] 09-22-2022 Miscellaneous Notes Patient's request for medication is as follows Requested Prescriptions Signed Prescriptions Disp Refills rivaroxaban (XARELTO) 20 mg tablet 90 tablet 3 Sig: Take 1 tablet by mouth once daily. Authorizing Provider: ANILA SIMMS Order entered - please phone pharmacy and notify patient. Anila Simms MD Patient has been identified by name and date of : Yes Last office visit in this department: 07/20/2014 RX INSTRUCTIONS: Patient aware RX will be sent to pharmacy. No need to notify patient. Patient phones requesting refills as follows: Requested Prescriptions Pending Prescriptions Disp Refills rivaroxaban (XARELTO) 20 mg tablet 90 tablet 3 Sig: Take 1 tablet by mouth once daily. Please review and advise. Stephanie Kumar documented in this encounter [facility] 05-08-2022 History of Present illness Narrative Diagnosis: 1) Stage IIB pancreas cancer. 2) Recurrent VTE. HPI: The patient is a 71-year-old male who had a past medical history significant for DVT. Per Dr. Kruse last office visit on 11/06/2021 He underwent evaluation for dyspepsia characterized by reflux and excessive belching along with cramping in the upper abdomen in the spring. He also developed dark urine and light-colored stools and was found to have elevated LFTs. Ultimately underwent a pylorus preserving pancreaticoduodenectomy on 06/03/2012. Previous therapy: 1) Gemcitabine x1 cycle followed by concurrent 5-FU/radiation (completed 09/23/12). Gemcitabine x1 cycle. He underwent a CT scan of the chest as well as a CT pancreas because of an increase in CA 19-9 earlier this year. The value was still within the normal range but the highest is been since his surgery and up to 10 units from the previous year. CT pancreas on 11/08/2020 revealed an atrophic pancreatic body and tail with few calcifications in the pancreatic tail. There was a small amount of air in the pancreatic duct which was mildly dilated. No other abnormality except for a few nonobstructing right renal calculi less than or equal to 3 mm in diameter. There was also a 1.5 cm right renal cortical cyst. CT of the chest on 11/08/2020 showed within the posterior right upper lobe there was a mildly lobulated slightly spiculated mass measuring 1.6 x 1.5 x 1.1 cm. There were superior mediastinal lymph nodes observed the largest of which was to the right of the origin of the brachiocephalic artery measuring about 1 cm in diameter. There were multiple nonenlarged middle mediastinal lymph nodes. Patient underwent CT-guided fine-needle aspiration of the lung nodule on 11/27/2020. Pathology: FINAL DIAGNOSIS A. RIGHT UPPER LOBE LUNG, FINE NEEDLE ASPIRATE (THINPREP,SMEARS AND CELL BLOCK) Positive for malignant cells. Adenocarcinoma with mucinous features. COMMENT Intracytoplasmic mucin in present in many of the malignant cells. The prior pancreatic adenocarcinoma ([id number]) was reviewed and focally shows morphologic similarity to the current lesion, but the morphology is not specific as to the sight of origin. Scant tumor is present in the cell block. TTF-1 immunohistochemistry will be attempted and reported in an addendum. Material will be also be submitted for molecular studies. Insufficient tissue for TTF-1 testing. PET 12/18/2020: NECK: Physiologic uptake seen in the visualized brain, parapharyngeal soft tissues, base of tongue, vocal cords, and salivary glands. No hypermetabolic cervical lymphadenopathy or hypermetabolic masses. No focal hypermetabolic thyroid lesion. CHEST: Physiologic uptake in the heart and mediastinal blood pool. Lungs, tracheobronchial tree and pleura: A hypermetabolic nodule, measuring 1.4 x 1.4 cm, having maximum SUV of is noted in the posterior aspect of the right upper lobe, having maximum SUV of 4.5. Small area of cavitation is noted within this nodule. Small amount of patchy opacification is noted in the posterior basilar portion of the right lower lobe with minimal FDG uptake with maximum SUV of 1.9, nonspecific, however likely of infectious/inflammatory etiology or sequela of previous infectious/inflammatory etiology. Please note that PET/CT is not sensitive for pulmonary nodules less than 8 mm. Mediastinum and Lymph nodes: Few small mildly hypermetabolic right paratracheal lymph notes with maximum SUV of 4.1; largest measuring approximately 14 x 10 mm. Small prevascular lymph nodes with maximum SUV of 4. Mild FDG uptake is identified in the right hilar region, with maximum SUV of 3.6. Chest wall and axilla: No hypermetabolic lesions. ABDOMEN AND PELVIS: Physiologic uptake seen in the and GI tracts. Liver: No hypermetabolic mass. Small amount of pneumobilia is noted. Biliary: Gallbladder is not identified. Intrahepatic biliary millimeter area, compatible with pneumobilia. Spleen: No hypermetabolic mass. No splenomegaly. Pancreas: Atrophic pancreatic body and tail with few calcifications in the region of the pancreatic tail. Patient is status post resection of the proximal pancreas/pancreatic head.. Adrenals: No hypermetabolic lesions. Kidneys: No right or left hydronephrosis. Tiny calcifications in the right kidney, likely a nonobstructing renal calculi.. GI tract: No dilation or wall thickening. The appendix is normal in size and caliber. Lymph nodes: No hypermetabolic abdominal or pelvic lymphadenopathy. Mesentery/Peritoneum: No ascites or hypermetabolic mass lesions. Vasculature: Vascular patency cannot be assessed due to lack of IV contrast. There are atherosclerotic calcifications without aneurysmal dilation. Pelvis: No hypermetabolic mass, ascites or fluid collection. BONES AND EXTREMITIES: Mild FDG uptake is identified in the medial aspect of the left clavicle, with maximum SUV of 3.8; ill-defined area of sclerosis is identified in the accompanying CT in this region (series 3, image [id number]). MRI Brain 12/14/2020: No evidence of intracranial metastatic disease. Underwent right upper lobectomy. Pathology based on same K-rachana mutation and his primary pancreatic tumor and be lung tumor highly suggestive of late metastatic recurrence of pancreas cancer. Presents for ongoing oncologic management. Interim history: He has no complaints today. He has no shortness of breath at rest or with heavy exertion. He has no cough or wheeze. He broke his left foot in October after slipping on ice. Appetite has been normal. No abdominal pain, bloating or distention. No reflux. No nausea. Continues on apixaban for history of PE and malignancy. No unusual bleeding or unexplained bruising. Family history: significant for breast cancer in a sister at young age and prostate cancer in a brother PMH, medications and allergies as below personally reviewed by me today. Any changes documented in appropriate section. ROS: Constitutional: No acute illnesses since last seen. No episodes of recurring fever. No night sweats. Neuro: Denies REGALADO, vertigo. HEENT: No recent change in voice, vision or hearing. Resp: See above. CVS: Denies exertional chest pain and LE edema. GI: See above. : No dysuria or gross hematuria. Endo: No hot flashes. Musculoskeletal: Denies bone, back, joint and muscular pain. Heme: See above. Derm: No rash. Psych: Normal mood. PHYSICAL EXAM: Well-appearing and in no acute distress. Performance status 100% BP 140/79 Pulse 74 Temp (Src) 98.1 (Temporal) Wt 220 lb 8 oz (100.0kg) EYES: Sclerae are anicteric bilaterally. ENT: Oral mucosa is unremarkable. NECK: Supple. LYMPHATIC: There is no palpable cervical or supraclavicular adenopathy. RESPIRATORY: Normal respiratory excursion. CARDIOVASCULAR: Rhythm is regular. ABDOMEN: The abdomen is nondistended. There is no organomegaly. No tenderness. Extremities: Free of edema. Left foot in the cast SKIN: No jaundice or rash. No petechiae. NEUROLOGIC: wares sorter II-XII are grossly intact. No focal motor weakness. IMAGING: CT SCANS IMPRESSION: CT chest: Status post RIGHT upper lobectomy and unchanged pleural-parenchymal scarring in the RIGHT lung. No new or enlarging suspicious pulmonary nodule or intrathoracic lymphadenopathy. CT abdomen and pelvis: Stable exam with no metastatic disease in the abdomen or pelvis status post pancreaticoduodenectomy. ASSESSMENT/PLAN: (C25.0) Malignant neoplasm of head of pancreas (HCC) (primary encounter diagnosis) (C78.01) 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) (R91.8) Lung nodules Assessment: -KPS is 100%. -In summary the patient is a 71-year-old male who received adjuvant gemcitabine and radiation for stage IIB resected pancreas cancer. 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 -Remains MERLE on imaging 1 year after his lung resection for an isolated metastasis. Plan: -Lab work followed by CT scan and office visit in about 6 months. -Consider genetic testing for BRCA mutation because of family history of breast cancer, prostate cancer and pancreatic cancer. -Discuss with PCP regarding PSA and prostate cancer screening on his next office visit. 2) history of PE. Patient had a history of pulmonary embolism approximately year before diagnosis of pancreas cancer. Tolerating rivaroxaban and without side effect. Plan: -Continue Xarelto. Portions of this documentation were copied and pasted from previous office visit notes in order to provide a cohesive continuity of the history. The note has been reviewed and edited and updated as necessary. Anila Simms MD Cc: Antony Messer MD documented in this encounter [facility] 05-08-2022 Instructions Anila Simms MD - 05/08/2022 11:27 AM EDT Talk to Dr. Messer about PSA and prostate cancer screening documented in this encounter [facility] 03-18-2022 Miscellaneous Notes Pt. Notified rx sent to mail order pharmacy for xarelto, take once daily. Pt. Voiced understanding. Lillian Pitts LPN\ The following approved medication requests have been transmitted electronically. Signed Prescriptions Disp Refills rivaroxaban (XARELTO) 20 mg tablet 90 tablet 3 Sig: Take 1 tablet by mouth once daily. Authorizing Provider: PB KRUSE DO Patient called stating insurance will no longer cover Eliquis. He states Dr. Kruse informed that he would prescribe and alternative. Patient thinks it was Xarelto. Please send new prescription to [facility]. 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/28/2016 Rectal mass 04/11/2010 03/27/2014 Other and unspecified coagulation defects 200804/28/2017 Chronic pulmonary embolism 11/30/200810/29 documented as of this encounter (statuses as of 03/18/2022) [facility] History of Past illness Narrative* Problem Noted Date Resolved Date Pulmonary embolism without acute cor pulmonale 1 12/30/2014 10/28/2016 Pre-op evaluation 07/02/2012 12/13/2013 Personal history of pulmonary embolism 2 12/13/2013 Anticoagulation management encounter 07/02/2012 03/27/2014 Pancreatic cancer 06/22/2012 04/28/2016 Obstructive jaundice 04/07/2012 12/13/2013 Jaundice 04/03/2012 12/13/2013 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 10/28/2016 Rectal mass 04/11/2010 03/27/2014 Other and unspecified coagulation defects 200804/28/2017 Chronic pulmonary embolism 11/30/200810/29 documented as of this encounter (statuses as of 05/09/2022) [facility] of Past illness Narrative* Problem Noted Date Resolved Date Pulmonary embolism without acute cor pulmonale 1 12/30/2014 10/28/2016 Pre-op evaluation 07/02/2012 12/13/2013 Personal history of pulmonary embolism 2 12/13/2013 Anticoagulation management encounter 07/02/2012 03/27/2014 Pancreatic cancer 06/22/2012 04/28/2016 Obstructive jaundice 04/07/2012 12/13/2013 Jaundice 04/03/2012 12/13/2013 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 10/28/2016 Rectal mass 04/11/2010 03/27/2014 Other and unspecified coagulation defects 200804/28/2017 Chronic pulmonary embolism 11/30/200810/29 documented as of this encounter (statuses as of 09/22/2022) [facility] of Past illness Narrative* Problem Noted Date Resolved Date Pulmonary embolism without acute cor pulmonale 1 12/30/2014 10/28/2016 Pre-op evaluation 07/02/2012 12/13/2013 Personal history of pulmonary embolism 2 12/13/2013 Anticoagulation management encounter 07/02/2012 03/27/2014 Pancreatic cancer 06/22/2012 04/28/2016 Obstructive jaundice 04/07/2012 12/13/2013 Jaundice 04/03/2012 12/13/2013 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 10/28/2016 Rectal mass 04/11/2010 03/27/2014 Other and unspecified coagulation defects 200804/28/2017 Chronic pulmonary embolism 11/30/200810/29 documented as of this encounter (statuses as of 11/08/2022) [facility] of Past illness Narrative* Problem Noted Date Resolved Date Pulmonary embolism without acute cor pulmonale 1 12/30/2014 10/28/2016 Pre-op evaluation 07/02/2012 12/13/2013 Personal history of pulmonary embolism 2 12/13/2013 Anticoagulation management encounter 07/02/2012 03/27/2014 Pancreatic cancer 06/22/2012 04/28/2016 Obstructive jaundice 04/07/2012 12/13/2013 Jaundice 04/03/2012 12/13/2013 Extrahepatic obstructive biliary disease 2 012 10/28/2016 Rectal mass 04/11/2010 03/27/2014 Other and unspecified coagulation defects 200804/28/2017 Chronic pulmonary embolism 11/30/200810/29 documented as of this encounter (statuses as of 11/08/2022) [facility] of Past illness Narrative* Problem Noted Date Resolved Date Pulmonary embolism without acute cor pulmonale 1 12/30/2014 10/28/2016 Pre-op evaluation 07/02/2012 12/13/2013 Personal history of pulmonary embolism 2 12/13/2013 Anticoagulation management encounter 07/02/2012 03/27/2014 Pancreatic cancer 06/22/2012 04/28/2016 Obstructive jaundice 04/07/2012 12/13/2013 Jaundice 04/03/2012 12/13/2013 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 10/28/2016 Rectal mass 04/11/2010 03/27/2014 Other and unspecified coagulation defects 200804/28/2017 Chronic pulmonary embolism 11/30/200810/29 documented as of this encounter (statuses as of 05/15/2023) [facility] History of Past illness Narrative* Problem Noted Date Diagnosed Date Resolved Date Pulmonary embolism without a cute cor pulmonale 10/29/2015 10/28/2016 Pre-op evaluation 07/02/2012 12/13/2013 Personal history of pulmonary embolism 07/02/2012 12/13/2013 Anticoagulation management encounter 07/02/2012 03/27/2014 Pancreatic cancer 06/22/2012 04/28/2016 Obstructive jaundice 04/07/2012 014 Jaundice 04/03/2012 12/13/2013 Extrahepatic obstructive biliary disease 04/03/2012 10/28/2016 Rectal mass 04/11/2010 03/27/2014 Other and unspecified coagulation defects 11/30/2008 04/28/2017 Chronic pulmonary embolism 11/30/2008 1 12/30/2014 documented as of this encounter (statuses as of 10/23/2023) [facility] of Past illness Narrative* Problem Noted Date Diagnosed Date Resolved Date Pulmonary embolism without a cute cor pulmonale 10/29/2015 10/28/2016 Pre-op evaluation 07/02/2012 12/13/2013 Personal history of pulmonary embolism 07/02/2012 12/13/2013 Anticoagulation management encounter 07/02/2012 03/27/2014 Pancreatic cancer 06/22/2012 04/28/2016 Obstructive jaundice 04/07/2012 014 Jaundice 04/03/2012 12/13/2013 Extrahepatic obstructive biliary disease 04/03/2012 10/28/2016 Rectal mass 04/11/2010 03/27/2014 Other and unspecified coagulation defects 11/30/2008 04/28/2017 Chronic pulmonary embolism 11/30/2008 1 12/30/2014 documented as of this encounter (statuses as of 10/27/2023) [facility] History of Past illness Narrative* Problem Noted Date Diagnosed Date Resolved Date Pulmonary embolism without a cute cor pulmonale 10/29/2015 10/28/2016 Pre-op evaluation 07/02/2012 12/13/2013 Personal history of pulmonary embolism 07/02/2012 12/13/2013 Anticoagulation management encounter 07/02/2012 03/27/2014 Pancreatic cancer 06/22/2012 04/28/2016 Obstructive jaundice 04/07/2012 014 Jaundice 04/03/2012 12/13/2013 Extrahepatic obstructive biliary disease 04/03/2012 10/28/2016 Rectal mass 04/11/2010 03/27/2014 Other and unspecified coagulation defects 11/30/2008 04/28/2017 Chronic pulmonary embolism 11/30/2008 1 12/30/2014 documented as of this encounter (statuses as of 10/27/2023) [facility] Mal[facility] neoplasm of head of pancreas (HCC)- Primary Malignant neoplasm of head of pancreas 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) Chronic anticoagulation Long-term (current) use of anticoagulants [facility] Malignant neoplasm of head of pancreas (HCC)- Primary Malignant neoplasm of head of pancreas Malignant neoplasm of upper lobe of right lung (HCC) Malignant neoplasm of upper lobe, bronchus or lung H/O resection of pancreas Personal history of surgery to other organs [facility] Diagnosis Malignant neoplasm of head of pancreas (HCC)- Primary Malignant neoplasm of head of pancreas 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) [facility] Diagnosis Malignant neoplasm of head of pancreas (HCC)- Primary Malignant neoplasm of head of pancreas 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) Other chronic pulmonary embolism without acute cor pulmonale (HCC) Chemotherapy-induced neuropathy (HCC) Polyneuropathy due to drugs [facility] Malignant neoplasm of head of pancreas (HCC) Malignant neoplasm of head of pancreas 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) [facility] Diagnosis Malignant neoplasm of head of pancreas (HCC) Malignant neoplasm of head of pancreas 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) [facility] Diagnosis Malignant neoplasm of head of pancreas (HCC)- Primary Malignant neoplasm of head of pancreas 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) [facility] Diagnosis Malignant neoplasm of head of pancreas (HCC)- Primary Malignant neoplasm of head of pancreas 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) Other chronic pulmonary embolism without acute cor pulmonale (HCC) [facility] Diagnosis Malignant neoplasm of head of pancreas (HCC) Malignant neoplasm of head of pancreas 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) [facility] Diagnosis Encounter for follow-up surveillance of pancreatic cancer- Primary Malignant neoplasm of head of pancreas (HCC) Malignant neoplasm of head of pancreas 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) documented in this encounter [facility] for visit Narrative* MRI/CT (Routine) - Closed Specialty Diagnoses / Procedures Referred By Margy cid Referred To Contact CT IMAGING Diagnoses Malignant neoplasm of head of pancreas (HCC) 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) Procedures CT ABD/PEL W IVCON CT ABD & PELVIS W/CONTRAST Pb Kruse DO [address] [place] [address] Phone: tel: fax: [place] [id number] Referral ID Status Reason Start Date Expiration Date V isits Requested Visits Authorized [id number] Closed Auto-Generate d Referral 11/17/2024 12/17/2025 1 1 [facility] Summary Purpose Family History No Family History Records FoundNo Family History Records FoundNo Family History Records FoundNo Family History Records Found Advance Directives No Advanced Directives Records FoundDocuments on File Type Date Recorded Patient Helix Coil Winder Expl anation Advance Directive(s) Advance Directive(s) 01/25/2021 2:18 PM Advance Directive(s) 01/21/2021 10:45 AM Advance Directive(s) 01/01/2021 1:34 PM Advance Directive(s) 11/15/2020 10:27 AM Documents on File Type Date Recorded Patient Helix Coil Winder Expl anation Advance Directive(s) Advance Directive(s) 01/25/2021 2:18 PM Advance Directive(s) 01/21/2021 10:45 AM Advance Directive(s) 01/01/2021 1:34 PM Advance Directive(s) 11/15/2020 10:27 AM Documents on File Type Date Recorded Patient Helix Coil Winder Expl anation Advance Directive(s) 01/25/2021 2:18 PM Documents on File Type Date Recorded Patient Helix Coil Winder Expl anation Advance Directive(s) 01/25/2021 2:18 PM Reason for Referral Specialty Diagnoses / Procedures Referred By Margy cid Referred To Contact CT IMAGING Diagnoses Malignant neoplasm of head of pancreas (HCC) 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) Procedures CT CHEST W IVCON DIAGNOSTIC COMPUTED TOMOGRAPHY THORAX W/CONTRAST Anila Simms MD [address] [place] [address] Ct Imaging Referral ID Status Reason Start Date Expiration Date Visits Requested Visits Authorized [id number] Pending Review Auto-Generat ed Referral 2 06/07/2023 1 1 Specialty Diagnoses / Procedures Referred By Contac t Referred To Contact CT IMAGING Diagnoses Malignant neoplasm of head of pancreas (HCC) 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) Procedures CT ABD/PEL W IVCON CT ABD & PELVIS W/CONTRAST Anila Simms MD [address] [place] [address] Ct Imaging Referral ID Status Reason Start Date Expiration Date Visits Requested Visits Authorized [id number] Pending Review Auto-Generat ed Referral 2 06/07/2023 1 1 Specialty Diagnoses / Procedures Referred By Contac t Referred To Contact CT IMAGING Diagnoses Malignant neoplasm of head of pancreas (HCC) Malignant neoplasm of upper lobe of right lung (HCC) H/O resection of pancreas Procedures CT CHEST W IVCON DIAGNOSTIC COMPUTED TOMOGRAPHY THORAX W/CONTRAST Anila Simms MD [address] [place] [address] Ct Imaging Referral ID Status Reason Start Date Expiration Date Visits Requested Visits Authorized [id number] Pending Review Auto-Generat ed Referral 05/07/2023 12/06/2023 1 1 Specialty Diagnoses / Procedures Referred By Contac t Referred To Contact CT IMAGING Diagnoses Malignant neoplasm of head of pancreas (HCC) Malignant neoplasm of upper lobe of right lung (HCC) H/O resection of pancreas Procedures CT ABD/PEL W IVCON CT ABD & PELVIS W/CONTRAST Anila Simms MD [address] [place] [address] Ct Imaging Referral ID Status Reason Start Date Expiration Date Visits Requested Visits Authorized [id number] Pending Review Auto-Generat ed Referral 05/07/2023 12/06/2023 1 1 Specialty Diagnoses / Procedures Referred By Contac t Referred To Contact CT IMAGING Diagnoses Malignant neoplasm of head of pancreas (HCC) 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) Procedures CT CHEST W IVCON DIAGNOSTIC COMPUTED TOMOGRAPHY THORAX W/CONTRAST Nilam Harrington, [employer].TRANSIT CLERK [address] [place] [address] [place] [address] Referral ID Status Reason Start Date Expiration Date Visits Requested Visits Authorized [id number] Authorized Auto-Generat ed Referral 05/09/2024 06/08/2025 1 1 Specialty Diagnoses / Procedures Referred By Contac t Referred To Contact CT IMAGING Diagnoses Malignant neoplasm of head of pancreas (HCC) 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) Procedures CT ABD/PEL W IVCON CT ABD & PELVIS W/CONTRAST Nilam Harrington, CAR TESTER.TRANSIT CLERK [address] [place] [address] [place] [address] Referral ID Status Reason Start Date Expiration Date Visits Requested Visits Authorized [id number] Authorized Auto-Generat ed Referral 05/09/2024 06/08/2025 1 1 Specialty Diagnoses / Procedures Referred By Contac t Referred To Contact CT IMAGING Diagnoses Malignant neoplasm of head of pancreas (HCC) 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) Procedures CT ABD/PEL W IVCON CT ABD & PELVIS W/CONTRAST Pb Kruse, DO [address] [place] [address] [place] [address] Referral ID Status Reason Start Date Expiration Date Visits Requested Visits Authorized [id number] Authorized Auto-Generat ed Referral 11/17/2024 12/17/2025 1 1 Specialty Diagnoses / Procedures Referred By Contac t Referred To Contact CT IMAGING Diagnoses Malignant neoplasm of head of pancreas (HCC) 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) Procedures CT CHEST W IVCON DIAGNOSTIC COMPUTED TOMOGRAPHY THORAX W/CONTRAST Pb Kruse, DO [address] [place] [address] [place] [address] Referral ID Status Reason Start Date Expiration Date Visits Requested Visits Authorized [id number] Authorized Auto-Generat ed Referral 11/17/2024 12/17/2025 1 1 Additional Source Comments (unrecognized sect ion and content) No Status Records FoundNo Status Records FoundNo Status Records FoundNo Status Records Found INFORMATION SOURCE (unrecogn ized section and content) DATE CREATED AUTHOR 12/18/2020 [facility] DATE CREATED AUTHOR AUTHOR'S ORGANIZ ATION 01/21/2021 [facility] DATE CREATED AUTHOR AUTHOR'S ORGANIZ ATION 01/16/2025 [facility] DATE CREATED AUTHOR AUTHOR'S ORGANIZ ATION 06/03/2025 [facility] Source Comments (unrecognize d section and content) In the event this informatio n is protected by the Federal Confidentiality of Alcohol and Drug Abuse Patient Records regulations: The Federal rules restrict any use of the information to criminally investigate or prosecute any alcohol or drug abuse patient.[facility] the event this information is protected by the Federal Confidentiality of Alcohol and Drug Abuse Patient Records regulations: The Federal rules restrict any use of the information to criminally investigate or prosecute any alcohol or drug abuse patient.[facility] the event this information is protected by the Federal Confidentiality of Alcohol and Drug Abuse Patient Records regulations: The Federal rules restrict any use of the information to criminally investigate or prosecute any alcohol or drug abuse patient.[facility] the event this information is protected by the Federal Confidentiality of Alcohol and Drug Abuse Patient Records regulations: The Federal rules restrict any use of the information to criminally investigate or prosecute any alcohol or drug abuse patient.[facility] the event this information is protected by the Federal Confidentiality of Alcohol and Drug Abuse Patient Records regulations: The Federal rules restrict any use of the information to criminally investigate or prosecute any alcohol or drug abuse patient.[facility] the event this information is protected by the Federal Confidentiality of Alcohol and Drug Abuse Patient Records regulations: The Federal rules restrict any use of the information to criminally investigate or prosecute any alcohol or drug abuse patient.[facility] the event this information is protected by the Federal Confidentiality of Alcohol and Drug Abuse Patient Records regulations: The Federal rules restrict any use of the information to criminally investigate or prosecute any alcohol or drug abuse patient.[facility] the event this information is protected by the Federal Confidentiality of Alcohol and Drug Abuse Patient Records regulations: The Federal rules restrict any use of the information to criminally investigate or prosecute any alcohol or drug abuse patient.[facility] Center[facility] the event this information is protected by the Federal Confidentiality of Alcohol and Drug Abuse Patient Records regulations: The Federal rules restrict any use of the information to criminally investigate or prosecute any alcohol or drug abuse patient.[facility] Center[facility] the event this information is protected by the Federal Confidentiality of Alcohol and Drug Abuse Patient Records regulations: The Federal rules restrict any use of the information to criminally investigate or prosecute any alcohol or drug abuse patient.[facility] Center[facility] the event this information is protected by the Federal Confidentiality of Alcohol and Drug Abuse Patient Records regulations: The Federal rules restrict any use of the information to criminally investigate or prosecute any alcohol or drug abuse patient.[facility] Center[facility] the event this information is protected by the Federal Confidentiality of Alcohol and Drug Abuse Patient Records regulations: The Federal rules restrict any use of the information to criminally investigate or prosecute any alcohol or drug abuse patient.[facility] Center[facility] the event this information is protected by the Federal Confidentiality of Alcohol and Drug Abuse Patient Records regulations: The Federal rules restrict any use of the information to criminally investigate or prosecute any alcohol or drug abuse patient.[facility] Center[facility] the event this information is protected by the Federal Confidentiality of Alcohol and Drug Abuse Patient Records regulations: The Federal rules restrict any use of the information to criminally investigate or prosecute any alcohol or drug abuse patient.[facility] Center[facility] the event this information is protected by the Federal Confidentiality of Alcohol and Drug Abuse Patient Records regulations: The Federal rules restrict any use of the information to criminally investigate or prosecute any alcohol or drug abuse patient.[facility] Center[facility] the event this information is protected by the Federal Confidentiality of Alcohol and Drug Abuse Patient Records regulations: The Federal rules restrict any use of the information to criminally investigate or prosecute any alcohol or drug abuse patient.[facility] Center[facility] the event this information is protected by the Federal Confidentiality of Alcohol and Drug Abuse Patient Records regulations: The Federal rules restrict any use of the information to criminally investigate or prosecute any alcohol or drug abuse patient.[facility] CenterIn the event this information is protected by the Federal Confidentiality of Alcohol and Drug Abuse Patient Records regulations: The Federal rules restrict any use of the information to criminally investigate or prosecute any alcohol or drug abuse patient.[facility] CenterIn the event this information is protected by the Federal Confidentiality of Alcohol and Drug Abuse Patient Records regulations: The Federal rules restrict any use of the information to criminally investigate or prosecute any alcohol or drug abuse patient.[facility] Reason for Visit (unrecogniz ed section and content) Reason Comments Refill Request Reason Comments Established Patient Reason Comments Orders Reason Comments Established Patient Reason Comments AVS 05/[address] Specialty Diagnoses / Procedures Referred By Contac t Referred To Contact CT IMAGING Diagnoses Malignant neoplasm of head of pancreas (HCC) 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) Procedures CT CHEST W IVCON DIAGNOSTIC COMPUTED TOMOGRAPHY THORAX W/CONTRAST Pb Kruse, DO [email or web address] [address] [place] [facility] [place] [facility] Referral ID Status Reason Start Date Expiration Date V isits Requested Visits Authorized [id number] Closed Auto-Generate d Referral 10/06/2023 11/15/2023 1 1 Specialty Diagnoses / Procedures Referred By Contac t Referred To Contact CT IMAGING Diagnoses Malignant neoplasm of head of pancreas (HCC) 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) Procedures CT CHEST W IVCON DIAGNOSTIC COMPUTED TOMOGRAPHY THORAX W/CONTRAST Pb Kruse, DO [address] [place] [address] [address] Imaging [place] [address] Referral ID Status Reason Start Date Expiration Date V isits Requested Visits Authorized [id number] Closed Auto-Generate d Referral 11/02/2023 12/01/2024 1 1 Reason Onset Date Comments Refill Request 09/09/2024 Specialty Diagnoses / Procedures Referred By Contac t Referred To Contact CT IMAGING Diagnoses Malignant neoplasm of head of pancreas (HCC) 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) Procedures CT CHEST W IVCON DIAGNOSTIC COMPUTED TOMOGRAPHY THORAX W/CONTRAST Nilam Harrington APRN.TRANSIT CLERK [address] [place] [address] [place] [address] Referral ID Status Reason Start Date Expiration Date V isits Requested Visits Authorized [id number] Closed Auto-Generate d Referral 05/09/2024 06/08/2025 1 1 Specialty Diagnoses / Procedures Referred By Contnicho t Referred To Contact CT IMAGING Diagnoses Malignant neoplasm of head of pancreas (HCC) 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) Procedures CT CHEST W IVCON DIAGNOSTIC COMPUTED TOMOGRAPHY THORAX W/CONTRAST Nilam Harrington, CAR TESTER.TRANSIT CLERK [address] [place] [address] [place] [address] Care Teams (unrecognized sec tion and content) Shopping Investigator Relationship Specialty Start Date End Date Antony Messer MD PCP - General 11/29/08 Pb Kruse, DO [address] [facility] [place] [address] Referring Hematology/Oncology 01/03/21 Shopping Investigator Relationship Specialty Start Date End Date Antony Messer MD PCP - General 11/29/08 Pb Kruse, DO [address] [facility] [place] [address] Referring Hematology/Oncology 01/03/21 Shopping Investigator Relationship Specialty Start Date End Date Antony Messer MD PCP - General 11/29/08 Pb Kruse, DO [address] [facility] [place] [address] Referring Hematology/Oncology 01/03/21 Shopping Investigator Relationship Specialty Start Date End Date Antony Messer MD PCP - General 11/29/08 Pb Kruse, DO [address] [place] [address] Referring Hematology/Oncology 01/03/21 Shopping Investigator Relationship Specialty Start Date End Date Antony Messer MD PCP - General 11/29/08 Pb Kruse, DO [address] [place] [address] Referring Hematology/Oncology 01/03/21 Shopping Investigator Relationship Specialty Start Date End Date Antony Messer MD PCP - General 11/29/08 Pb Kruse DO [address] [place] [address] Referring Hematology/Oncology 01/03/21 Shopping Investigator Relationship Specialty Start Date End Date Antony Messer MD PCP - General 11/29/08 Pb Kruse DO [address] [place] [address] Referring Hematology/Oncology 01/03/21 Shopping Investigator Relationship Specialty Start Date End Date Antony Messer MD PCP - General 11/29/08 Pb Kruse DO [address] [place] [address] Referring Hematology/Oncology 01/03/21 Shopping Investigator Relationship Specialty Start Date End Date Antony Messer MD PCP - General 11/29/08 Pb Kruse DO [address] [place] [address] Referring Hematology/Oncology 01/03/21 Shopping Investigator Relationship Specialty Start Date End Date Antony Messer MD PCP - General 11/29/08 Pb Kruse DO [address] [place] [address] Referring Hematology/Oncology 01/03/21 Shopping Investigator Relationship Specialty Start Date End Date Antony Messer MD PCP - General 11/29/08 Pb Kruse DO [address] [place] [address] Referring Hematology/Oncology 01/03/21 Shopping Investigator Relationship Specialty Start Date End Date Antony Messer MD PCP - General 11/29/08 Pb Kruse DO [address] [place] [address] Referring Hematology/Oncology 01/03/21 Shopping Investigator Relationship Specialty Start Date End Date Antony Messer MD PCP - General 11/29/08 Pb Kruse DO [address] [place] [address] Referring Hematology/Oncology 01/03/21 Shopping Investigator Relationship Specialty Start Date End Date Antony Messer MD PCP - General 11/29/08 Pb Kruse DO [address] [place] [address] Referring Hematology/Oncology 01/03/21 Shopping Investigator Relationship Specialty Start Date End Date Antony Messer MD PCP - General 11/29/08 Pb Kruse DO [address] [place] [address] Referring Hematology/Oncology 01/03/21 Shopping Investigator Relationship Specialty Start Date End Date Antony Messer MD PCP - General 11/29/08 Pb Kruse DO [address] [place] [address] Referring Hematology/Oncology 01/03/21 Shopping Investigator Relationship Specialty Start Date End Date Antony Messer MD PCP - General 11/29/08 Pb Kruse DO [address] [place] [address] Referring Hematology/Oncology 01/03/21 FOR RECORDS PERTAINING TO PATIENTS WHO ARE OR HAVE BEEN ENROLLED IN A CHEMICAL DEPENDENCY/SUBSTANCEABUSE PROGRAM, SOME INFORMATION MAY BE OMITTED. This clinical summary was aggregated from multiple sources. Caution should be exercised in using it in the provision of clinical care. This summary normalizes information from multiple sources, and as a consequence, information in this document may materially change the coding, format and clinical context of patient data. In addition, data may be omitted in some cases. CLINICAL DECISIONS SHOULD BE BASED ON THE PRIMARY CLINICAL RECORDS. [employer] [facility]. provides no warranty or guarantee of the accuracy or completeness of information in this document.
--- NOTE | 2025-10-27 12:11 | CASEMGMT ---
Care Management Face to Face with patient for initial transition planning/care coordination assessment in the ED.? This investigative writer introduced self and role at [facility]. Patient alert and oriented. Patient willing to participate in assessment and is able to answer all questions appropriately.? Care providers, pharmacy, and demographics verified. Admitting Diagnosis: Calculus of kidney Other diagnosis history: PE, Factor VII deficiency, history of pancreatic cancer, history of lung cancer PCP: ?Gui Specialists: ?[facility] Preferred Pharmacy: [facility] Insurance: [facility] Medicare Prescription Benefit: Yes Living Will/HPOA: ?none, do not want to complete at this time LNOK: ? Living Arrangements: ?patient lives with in 2 story home, independent with ADLs and IADLs Transportation: patient drives DME: ?blood pressure cuff and pulse ox HHC: used in the past SNF/Rehab: none Community Resources: ?none Behavioral Health History: ?none Patient goals: Patient wishes to discharge home, denies need for home health care at this time. Patient denies any further needs or concerns at this time. Disposition Plan: admission to acute; RN CM/SW to follow for discharge planning needs that may arise. Carey Arias, ENGINEERING TECH, SENIOR PORTFOLIO MANAGER
--- NOTE | 2025-10-27 13:51 | NURSING ---
Pt feeling nauseated. No admit orders. Dr. Fleming was up here to see his patients, thought he would see the pt but then disappeared to go down to Surgery. This Rn called surgery and he is in the middle of surgery but the nurse was able to take the message.
[2025-10-27] MEDS: 0.9% Normal Saline (1000mL) 1,000 ML 50 ML IV (14:38)
--- NOTE | 2025-10-27 15:39 | NURSING ---
off unit via bed for surgery
--- NOTE | 2025-10-27 15:40 | DCINST_ITS ---
Discharge Instructions DC O2, CPAP, BIPAP needs Home O2 Discharge instructions: No Dressing / Incision Discharge Activity: Return to Normal Activity and May Not Drive (while taking narcotic pain medications.) Dressing / Incision Call your doctor if you observe: Fever of 101 or Higher Follow Up Care Please Follow Up With: Tung Fleming MD When: Call [phone] for an appointment Test Results: Test results from this visit will be discussed in further detail at your follow- up appointment, if applicable. Discharge Plan Admission Admit Date/Time: 10/27/25 11:25 Primary Reason for Your Visit: stent placement for stone Attending Provider: Tung Fleming Primary Care Provider: Patel Messer Discharge Orders/Prescriptions Prescriptions: Continued ascorbic acid (vitamin C) 500 mg Tablet 500 mg PO DAILY zinc 25 mg Tablet 25 mg PO DAILY cholecalciferol (vitamin D3) 125 mcg (5,000 unit) Capsule 125 mcg PO DAILY rye grass extract-quercetin 500-250 mg Tablet 1 tab PO DAILY Creon 12,000-38,000 -60,000 unit Capsule,Delayed Release(Dr/Ec) 1 cap PO BID Rx Instructions: one with breakfast, two with dinner. acetaminophen [Tylenol] 325 mg Tablet 650 mg PO Q4H PRN PRN (Reason: Fever, pain 1-10) Qty: 0 0RF oxycodone 5 mg Tablet 5 mg PO Q4H PRN PRN (Reason: Pain Score 6-10) 7 Days Qty: 15 0RF Held Eliquis 5 mg tablet 5 mg PO BID Hold Instructions: Resume on 11/06/25. Xarelto 20 mg tablet 20 mg PO DAILY Hold Instructions: Resume on 11/06/25. Referrals / Follow Up: Patel Messer MD [Primary Care Provider, Family Practice] Tung Fleming MD [Med Staff - Active Staff, Urology] Disposition Disposition (needs filled in before D/C Order can be placed): Home, Self Care
[2025-10-27] MEDS: Lactated Ringers 1,000 ML 15 ML IV (15:59)
--- NOTE | 2025-10-27 16:01 | PRE.ANES_ITS ---
ASA Classification* ASA Classification ASA Classification: 2 Assessment & Plan Anesthesia* Anesthesia Assessment Anesthesia Assessment: Discussed sedation and/or anesthesia options, risks, benefits, and alternatives with patient/parents/legal guardian/POA. Questions invited. The patient/parents/legal guardian/POA seems to understand and agrees to proceed with anesthesia plan. Reviewed the physical assessment, medical history, allergy history and patient home medications list prior to surgery/procedure/anesthetic and documented any changes. Performed airway and anesthesia risk assessments. Anesthesia Type Anesthesia Type: MAC (GA bkup) Anesthesia Focused Assessment* Temperature: 99.5 F Pulse Rate: 71 Blood Pressure: 152/74 Respiratory Rate: 16 Pulse Ox: 96 Airway Assessment Mouth opens: >3 cm Mallampati Score: II Labs Anesthesia Preop lab: CBC WBC, (4.4-11.0) 15.8 K/mm3 H Today, 10:30 RBC, (4.6-6.2) 4.84 M/mm3 Today, 10:30 Hgb, (13.0-16.5) 14.9 g/dL Today, 10:30 Hct, (40-54) 43.7 % Today, 10:30 Plt Count, (150-450) 224 K/mm3 Today, 10:30 CHEMISTRY Potassium, (3.3-5.1) 4.3 mmol/L Today, 10:30 Sodium, (133-145) 130 mmol/L L Today, 10:30 BUN, (4-19) 20 mg/dL H Today, 10:30 Creatinine, (0.70-1.20) 1.68 mg/dL H Today, 10:30 Glucose, (70-99) 190 mg/dL H Today, 10:30 TSH, (0.358-3.74) 2.23 uIU/mL 12/12/21, 17:12 COAG PT, (11.7-14.9) 14.3 SECONDS 01/08/22, 13:35 Pre-Assessment Diagnosis/Proposed Procedure Planned Operative Procedure(s): Cystoscopy retrograde stent. 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 When Was Last Pacemaker Check QUESTION #4 FULL TEXT: You/Your Family Experience fever (hyperthermia) with Anesthesia Last Oral Intake Last Oral intake: Last Oral Intake NPO since 06:00 10/27/25 15:17 Meds taken in AM with sips of Yes 10/27/25 15:17 water? Meds patient instructed to xarelto 10/27/25 15:17 take am of surgery PONV PONV - motorized squad commanding officer: PONV - motorized squad commanding officer Female HX of Motion Sickness HX of N/V After Surgery Non-Smoker Duration of Surgery greater than 60 minutes Number of Risk Factors PONV Score Height & Weight Height & Weight: Anesthesia: Height & Weight Height 6 ft 10/27/25 15:17 Weight: 90.718 kg 10/27/25 15:17 Body Mass Index (BMI) 27.1 10/27/25 15:17 Respiratory Assessment Respiratory Assessment - motorized squad commanding officer: Respiratory Tract Infection Hx - motorized squad commanding officer Hx Respiratory Tract Infection No 10/27/25 15:17 STOP Sleep Apnea STOP Sleep Apnea - motorized squad commanding officer: STOP Sleep Apnea - motorized squad commanding officer Hx Hypertension No 10/27/25 12:20 Hx Sleep Apnea No 10/27/25 12:20 CPAP BIPAP Do you snore loudly (louder No 10/27/25 12:20 than talking or can be heard Do you often feel tired/ No 10/27/25 12:20 fatigued/ sleepy during daytime? Has anyone observed you stop No 10/27/25 12:20 breathing during sleep? STOP Results Negative 10/27/25 12:20 QUESTION #5 FULL TEXT : Do you snore loudly (louder than talking or can be heard through closed doors)? Tobacco Use History Tobacco Use History - motorized squad commanding officer: Tobacco Use History - motorized squad commanding officer Tobacco Use Smoking Status Former smoker 10/27/25 12:20 Hx Tobacco Use No 10/27/25 12:20 Years Smoking Packs Smoked per Day Smoking Cessation Date was No - quit smoking greater 10/27/25 12:20 within the last 15 years than 15 years ago Hx Smoking Cessation Date 01/08/70 10/27/25 12:20 Hx Smoking Cessation Counseling Hematologic Medial History Hematologic Hx - motorized squad commanding officer: Hematologic Medical Hx - senior engineering specialist Hx of Blood Transfusion No 10/27/25 12:20 Hx of Transfusion in last 3 No 10/27/25 12:20 Months Date of Last Transfusion (if within last 3 months) Ever experience any problems No 10/27/25 12:20 with transfusion(s)? Specify any problems Hx of Preganancy in last 3 N/A 10/27/25 12:20 Months Nurse Filling Out Transfusion NSMITH 10/27/25 12:20 & Questions: Date: 10/27/25 10/27/25 12:20 Time: 12:34 10/27/25 12:20 Patient unable to answer at this time (ie. confused, unrespo /Reproduction History /Reproductive History - motorized squad commanding officer: /Reproductive Hx- motorized squad commanding officer Hx Now No 10/27/25 15:17 Gestational Age (in weeks): EDC: Hx Hx Para Hx Section SAB Does the father of the baby or his family experience fever w Father of the baby Malignant Hypertension history comment Active Medications Active Medications: Current Medications Generic Name Dose Route Start Last Admin Trade Name Freq PRN Reason Stop Dose Admin Acetaminophen 650 mg 10/27/25 15:37 Acetaminophen 325 Mg Tablet PO Q6H PRN PRN Pain Score 1-10 Ciprofloxacin HCl 500 mg 10/27/25 22:00 Ciprofloxacin 500 Mg Tablet PO BID AZUCENA Enoxaparin Sodium 40 mg 10/28/25 10:00 Enoxaparin 40 Mg/0.4 Ml Syringe SC DAILY@1000 AZUCENA Sodium Chloride 1,000 mls @ 50 mls/hr 10/27/25 14:30 10/27/25 15:26 IV 0 mls/hr .Q20H AZUCENA Infusion Lactated Ringer's 1,000 mls @ 15 mls/hr 10/27/25 15:45 10/27/25 15:59 IV 15 mls/hr .Q48H AZUCENA Administration Cefazolin Sodium 2 gm/ Sodium 110 mls @ 200 mls/hr 10/27/25 15:50 Chloride IV 10/27/25 16:22 INTRAOP ONE Ketorolac Tromethamine 15 mg 10/27/25 15:37 Ketorolac 15 Mg/Ml Vial IV 10/29/25 15:38 Q6H PRN PRN Pain Score 1-10 Ondansetron HCl 4 mg 10/27/25 14:28 10/27/25 14:39 Ondansetron 4 Mg/2 Ml Vial IV 4 mg Q6H PRN PRN Administration NAUSEA Oxycodone HCl 5 - 10 mg 10/27/25 15:37 Oxycodone 5 Mg Tablet PO Q6H PRN PRN Pain Score 4-10 PFSH Medical History DVT (deep venous thrombosis) Back pain due to injury Wears glasses Alcohol use Pulmonary embolism Factor VIII deficiency History of pancreatic cancer Spiral fracture of shaft of tibia Spiral fracture of shaft of fibula Hx of cancer of lung Hx of pulmonary embolus Home Medications ?Medication ?Instructions ?Recorded ?Last Taken ?Type apixaban 5 mg tablet (Eliquis) 5 mg PO BID BLOOD THINN ER 01/08/22 01/20/22 History Held on 10/27/25. Instructions: Resume on 11/06/25. ascorbic acid (vitamin C) 500 mg 500 mg PO DAILY SUPPL EMENT 01/08/22 01/08/22 History tablet cholecalciferol (vitamin D3) 125 125 mcg PO DAILY SUPP LEMENT 01/08/22 01/08/22 History mcg (5,000 unit) capsule bmaikr-crmvruhs-fnemshx(pork)12,000-38,000-60,000 1 ca p PO BID pancreas 01/08/22 Unknown History unit capsule,del rel (Creon) rye grass extract 500 mg-quercetin 1 tab PO DAILY SUPP LEMENT 01/08/22 01/08/22 History 250 mg tablet zinc 25 mg tablet 25 mg PO DAILY SUPPLEMENT 01/08/22 History acetaminophen 325 mg tablet 650 mg (2 x 325 mg) PO Q4H PRN PRN 01/09/22 Unknown Rx (Tylenol) Fever, pain 1-10 #0 tabs oxycodone 5 mg tablet 5 mg PO Q4H PRN PRN Pain Sco re 01/09/22 01/24/22 05:30 Rx 6-10 7 days #15 tabs rivaroxaban 20 mg tablet (Xarelto) 20 mg PO DAILY 10/1610/27/25 History Held on 10/27/25. Instructions: Resume on 11/06/25. Allergy/AdvReac Type Severity Reaction Status Date / Time No Known Allergies Allergy Verified 10/27/25 10:22 Family History Father Myocardial infarction age 54 from sudden SC. Heart disease Hypertension Sister Cancer Sister with breast CA. Brother Cancer Brother with prostate CA and another Brother x 1 with Skin CA. Family History no significant family his Surgical History History of lobectomy of lung History of Whipple procedure Surgical History unable to obtain Social History household members: spouse Smoking Status: Former smoker how long ago did patient quit smoking: Smoked 2-3 years late teens to early 20s, 1/2 ppd until quit. alcohol intake: current alcohol intake frequency: a few times a week substance use type: does not use Review of Systems (Anesthesia) ROS Narrative System reviewed and no additional complaints, except as documented.
[2025-10-27] MEDS: Cefazolin 1 GM/5 ML Vial 2 GM IV (16:27)
[2025-10-27] MEDS: fentaNYL 100 MCG/2 ML Ampul IV (16:37)
--- NOTE | 2025-10-27 16:44 | PCM.OPRPT ---
Operative Report (Standard) Operative Information Date of Procedure: 10/27/25 Pre-Operative Diagnosis: Obstructing right ureteral calculus Post-Operative Diagnosis: The same Surgery/Procedure Performed: Cystoscopy right retrograde pyelogram, and stent placement right side retail loss prevention officer: No Type of Anesthesia: General RN Documented Start/Stop Times: Operation Date: 10/27/25 17:15 Case Time Into Pre-Op 10/27/25 15:41 Anesthesia Start 10/27/25 16:27 Into Room 10/27/25 16:27 Procedure Start 10/27/25 16:35 Procedure End 10/27/25 16:41 Procedure Start Time: 16:35 Procedure Stop Time: 16:45 Select all DRAINS/GRAFTS/IMPLANTS that apply: Drains Drain details: Right stent placed Estimated Blood Loss: None Specimen collected: No Description of surgery: Patient was taken back to the operating room after induction of general anesthesia, the patient was placed in dorsolithotomy position. The urethra and genitals were prepped and draped in usual sterile fashion. Using a 21 [place] rigid cystourethroscope the entire length of the urethra was normal then went into the bladder. Identified the trigone the left and right ureteral orifice. I then cannulated the right ureteral orifice and advanced a wire up into the kidney. I then backloaded a 5 [place] open ended catheter over the wire and injected contrast to delineate the anatomy. After the retrograde was performed I then used fluoroscopic images and guidance to advanced a wire up into the kidney and over the 0.038 glidewire I advanced a 6 [place] by 26 cm double pigtail stent. I then pulled the 0.038 Glidewire off and the stent coiled in the kidney bladder good position. The bladder was then drained. We confirmed the position of the stent by fluoroscopy. Patient anesthetic was reversed and was taken back to the PACU in good condition. Surgical Findings: Stent placed right side Complications Complications: No Admit VTE Documentation VTE Present on Admission: No VTE Mechan Device Prophylaxis: SCD's VTE Pharm Prophylaxis ordered?: No
--- NOTE | 2025-10-27 16:49 | PCM.POST.ANE ---
Anesthesia: Postop Eval I Current Vital Signs Temperature: 97.6 F Pulse Rate: 78 Blood Pressure: 158/77 Respiratory Rate: 16 Pulse Ox: 96 Oxygen Delivery Method: Room Air Assessment Airway patent: Yes Spontaneous unlabored respirations: Yes Mental status: Awake and Calm nausea: No Vomiting: No Anesthesia Complication: No Fluid Hydration Crystalloid volume administer (ml): 400 Total IV fluid infused: 400 Progress Note Anesthesia document: Postop Eval 1 completed: Yes
--- NOTE | 2025-10-27 17:02 | POSTOPAN2_ITS ---
Anesthesia Postop Eval I Sum Postop Eval Completion status Anesthesia document: Postop Eval 1 completed: Yes Anesthesia Postop Eval I Summary Anesthesia Postop Eval I Summary: Anesthesia Postop Eval I: Assessment Summary Airway patent Yes 10/27/25 16:50 PERSONNEL OFFICER.SKOBY Spontaneous unlabored Yes 10/27/25 16:50 PERSONNEL OFFICER.SKOBY respirations Mental status Awake,Calm 10/27/25 16:50 PERSONNEL OFFICER.SKOBY nausea No 10/27/25 16:50 PERSONNEL OFFICER.SKOBY Vomiting No 10/27/25 16:50 PERSONNEL OFFICER.SKOBY Anesthesia Postop Eval I: Fluid Summary Crystalloid volume administer 400 10/27/25 16:50 PERSONNEL OFFICER.SKOBY (ml) Colloids volume administered ( ml) Blood Product volume administered (ml) Total IV fluid infused 400 10/27/25 16:50 PERSONNEL OFFICER.SKOBY Anesthesia Postop Eval I: Summary Notes Anesthesia Complication No 10/27/25 16:50 PERSONNEL OFFICER.SKOBRoseanna Anesthesia Complication Comment: Post-operative progress note Anesthesia: Postop Eval II Evaluation Mental status: Awake and Calm Pain Level: 0 nausea: No Vomiting: No Complications Anesthesia Complication: No
--- NOTE | 2025-10-27 17:02 | PCM.POSTANE2 ---
Anesthesia Postop Eval I Sum Postop Eval Completion status Anesthesia document: Postop Eval 1 completed: Yes Anesthesia Postop Eval I Summary Anesthesia Postop Eval I Summary: Anesthesia Postop Eval I: Assessment Summary Airway patent Yes 10/27/25 16:50 RETURNS CLERK.SKOBY Spontaneous unlabored Yes 10/27/25 16:50 RETURNS CLERK.SKOBY respirations Mental status Awake,Calm 10/27/25 16:50 RETURNS CLERK.SKOBY nausea No 10/27/25 16:50 RETURNS CLERK.SKOBY Vomiting No 10/27/25 16:50 RETURNS CLERK.SKOBY Anesthesia Postop Eval I: Fluid Summary Crystalloid volume administer 400 10/27/25 16:50 RETURNS CLERK.SKOBY (ml) Colloids volume administered ( ml) Blood Product volume administered (ml) Total IV fluid infused 400 10/27/25 16:50 RETURNS CLERK.SKOBY Anesthesia Postop Eval I: Summary Notes Anesthesia Complication No 10/27/25 16:50 RETURNS CLERK.SKOBRoseanna Anesthesia Complication Comment: Post-operative progress note Anesthesia: Postop Eval II Evaluation Mental status: Awake and Calm Pain Level: 0 nausea: No Vomiting: No Complications Anesthesia Complication: No
[2025-10-28 04:06] VITALS: BP 104/64; PULSE 68; RESP 18; TEMP 37.1; O2SAT 95
[2025-10-28 06:36] LABS: Hematocrit 35.9 % (40-54); Hemoglobin 12.6 g/dL (13.0-16.5); Immature Granulocytes Count 0.050 X10^3/uL (0.0-0.0); Mean Corp Hgb Conc 35.1 g/dL (32-36); Mean Corpuscular Volume 90.0 fL (80-94); Mean Platelet Vol. 9.3 fl (6.2-12.0); NRBC Flagged by Analyzer 0 % (0-5); Platelet Count 195 K/mm3 (150-450); RBC Distribution Width CV 13.2 % (11.6-14.6); RBC Distribution Width SD 44.0 fl (35.1-43.9); Red Blood Count 3.99 M/mm3 (4.6-6.2); White Blood Count 9.7 K/mm3 (4.4-11.0)
[2025-10-28 07:02] LABS: Anion Gap 12 (5-15); BUN 22 mg/dL (4-19); BUN/Creat Ratio 15.0 RATIO (10-20); Calcium,Total 8.1 mg/dL (7.6-11.0); Carbon Dioxide 21.7 mmol/L (21.0-32.0); Chloride 100 mmol/L (98-108); Estimated Creatinine Clearance 48.79 ml/min (50-250); Glucose 126 mg/dL (70-99); Potassium 4.0 mmol/L (3.3-5.1)
--- NOTE | 2025-10-28 09:11 | DS.PCM_ITS ---
Providers Date of Admission: 10/27/25 Date of Discharge: 10/28/25 Primary Care Physician: Dr. Patel Messer MD Reason For Visit: KIDNEY STONE Diagnosis Discharge Diagnosis (1) Calculus of kidney: Status: Acute Code(s): N20.0 - Calculus of kidney Plan: Plan for cystoscopy and right stent placement today in the OR admit for pain control Medications at Discharge Home Medications apixaban 5 mg tablet (Eliquis) 5 mg PO BID BLOOD THINNER 01/08/22 Held on 10/27/25. Instructions: Resume on 11/06/25. ascorbic acid (vitamin C) 500 mg tablet 500 mg PO DAILY SUPPLEMENT 01/08/22 cholecalciferol (vitamin D3) 125 mcg (5,000 unit) capsule 125 mcg PO DAILY SUPPLEMENT 01/08/22 sjqepg-lmmmtuta-udntphg(pork)12,000-38,000-60,000 unit capsule,del rel (Creon) 1 cap PO BID pancreas 01/08/22 rye grass extract 500 mg-quercetin 250 mg tablet 1 tab PO DAILY SUPPLEMENT 01/08/22 zinc 25 mg tablet 25 mg PO DAILY SUPPLEMENT 01/08/22 acetaminophen 325 mg tablet (Tylenol) 650 mg (2 x 325 mg) PO Q4H PRN PRN Fever, pain 1-10 #0 tabs 01/09/22 oxycodone 5 mg tablet 5 mg PO Q4H PRN PRN Pain Score 6-10 7 days #15 tabs 01/09/22 rivaroxaban 20 mg tablet (Xarelto) 20 mg PO DAILY 10/27/25 Held on 10/27/25. Instructions: Resume on 11/06/25. ciprofloxacin HCl 500 mg tablet (Cipro) 500 mg PO BID #6 tabs 10/28/25 oxycodone 5 mg tablet 5 mg PO Q6H PRN pain 7 days #14 tabs 10/28/25 Hospital Course Operations - (Admitted for pain control for obstructing kidney stone and stent placed discharged in good condition) Summary of Care Provided Minutes Spent on Discharge: 30 Physical Exam Const alert and oriented x3 General Appearance: cooperative HEENT normocephalic and head/scalp atraumatic Eyes PERRL and EOMs intact bilaterally Neck supple, no JVD and no carotid bruits Resp normal respiratory effort, normal air movement and clear to auscultation bilaterally Cardio regular rate and no murmurs GI normal to inspection, nondistended, normoactive bowel sounds and soft to palpation Extremity normal capillary refill General Extremity: no tenderness to palpation of joints or extremities; Negative for edema Skin no rashes or lesions noted and no wounds General Skin Exam: no breakdown Neuro CN's II-XII intact bilaterally Psych affect normal Appearance: appropriate Weight / BMI Weight Weight: 90.718 kg Body Mass Index (BMI) 27.1 ABG / Lab / Microbiology Data 10/28/25 05:58 10/28/25 05:58 Laboratory: Laboratory Results - last 24 hr 10/27/25 10:30: WBC 15.8 H, RBC 4.84, Hgb 14.9, Hct 43.7, MCV 90.3, MCH 30.8, MCHC 34.1, RDW Std Deviation 43.8, RDW Coeff of Tess 13.2, Plt Count 224, MPV 9.1, Immature Gran % (Auto) 0.400, Neut % (Auto) 76.3 H, Lymph % (Auto) 13.5 L, [place] % (Auto) 9.7, Eos % (Auto) 0.0, Baso % (Auto) 0.1, Absolute Neuts (auto) 12.0 H, Absolute Lymphs (auto) 2.13, Nucleated RBC % 0, Differential Comment COMMENT, Sodium 130 L, Potassium 4.3, Chloride 94 L, Carbon Dioxide 21.7, Anion Gap 15, BUN 20 H, Creatinine 1.68 H, Estim Creat Clear Calc 42.98 L, Est GFR (MDRD) Non-Af 43 L, BUN/Creatinine Ratio 11.8, Glucose 190 H, Calcium 8.9 10/27/25 11:38: Urine Color Yellow, Urine Clarity Clear, Urine pH 5.0, Ur Specific [place] 1.025, Urine Protein 30 H, Urine Glucose (UA) Normal, Urine Ketones 5 H, Urine Occult Blood 250 H, Urine Nitrite Negative, Urine Bilirubin Negative, Urine Urobilinogen Normal, Ur Leukocyte Esterase Negative, Urine RBC 10-25 SEEN, Urine WBC 0 SEEN, Ur Squamous Epith Cells 0-5 SEEN, Urine Bacteria 1+, Urine Mucus 1+ 10/28/25 05:58: WBC 9.7, RBC 3.99 L, Hgb 12.6 L, Hct 35.9 L, MCV 90.0, MCH 31.6, MCHC 35.1, RDW Std Deviation 44.0 H, RDW Coeff of Tess 13.2, Plt Count 195, MPV 9.3, Immature Gran % (Auto) 0.500, Neut % (Auto) 64.4, Lymph % (Auto) 21.9, [place] % (Auto) 12.5 H, Eos % (Auto) 0.4, Baso % (Auto) 0.3, Absolute Neuts (auto) 6.2, Absolute Lymphs (auto) 2.12, Nucleated RBC % 0, Sodium 134, Potassium 4.0, Chloride 100, Carbon Dioxide 21.7, Anion Gap 12, BUN 22 H, Creatinine 1.48 H, E stim Creat Clear Calc 48.79 L, Est GFR (MDRD) Non-Af 50 L, BUN/Creatinine Ratio 15.0, Glucose 126 H, Calcium 8.1 Radiography Diagnostic Testing: Radiology Impression Abdomen/Pelvis CT 10/27/25 10:42 IMPRESSION: Status post Whipple procedure as described. Right hydronephrosis and hydroureter due to a 5.1 mm calculus in the midportion of the right ureter. Right perinephric stranding. Prostatic enlargement. Reading Location: [place] [id number] D/C Instructions Call your doctor if you observe: Fever of 101 or Higher DC O2, CPAP, BIPAP Needs Home O2 Discharge instructions: No Please Follow Up With: Tung Fleming MD When: Call [phone] for an appointment Meaningful Use Info Meaningful Use Meaningful Use Diagnoses (Choose all that apply): None applicable Discharge Plan Admission Admit Date/Time: 10/27/25 11:25 Primary Reason for Your Visit: stent placement for stone Attending Provider: Tung Fleming Primary Care Provider: Patel Messer Discharge Orders/Prescriptions Prescriptions: New ciprofloxacin HCl [Cipro] 500 mg tablet 500 mg PO BID Qty: 6 0RF oxycodone 5 mg tablet 5 mg PO Q6H PRN (Reason: pain) 7 Days Qty: 14 0RF Continued ascorbic acid (vitamin C) 500 mg Tablet 500 mg PO DAILY zinc 25 mg Tablet 25 mg PO DAILY cholecalciferol (vitamin D3) 125 mcg (5,000 unit) Capsule 125 mcg PO DAILY rye grass extract-quercetin 500-250 mg Tablet 1 tab PO DAILY Creon 12,000-38,000 -60,000 unit Capsule,Delayed Release(Dr/Ec) 1 cap PO BID Rx Instructions: one with breakfast, two with dinner. acetaminophen [Tylenol] 325 mg Tablet 650 mg PO Q4H PRN PRN (Reason: Fever, pain 1-10) Qty: 0 0RF oxycodone 5 mg Tablet 5 mg PO Q4H PRN PRN (Reason: Pain Score 6-10) 7 Days Qty: 15 0RF Held Eliquis 5 mg tablet 5 mg PO BID Hold Instructions: Resume on 11/06/25. Xarelto 20 mg tablet 20 mg PO DAILY Hold Instructions: Resume on 11/06/25. Referrals / Follow Up: Patel Messer MD [Primary Care Provider, Family Practice] Tung Fleming MD [Med Staff - Active Staff, Urology] Disposition Disposition (needs filled in before D/C Order can be placed): Home, Self Care
== END 2025-10-28 10:06 | disposition home or self-care (01) ==
LOC: ED 11:33 → MS3 11:39
PROVIDERS: Admitting Provider Urology; Emergency Provider Emergency Medicine; PCP Family Medicine; Visit Provider Urology
PROC: (CPT 52332; principal; 2025-10-27 17:05)
DX: N13.2 Hydronephrosis with renal and ureteral calculous obstruction (principal); D66 Hereditary factor VIII deficiency; Z86.711 Personal history of pulmonary embolism; N28.9 Disorder of kidney and ureter, unspecified; Z87.891 Personal history of nicotine dependence; Z79.01 Long term (current) use of anticoagulants; Z79.899 Other long term (current) drug therapy
CPT/HCPCS: 52332; 00910; 36415; 74176; 76000; 80048; 81001; 85025; 94668; 96361; 96374; 96375; 96376; 99221; 99284; A4216; C1769; C2617; G0378; J2405